=== PATIENT | male | born 1995 | race Caucasian/White ===

== ENCOUNTER 2021-03-01 18:27 | Emergency (ER) | payer SELFPAY ==
--- NOTE | ~2021-03-01 | XR_ITS ---
EXAMINATION: XR clavicle LT INDICATION: Left clavicle pain TECHNIQUE: Two views of the left clavicle are obtained. COMPARISON: None available FINDINGS: Bone alignment is normal. There is no fracture. The soft tissues are unremarkable. IMPRESSION: 1. No acute osseous abnormality. Reviewed, dictated and finalized at location A.
--- NOTE | ~2021-03-01 | XR_ITS ---
EXAMINATION: XR shoulder LT min 2V INDICATION: Left shoulder pain TECHNIQUE: Four views of the left shoulder are submitted. COMPARISON: None FINDINGS: Normal alignment. No fracture. Glenohumeral and acromioclavicular joint spaces are normal. Soft tissues are unremarkable. IMPRESSION: 1. No acute osseous abnormality. Reviewed, dictated and finalized at location A.
[2021-03-01 18:39] VITALS: BP 145/88; PULSE 95; RESP 16; TEMP 36.9; O2SAT 100
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
== END 2021-03-01 19:27 | disposition home or self-care (01) ==
PROVIDERS: Emergency Provider Nurse Practitioner
DX: S40.212A Abrasion of left shoulder, initial encounter (principal); S40.211A Abrasion of right shoulder, initial encounter; S40.812A Abrasion of left upper arm, initial encounter; S40.811A Abrasion of right upper arm, initial encounter; S60.512A Abrasion of left hand, initial encounter; S60.511A Abrasion of right hand, initial encounter; S46.912A Strain of unspecified muscle, fascia and tendon at shoulder and upper arm level, left arm, initial encounter; V28.4XXA Motorcycle driver injured in noncollision transport accident in traffic accident, initial encounter; T14.8XXA Other injury of unspecified body region, initial encounter; F17.210 Nicotine dependence, cigarettes, uncomplicated
CPT/HCPCS: 73000; 73030; 99213; A4565; G0463

== ENCOUNTER → 2021-04-25 14:05 | Outpatient (CLI) | payer MEDICAID, SELFPAY ==
--- NOTE | ~2021-04-25 | CT_ITS ---
EXAMINATION: CT abdomen pelvis w con EXAM DATE: 04/25/2021 14:30 INDICATION: Abdominal hernia, periumbilical pain. TECHNIQUE: Spiral CT of the abdomen and pelvis was performed following intravenous injection of 100 m L Omnipaque 350. Axial, coronal and sagittal images of the abdomen and pelvis were reviewed. The do se-length product (DLP) for this examination was 861.99 mGy-cm. The exposure was tailored according to patient size (auto mA exposure control), and iterative reconstruction (ASIR) was used as additiona l dose reduction technique. There is no prior study for comparison. FINDINGS: The liver, spleen, adrenal glands and pancreas are unremarkable. Gallbladder is unremarkab le. No biliary obstruction. Portal and splenic veins are patent. Kidneys enhance symmetrically. T here is no hydronephrosis. The prostate is unremarkable. The bladder is unremarkable. There is no retroperitoneal or pelvic lymphadenopathy. Small umbilical fat-containing hernia. The appendix is normal. The stomach and small bowel are unremarkable. There is expected amount of c olonic stool. No free intraperitoneal gas. The heart is normal in size. There are no pericardial or pleural effusions. The lung bases are unremarkable. There are no osteoblastic or osteolytic les ions identified. IMPRESSION: 1. Small umbilical fat-containing hernia. Reviewed, dictated and finalized at location B.
== END ==
PROVIDERS: PCP Student in an Organized Health Care Education/Training Program; Visit Provider Student in an Organized Health Care Education/Training Program
DX: K42.9 Umbilical hernia without obstruction or gangrene (principal)
CPT/HCPCS: 74177; Q9967

== ENCOUNTER 2023-12-31 19:55 | Emergency (ER) | payer OTHER, SELFPAY ==
[2023-12-31 20:00] VITALS: BP 125/65; PULSE 76; RESP 16; TEMP 36.5; O2SAT 99
--- NOTE | 2023-12-31 20:05 | ED.GENADULT ---
HPI - General Adult General Chief complaint: Upper Respiratory Infection Stated complaint: Sore Throat/Congestion/Cough Source: patient, RN notes reviewed and old records reviewed Mode of arrival: ambulatory Limitations: no limitations History of Present Illness HPI narrative: 28-year-old male patient presents to [facility] with complaints of cough, congestion, myalgia, fatigue,fever that started yesterday. Patient states taking [id number] medications with little relief. Patient states here for work note. Related Data Allergies Allergy/AdvReac Type Severity Reaction Status Date / Time No Known Allergies Allergy Unverified 12/31/23 20:08 Review of Systems Constitutional: Constitutional: Reports no additional constitutional complaints, Reports body ache(s), Denies chills, Reports fatigue, Reports fever(s) and Denies headache(s) Eyes: Eyes: Reports no additional eye complaints and Denies blurry vision ENT: Reports system reviewed and no additional complaints, except as documented, Denies vertigo, Denies dizziness, Denies ear discharge, Denies otalgia, Denies facial pain, Denies headache(s), Reports nasal congestion, Denies nasal discharge, Denies sinus pain, Denies sinus pressure and Denies sore throat Cardiovascular: Cardiovascular: Reports no additional cardiovascular complaints, Denies chest pain, Denies chest pain at rest, Denies rapid heart rate and Denies dyspnea Respiratory: Respiratory: Reports no additional respiratory complaints, Reports chest congestion, Reports cough, Denies pain on inspiration, Denies pain with cough and Denies dyspnea Gastrointestinal: Gastrointestinal: Denies abdominal pain, Denies diarrhea, Denies nausea and Denies vomiting Integumentary/Breasts: Skin/Breast: Denies rash Neurologic: Reports system reviewed and no additional complaints, except as documented, Denies vertigo, Denies dizziness and Denies headache(s) Endocrine: Endocrine: Denies fatigue PMFSH Past Medical History Medical History ADHD Social History Social History Smoking status: Current every day smoker Tobacco type: cigarettes Comments At the time of my signature, I reviewed and agree with the nursing past medical, surgical, social, and family history. There is no relevant family history pertinent to the patient complaint. Exam Const: General: cooperative, healthy appearing, no acute distress and well nourished Nutritional Appearance: well nourished Orientation/consciousness: patient oriented x3 Limitations: no limitations HENMT: Head: normal to inspection and normocephalic Ears: external ears normal, TM's normal bilaterally, EAC's normal and mastoids normal Face/Nose/Sinus: Normal nasal mucous membranes and turbinates present and normal facial exam Face and sinus: normal facial exam Mouth: Yes Normal oral and palatal mucosa present, Yes oropharynx normal and Yes moist mucous membranes Throat: tonsils normal, uvula midline and no uvular edema Eyes: General: appearance normal, both eyes and all related structures Sclera: sclerae normal Pupils: Equal, round and reactive pupils present Resp: Effort & Inspection: normal respiratory effort, able to speak in complete sentences, no audible wheezes, no cough, no respiratory distress and no retractions Auscultation: clear to auscultation bilaterally, no crackles, no rales, no rhonchi and no wheezes Cardio: Rate: regular rate Rhythm: regular rhythm Skin: General skin exam: normal color and no rashes or lesions noted Neuro: General: patient oriented x3 Cranial nerves: Yes Equal, round and reactive pupils present Psych: Appearance: grossly normal Mental Status: mental status grossly normal Speech and movement: Normal speech and movement present Affect: normal affect Course Course Emergency Course: Patient is aware of diagnosis, understands and agr
[2023-12-31 20:09] VITALS: BP 125/65; PULSE 76; RESP 16; TEMP 36.5; O2SAT 99
== END 2023-12-31 20:20 | disposition home or self-care (01) ==
PROVIDERS: Emergency Provider Registered Nurse
DX: B34.9 Viral infection, unspecified (principal); Z20.822 Contact with and (suspected) exposure to COVID-19; F17.210 Nicotine dependence, cigarettes, uncomplicated
CPT/HCPCS: 87081; 87426; 87804; 87880; 99213; G0463

== ENCOUNTER 2024-10-17 10:06 | Emergency (ER) | payer OTHER, SELFPAY ==
[2024-10-17 10:32] VITALS: BP 128/74; PULSE 51; RESP 17; TEMP 36.6; O2SAT 97
--- NOTE | 2024-10-17 11:43 | ED_ITS ---
HPI - URI/Sore Throat General Chief Complaint: Upper Respiratory Infection Stated Complaint: URI Time Seen by Provider: 10/17/24 11:43 Focused HPI: This is a 29 year old male that presents to the ER for cold symptoms present since yesterday. Reports cough, congestion, sore throat, myalgias. GENERAL: Well-appearing, well-nourished, and in no acute distress. HEAD: Normocephalic, atraumatic. CHEST: No respiratory distress. Lung sounds coarse, clears with coughing HEART: Regular rate and rhythm.? NEURO: ?Alert and oriented x3. Patient screened in triage and initial orders placed.? ?Additional care and disposition to be based upon?diagnostic testing and treatment. Related Data Allergies Allergy/AdvReac Type Severity Reaction Status Date / Time No Known Allergies Allergy Unverified 12/31/23 20:08 Review of Systems Review of Systems: CONSTITUTIONAL: Reports fever ENT: Reports rhinorrhea, congestion, sore throat RESPIRATORY: Reports cough All systems reviewed & are unremarkable except as noted in HPI and below PMFSH Past Medical History Medical History ADHD Social History Social History (Updated 10/17/24 @ 11:44 by Melissa Zhang PA-C) Smoking status: Current some day smoker Tobacco type: cigarettes Exam Narrative: GENERAL: Well-appearing, well-nourished, and in no acute distress. HEAD: Normocephalic, atraumatic. EYES: EOMI. ENT: Nares clear, no rhinorrhea or epistaxis. Mucous membranes moist. Oropharynx without tonsillar hypertrophy exudate or other lesions. Bilateral TMs pearly gutiérrez non-bulging NECK: Supple. No adenopathy or masses. CHEST: No respiratory distress. No wheezes rales or rhonchi. Coarse lung sounds that clear with cough HEART: Regular rate and rhythm. No murmur heard. Normal peripheral pulses. EXTREMITIES: Normal range of motion. No edema. SKIN: Warm, dry, no rash. NEURO: No focal deficits. Alert and oriented x3. PSYCH: Normal mood and affect Course Course Emergency Course: Patient updated on workup and agrees with plan of care Vital Signs Vital signs: Vital Signs Temperature 97.9 F 10/17/24 10:32 Pulse Rate 51 L 10/17/24 10:32 Respiratory Rate 17 10/17/24 10:32 Blood Pressure 128/74 10/17/24 10:32 Pulse Oximetry 97 10/17/24 10:32 Oxygen Delivery Room Air 10/17/24 10:32 Temperature 97.9 F 10/17/24 10:32 Pulse Rate 51 L 10/17/24 10:32 Respiratory Rate 17 10/17/24 10:32 Blood Pressure 128/74 10/17/24 10:32 Pulse Oximetry 97 10/17/24 10:32 Oxygen Delivery Room Air 10/17/24 10:32 MDM - URI/Sore Throat MDM Narrative Medical decision making narrative: Patient presents the emergency department for cold symptoms ongoing since yesterday. He is afebrile and nontoxic appearing. Oxygen saturation is normal on room air. Lung sounds coarse, but clears with coughing. Patient found to be influenza A positive. Patient updated on his workup and agrees with plan of care. Will be started on Tamiflu. Instructed on further symptomatic care viral infection. He is to follow up with primary provider. He was given warnings to return to the ER Differential Diagnosis Differential diagnosis: Likely upper respiratory infection, sinusitis, viral infection, bronchitis and influenza Lab Data Attestation: I reviewed the patient's lab results. Labs: Lab Results 10/17/24 Range/Units 11:21 Influenza A (RT-PCR) Positive A (Negative) Influenza B (RT-PCR) Negative (Negative) RSV (RT-PCR) Negative (Negative) SARS-CoV-2 RNA (RT-PCR) Negative (Negative) Group A Strep (PCR) Not detected (Negative) Critical Care Time Critical Care Time Critical Care Time: No Discharge Plan Discharge Clinical Impression: Influenza A Patient Disposition: Home, Self-Care Condition: Stable Instructions: Influenza (ED) Additional Instructions: Return to the emergency department for worsening symptoms, or any other concerns Remain well-hydrated, get plenty of rest. Take Tylenol or Motrin over-the-c ounter for pain as needed. Flonase for nasal congestion. Zyrtec for runny nose. Lozenges or Chloraseptic spray for sore throat. Take Tamiflu as prescribed. Albuterol 2 puffs every 4-6 hours as needed for shortness of breath or coughing Follow up with primary care doctor Patient Language: Trinidadian Prescriptions: New oseltamivir 75 mg capsule 75 mg PO Q12H 5 Days Qty: 10 0RF albuterol sulfate 90 mcg/actuation HFA aerosol inhaler 2 puff inhalation QID PRN (Reason: shortness of breath or wheezing) Qty: 8.5 0RF No Action ibuprofen 800 mg tablet 800 mg PO TID PRN (Reason: pain) Qty: 30 0RF baclofen 10 mg tablet 10 mg PO TID Qty: 30 0RF tramadol 50 mg tablet 50 mg PO Q6H PRN (Reason: pain) Qty: 10 0RF Follow-up/Referrals: UNKNOWN,DOCTOR [Primary Care Provider] -
[2024-10-17 11:56] LABS: Strep Group A RT-PCR NOT DETECTED (Negative)
[2024-10-17 12:05] LABS: Influenza A QL RT-PCR Positive (Negative); Influenza B QL RT-PCR Negative (Negative); RSV RNA, RT-PCR Negative (Negative); SARS-CoV-2 RNA PCR Negative (Negative)
[2024-10-17 12:50] VITALS: O2SAT 99
--- OUTSIDE RECORDS SUMMARY | 2024-10-23 17:48 | XMS_ITS | Encounter Summary ---
Author Organization [facility] Address [address] [place] [address]. 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 Name Role Phone Saumya Nunes DO Primary Care Provider + Reason for Visit * Reason Onset Date Comments Results 12/23/2022 Encounter Details Date Type Department Care Team (Late st Contact Info) Description 12/23/2022 Telephone [facility] Family [facility] Internal Medicine [id number] [place] [address] Saumya Nunes DO [facility] [place], [place] [id number] Results Social History Tobacco Use Types Packs/Day Years Used Date Smoking Tobacco: Former Cigarettes 0.5 5 0 06/08/2014 - 06/08/2019 Smokeless Tobacco: Never Alcohol Use Standard Drinks/Week Comments No 0 (1 standard drink = 0.6 oz pur e alcohol) AUDIT-C Answer Date Recorded Frequency of Alcohol Consumption Never 08/08/2019 Average Number of Drinks Not on file 019 Frequency of Binge Drinking Not on file 07/13 PHQ-2 Answer Date Recorded PHQ-2 Score - If the patient scores above 3, please move on to questions 3-9 3 04/03/2021 Sex and Gender Information Value Date Recorded Sex Assigned at Not on file Legal Sex Male 9:05 AM CDT Gender Identity Not on file Sexual Orientation Not on file 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 Recommend 2000 IU supplementation daily. Potassium is mildly low; [id number] mEq daily for 21 days. Then recheck BMP and magnesium. Other labs are stable and can be repeatedin 1 year. documented in this encounter Plan of Treatment Not on file documented as of this encounter Results * MAGNESIUM (01/14/2023 8:16 AM CDT) MAGNESIUM 1.8 1.8 - 2.4 MG/DL 01/14/2023 3:09 PM CDT [facility] 01/14/2023 8:16 AM CDT us Saumya Nunes DO LABORATORY Final Re sult [facility] [address] [place] [address], * (ABNORMAL) BASIC METABOLIC PANEL (01/14/2023 8:16 AM CDT) [facility] SODIUM S/P/B 141 136 - 145 MMOL/L 01/14/2023 3:09 PM CDT [facility] POTASSIUM S/P/B 3.6 3.5 - 5.1 MMOL/L 01/14/2023 3:09 PM CDT [facility] CHLORIDE S/P/B 105 98 - 107 MMOL/L 01/14/2023 3:09 PM CDT [facility] CO2 26.4 21 - 32 MMOL/L 01/14/2023 3:09 PM CDT [facility] GLUCOSE 113(H) 70 - 99 MG/DL 01/14/2023 3:09 PM CDT [facility] BUN 19(H) 7 - 18 MG/DL 01/14/2023 3:09 PM CDT [facility] CREATININE S/P/B 0.82 0.70 - 1.30 MG/DL 01/14/2023 3:09 PM CDT [facility] CALCIUM S/P/B 8.2(L) 8.4 - 10.5 MG/DL 01/14/2023 3:09 PM CDT [facility] ANION GAP 9.6 5 - 15 MMOL/L 01/14/2023 3:09 PM CDT [facility] Comment:REFERENCE RANGE NOT ESTABLISHED OSMOLALITY (CALC) 295 MOSM/KG 023 3:09 PM CDT [facility] Comment:REFERENCE RANGE NOT ESTABLISHED GFR ESTIMATE >90 >90 ML/MIN/1. 73 M2 01/14/2023 3:09 PM CDT [facility] GFR NOTES GFR REFERENCE S: 01/14/2023 3:09 PM CDT [facility] Comment: THE ESTIMATED GFR IS CALCULATED USING THE 2020 CKD-EPI EQUATION. THE FOLLOWING CATEGORIES FOR GRADING RENAL FUNCTION ARE RECOMMENDED BY THE INTERNATIONAL SOCIETY OF NEPHROLOGY (KDIGO 2012 CLINICAL PRACTICE GUIDELINE). G1,NORMAL OR HIGH: >89 ml/min/1.73 m2 G2,MILDLY DECREASED: 60-89 ml/min/1.73 m2 G3A,MILDLY TO MODERATELY DECREASED: 45-59 ml/min/1.73 m2 G3B,MODERATELY TO SEVERELY DECREASED: 30-44 ml/min/1.73 m2 G4,SEVERELY DECREASED: 15-29 ml/min/1.73 m2 G5,KIDNEY FAILURE: <15 ml/min/1.73 m2 01/14/2023 8:16 AM CDT Saumya Nunes DO LABORATORY Final Re sult [facility] [address] [place] [address], documented in this encounter Visit Diagnoses Diagnosis Hypopotassemia- Primary documented in this encounter Additional Health Concerns Assessment Noted Time PHQ-9 Depression Total Score: 12 021 2:00 PM CDT documented as of this encounter Care Teams Bag Press Operator Relationship Specialty Start Date End Date Saumya Nunes DO [address] [place] [id number] PCP - General FAMILY PRACTICE 08/08/19 documented as of this encounter
--- OUTSIDE RECORDS SUMMARY | 2024-10-23 17:48 | XMS_ITS | Encounter Summary ---
Author Organization [facility] Address [address] [place] [address]. [place] [address] Care Team Providers Care Slot Operations Director Name Role Phone Kwesi Shipman DO Primary Care Provider + Reason for Referral * Imaging (Routine) - Closed Specialty Diagnoses / Procedures Referred By Jamison vegas Referred To Contact RADIOLOGY Diagnoses Abdominal hernia without obstruction and without gangrene, recurrence not specified, unspecified hernia type Periumbilical abdominal pain k46.[address] ABD+PEL W CON Kwesi Shipman DO [address] [place] [address] Phone: tel: fax: [facility] [address] [facility] [address] [place] [address] Phone: tel: fax: Referral ID Status Reason Start Date Expiration Date Visits Re quested Visits Authorized [id number] Closed 04/09/2021 05/08/2021 1 1 * Consultation/Treatment (Urgent) - Closed Specialty Diagnoses / Procedures Referred By Jamison vegas Referred To Contact Neurology Psychiatry Diagnoses Severe episode of recurrent major depressive disorder, without psychotic features ([facility]/HCC [facility]/HCC) PTSD (post-traumatic stress disorder) Kwesi Shipman DO [address] [place] [address] Phone: tel: fax: Robbi Montague MD Phone: tel: fax: Referral ID Status Reason Start Date Expiration Date V isits Requested Visits Authorized [id number] Closed Specialty Services 04/03/2021 05/03/2022 99 99 Reason for Visit * Reason Comments Depression follow up Encounter Details Date Type Department Care Team (Late st Contact Info) Description 04/03/2021 2:00 PM CDT Office Visit [facility] Family & Internal Medicine [facility] [address] [place] [address] Kwesi Shipman DO [facility] [place] [address] Depression (follow up ) Social History Tobacco Use Types Packs/Day Years [...] 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 No / Unsure 04/03/2021 1:35 PM CDT documented as of this encounter Last Filed Vital Signs Vital Sign Reading Time Taken Comments Blood Pressure 102/66 04/03/2021 1:56 PM CDT Pulse 88 04/03/2021 1:56 PM CDT Temperature 37 ??C (98.6 ??F) 04/03/2021 1:56 PM CDT Respiratory Rate 16 04/03/2021 1:56 PM CDT Oxygen Saturation 98% 04/03/2021 1:56 PM CDT Inhaled Oxygen Concentration - - Weight 89 kg (196 lb 1.6 oz) 04/03/2021 1:56 PM CDT Height 172.7 cm (5' 8 ) 04/03/2021 1:56 PM CDT Body Mass Index 29.82 04/03/2021 1:56 PM CDT documented in this encounter Patient Instructions * Patient Instructions* Kwesi Shipman DO - 04/03/2021 2:00 PM CDT [facility] Address:??[address], [place] [address] Phone:?? documented in this encounter Progress Notes * Kwesi Shipman DO - 04/03/2021 2:00 PM CDT Images from the original note were not included. GENERAL OFFICE VISIT Encounter Date: 04/03/2021 Chief Complaint: 26-year-old male presents for Depression (follow up ) HPI: Pt has possible hernia in his abdomen. It is not bothering him as much at this time. It has been there for about 4 years. He has not had it evaluated previously. Pt has hx of multiple psychiatric problems. Pt was recently in a mental facility at [facility]; per pt, this was in October. Pt will have moments where he spazes out. He is trying meditation. He quit drinking alcohol. Pt is having difficulty with sleep. His anxiety is going as high as it can. He is not seeing anyone at [facility] at this time and will not go back. Pt was referred to [facility] at some point and was given alprazolam 1 mg. He had a problem with a pill count in the past. He states he is unsure what medications he was given after he was discharged from [facility]. Pt has been on Zyprexa, Cymbalta, and Carbamazepine. He states he had rashes with some of them. He was given Seroquel in the past as well. Review of Systems Constitutional: Negative for fever. Gastrointestinal: See HPI Psychiatric/Behavioral: See HPI Patient Active Problem List Diagnosis ??? Severe episode of recurrent major depressive disorder, without psychotic features (CMS/HCC) ??? Chronic bilateral low back pain without sciatica ??? Vitamin D deficiency ??? Carpal tunnel syndrome of right wrist ??? Hemorrhoids, unspecified hemorrhoid type Past Medical History: Diagnosis Date ??? ADD (attention deficit disorder) ??? Anxiety ??? Depression Past Surgical History: Procedure Laterality Date ??? HAND SURGERY right hand ??? TONSILLECTOMY Family History Problem Relation Name Age of Onset ??? Hypertension Mother ??? Hypertension Father Social History Socioeconomic History ??? Marital status: Spouse name: Not on file ??? Number of children: Not on file ??? Years of education: Not on file ??? Highest education level: Not on file Occupational History ??? 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 Smoking status: Former Smoker Packs/day: 0.50 Years: 5.00 Pack years: 2.50 Types: Cigarettes Quit date: 06/08/2019 Years since quittin.8 ??? Smokeless tobacco: Never Used Substance and Sexual Activity ??? Alcohol use: No ??? Drug use: Yes Frequency: 7.0 times per week Types: Marijuana ??? Sexual activity: Not on file Other Topics Concern ??? Not on file Social History Narrative ??? Not on file Social Determinants of Health Financial Resource Strain: ??? Difficulty of Paying Living Expenses: Food Insecurity: ??? Worried About Running Out of Food in the Last Year: ??? Ran Out of Food in the Last Year: Transportation Needs: ??? Lack of Transportation (Medical): ??? Lack of Transportation (Non-Medical): Physical Activity: ??? Days of Exercise per Week: ??? Minutes of Exercise per Session: Stress: ??? Feeling of Stress : Social Connections: ??? Frequency of Communication with Friends and Family: ??? Frequency of Social Gatherings with Friends and Family: ??? Attends Alevism Services: ??? Active Member of Clubs or Organizations: ??? Attends Club or Organization Meetings: ??? Marital Status: Intimate Partner Violence: ??? Fear of Current or Ex-Partner: ??? Emotionally Abused: ??? Physically Abused: ??? Sexually Abused: Immunization History Administered Date(s) Administered ??? Dtap 07/11/1997 ??? Dtp 1996, 1996, 1996 ??? HPV4 (Gardasil) 04/18/2011, 06/26/2011, 10/27/2011 ??? Hepatitis B Pediatric 1996, 1996, 1996 ??? Hib 1996, 1996, 1996, 07/11/1997 ??? Influenza Adult (Generic) 06/26/2011 ??? MMR 07/11/1997 ??? Opv 1996, 1996, 1996 ??? Varicella Vaccine 03/15/1997, 04/18/2011 Current Outpatient Medications Medication Sig Dispense Refill ??? escitalopram (LEXAPRO) 10 MG tablet Take 1/2 tab daily for one week, then take 1 tablet daily 30 tablet 2 ??? hydrOXYzine 50 MG tablet TK 1 TO 2 TS PO Q 8 H PRF ANXIETY ??? triamcinolone 0.1 % cream Apply topically 2 (two) times daily. 45 g 1 No current facility-administered medications for this visit. Current Outpatient Medications on File Prior to Visit Medication Sig ??? hydrOXYzine 50 MG tablet TK 1 TO 2 TS PO Q 8 H PRF ANXIETY ??? triamcinolone 0.1 % cream Apply topically 2 (two) times daily. No current facility-administered medications on file prior to visit. No Known Allergies Objective: Filed Vitals: 04/03/21 1356 BP: 102/66 Pulse: 88 Resp: 16 Temp: 98.6 ??F (37 ??C) TempSrc: Skin SpO2: 98% Weight: 89 kg (196 lb 1.6 oz) Height: 5' 8 (1.727 m) Physical Exam Constitutional: He is oriented to person, place, and time and well-developed, well-nourished, and in no distress. HENT: Head: Normocephalic and atraumatic. Right Ear: External ear normal. Left Ear: External ear normal. Eyes: Conjunctivae are normal. No scleral icterus. Cardiovascular: Normal rate, regular rhythm and normal heart sounds. Exam reveals no gallop and no friction rub. No murmur heard. Pulmonary/Chest: Effort normal and breath sounds normal. No respiratory distress. He has no wheezes. He has no rales. Abdominal: Soft. Possible hernia palpated to right of umbilicus, pain with palpation but not severe, no pain in RUQ or RLQ, only palpation of given area Musculoskeletal: General: No edema. Cervical back: Neck supple. Neurological: He is alert and oriented to person, place, and time. Skin: Skin is warm and dry. No rash noted. Psychiatric: Mood and affect normal. Nursing note and vitals reviewed. Assessment & Plan: Kwesi was seen today for depression. Diagnoses and all orders for this visit: Severe episode of recurrent major depressive disorder, without psychotic features (CMS/HCC) - Ambulatory Referral to Psychiatry - escitalopram (LEXAPRO) 10 MG tablet; Take 1/2 tab daily for one week, then take 1 tablet daily PTSD (post-traumatic stress disorder) - Ambulatory Referral to Psychiatry - escitalopram (LEXAPRO) 10 MG tablet; Take 1/2 tab daily for one week, then take 1 tablet daily Abdominal hernia without obstruction and without gangrene, recurrence not specified, unspecified hernia type - CT ABD+PEL W CON; Future - CT ABD+PEL W CON Periumbilical abdominal pain - CT ABD+PEL W CON; Future - CT ABD+PEL W CON Vitamin D deficiency - VITAMIN D, 25 OH; Future - VENIPUNC ARM DRAW - VITAMIN D, 25 OH Screening for lipid disorders - LIPID PANEL; Future - VENIPUNC ARM DRAW - LIPID PANEL Screening for endocrine, metabolic and immunity disorder - CBC W/DIFF AUTOMATED; Future - COMPREHENSIVE METABOLIC PANEL; Future - TSH W/REFLEX; Future - VENIPUNC ARM DRAW - CBC W/DIFF AUTOMATED - COMPREHENSIVE METABOLIC PANEL - TSH W/REFLEX Annual physical exam - CBC W/DIFF AUTOMATED; Future - COMPREHENSIVE METABOLIC PANEL; Future - TSH W/REFLEX; Future - LIPID PANEL; Future - VITAMIN D, 25 OH; Future - VENIPUNC ARM DRAW - CBC W/DIFF AUTOMATED - COMPREHENSIVE METABOLIC PANEL - TSH W/REFLEX - LIPID PANEL - VITAMIN D, 25 OH Discussion/Summary: We will start patient on Lexapro today. Discussed side effect profile. Will refer to psychiatry as patient needs psychiatric care given his history. Will order labs per above. Will order CT of abdomen for further evaluation for possible hernia but to rule out other pathology given his chronic abdominal pain as well. Will dictate follow-up based upon above testing and follow-up with psychiatry. Patient verbalized understanding. Kwesi Shipman DO documented in this encounter Plan of Treatment Scheduled Referrals Name Type Priority Associated Diagnoses Orde r Schedule Ambulatory Referral to Psychiatry Referral Routine Severe episode of recurrent major depressive disorder, without psychotic features ([facility]/HCC [facility]) PTSD (post-traumatic stress disorder) Ordered: 04/03/2021 documented as of this encounter Procedures Procedure Name Priority Date/Time Associated Diagnosis Comments CT ABD+PEL W CON Routine 04/25/2021 12:0 0 AM CDT Abdominal hernia without obstruction and without gangrene, recurrence not specified, unspecified hernia type Periumbilical abdominal pain COLLECTION VENOUS BLOOD VENIPUNCTURE Routine 04/03/2021 2:31 PM CDT Vitamin D deficiency Screening for lipid disorders Screening for endocrine, metabolic and immunity disorder Annual physical exam TSH W/REFLEX Routine 04/03/2021 2:31 PM CDT Screening for endocrine, metabolic and immunity disorder Annual physical exam ADDITIONAL TEST INFORMATION Routine 04/03/2021 2:31 PM CDT COMPREHENSIVE METABOLIC PANEL Routine 04/03/2021 2:31 PM CDT Screening for endocrine, metabolic and immunity disorder Annual physical exam LIPID PANEL Routine 04/03/2021 2:31 PM CDT Screening for lipid disorders Annual physical exam CBC W/DIFF AUTOMATED Routine 04/03/2021 2:31 PM CDT Screening for endocrine, metabolic and immunity disorder Annual physical exam VITAMIN D, 25 OH Routine 04/03/2021 2:31 PM CDT Vitamin D deficiency Annual physical exam documented in this encounter Results * CT ABD+PEL W CON (04/25/2021 12:00 AM CDT) Anatomical Region Laterality Modality Abdomen Computed Tomogra phy 04/25/[address] Final Re sult * ADDITIONAL TEST INFORMATION (04/03/2021 2:31 PM CDT) SPEC DESCRIPTION [facility] Comment: Whole blood, unspun or partially spun gel barrier tube was received more than 6 hours since collection. A false elevation of K, Phos and LD as well as a false decrease in glucose may occur due to prolonged contact with red cells. 04/03/2021 2:31 PM CDT 04/04/2021 5:32 AM CDT Kwesi Shipman DO LABORATORY Final Re sult [facility] [address] [place] [address] * (ABNORMAL) VITAMIN D, 25 OH (04/03/2021 2:31 PM CDT) VITAMIN D 25 HYDROXY TOTAL S/P/B 30.4 >29.9 ng/mL [facility] Comment: Vitamin D, 25-Hydroxy reports concentrations of two common forms, 25-OHD2 and 25-OHD3. 25-OHD3 indicates both endogenous production and supplementation. 25-OHD2 is an indicator of exogenous sources, such as diet or supplementation. Therapy is based on measurement of Total 25-OHD, with levels <20 ng/mL indicative of Vitamin D deficiency, while levels between 20 ng/mL and 30 ng/mL suggest insufficiency. Optimal levels are >=30 ng/mL. Vitamin-D is fat-soluble and therefore inadvertent or intentional ingestion of excessively high amounts could be toxic. Studies in children and adults suggest blood levels would need to exceed 150 ng/mL before there is any concern. Mickie Minaya Bischoff-ferrari HA et al. Evaluation, treatment, and prevention of vitamin D deficiency: an Endocrine Society clinical practice guideline. J Clin Endocrinol Metab. 2011;96(7):1911-30.This test is performed by a Liquid Chromatography-Tandem Mass Spectrometry (LC-MS/MS) method. This test was developed and its performance characteristics determined by the [employer] (app). It has not been cleared or approved by the U.S. FDA. The [employer]). is regulated under Clinical Laboratory Improvement Amendments (CLIA) as qualified to perform high-complexity testing. This test is used for clinical purposes. It should not be regarded as investigational or for research. Vitamin D, 25-Hydroxy reports concentrations of two common forms, 25-OHD2 and 25-OHD3. 25-OHD3 indicates both endogenous production and supplementation. 25-OHD2 is an indicator of exogenous sources, such as diet or supplementation. Therapy is based on measurement of Total 25-OHD, with levels <20 ng/mL indicative of Vitamin D deficiency, while levels between 20 ng/mL and 30 ng/mL suggest insufficiency. Optimal levels are > or = 30 ng/mL. Vitamin D is fat-soluble and therefore inadvertent or intentional ingestion of excessively high amounts could be toxic. Studies in children and adults suggest blood levels would need to exceed 150 ng/mL before there is any concern. Mickie Minaya, Sulaiman ESCALERA et al., Evaluation, treatment, and prevention of vitamin D deficiency: an Endocrine Society clinical practice guideline. J Clin. Endocrinol. Metab. 2011;96(7):1911-30. VITAMIN D 25 HYDROXY D3 S/P/B 30.4 ng/mL [facility] [facility] [employer] [employer] Comment: This test was developed and its analytical performance characteristics have been determined by [facility] It has not been cleared or approved by the FDA. This assay has been validated pursuant to the CLIA regulations and is used for clinical purposes. VITAMIN D 25 HYDROXY D2 S/P/B <1.0(L) ng/mL [facility]enn[facility] [employer]. Comment: This test was developed and its analytical performance characteristics have been determined by [facility] [employer] It has not been cleared or approved by the FDA. This assay has been validated pursuant to the CLIA regulations and is used for clinical purposes. 04/03/2021 2:31 PM CDT 04/04/2021 5:15 AM CDT Kwesi Shipman DO LABORATORY Final Re sult [facility] [place] [facility] [employer]. [address], [address] [place] [address] * LIPID PANEL (04/03/2021 2:31 PM CDT) CHOLESTEROL 158 <200 mg/dL [facility] HDL 71 > OR = 40 mg/dL [facility] TRIGLYCERIDES 51 <150 mg/dL [facility] LDL (CALCULATED) 74 mg/dL (calc) [facility] Comment: Reference range: <100 Desirable range <100 mg/dL for primary prevention; ?? <70 mg/dL for patients with CHD or diabetic patients with > or = 2 CHD risk factors. LDL-C is now calculated using the Gurvinder-Noble calculation, which is a validated novel method providing better accuracy than the Friedewald equation in the estimation of LDL-C. Gurvinder SS et al. KAVYA. 2013;310(19): 2132-1534 (http://education.Triage.[employer]/faq/CJW935) CHOL/HDL RATIO 2.2 <5.0 (calc) [facility] NON HDL CHOLESTEROL 87 <130 mg/dL (calc) [facility] Comment: For patients with diabetes plus 1 major ASCVD risk factor, treating to a non-HDL-C goal of <100 mg/dL (LDL-C of <70 mg/dL) is considered a therapeutic option. 04/03/2021 2:31 PM CDT 04/04/2021 5:32 AM CDT Kwesi Shipman DO LABORATORY Final Re sult Performing Organization Address City/[facility]/ZIP Co de Phone Number [facility] [address] [place] [address] * TSH W/REFLEX (04/03/2021 2:31 PM CDT) TSH 1.93 0.40 - 4.50 mIU/L [facility] 04/03/2021 2:3 1 PM CDT 04/04/2021 5:32 AM CDT Kwesi Shipman DO LABORATORY Final Re sult Performing Organization Address [facility] Co de Phone Number [facility] [address] [place] [address] * COMPREHENSIVE METABOLIC PANEL (04/03/2021 2:31 PM CDT) GLUCOSE 69 65 - 99 mg/dL [facility] Comment: ? Fasting reference interval BUN 15 7 - 25 mg/dL [facility] CREATININE S/P/B 0.97 0.60 - 1.35 mg/dL [facility] EGFR NON-AFR. AMER. 108 > OR = 60 mL/min/1. 73m2 [facility] EGFR AFR. AMER. 125 > OR = 60 mL/min/1. 73m2 [facility] BUN CREATININE RATIO NOT APPLICABLE 6 - 22 (calc) [facility] SODIUM S/P/B 141 135 - 146 mmol/L [facility] POTASSIUM S/P/B 4.9 3.5 - 5.3 mmol/L [facility] CHLORIDE S/P/B 102 98 - 110 mmol/L [facility] CO2 22 20 - 32 mmol/L [facility] CALCIUM S/P/B 10.0 8.6 - 10.3 mg/dL [facility] TOTAL PROTEIN S/P/B 7.0 6.1 - 8.1 g/dL [facility] ALBUMIN S/P/B 4.4 3.6 - 5.1 g/dL [facility] GLOBULIN 2.6 1.9 - 3.7 g/dL (calc) [facility] ALBUMIN/GLOBULI N RATIO 1.7 1.0 - 2.5 (calc) [facility] BILIRUBIN TOTAL S/P/B 0.5 0.2 - 1.2 mg/dL [facility] ALKALINE PHOSPHATASE S/P/B 63 36 - 130 U/L [facility] AST 19 10 - 40 U/L [facility] ALT 14 9 - 46 U/L [facility] 04/03/2021 2:31 PM CDT 04/04/2021 5:32 AM CDT Kwesi Shipman DO LABORATORY Final Re sult [facility] [address] [facility] [place] [address] * (ABNORMAL) CBC W/DIFF AUTOMATED (04/03/2021 2:31 PM CDT) WBC 7.8 3.8 - 10.8 Thousand/u L [facility] RBC 5.48 4.20 - 5.80 Million/uL [facility] HGB 17.1 13.2 - 17.1 g/dL [facility] HCT 51.4(H) 38.5 - 50.0 % [facility] MCV 93.8 80.0 - 100.0 fL [facility] MCH 31.2 27.0 - 33.0 pg [facility] MCHC 33.3 32.0 - 36.0 g/dL [facility] RDW 12.0 11.0 - 15.0 % [facility] PLT 302 140 - 400 Thousand/u L [facility] MPV 8.9 7.5 - 12.5 fL [facility] ABS. NEUTROPHILS 3,970 1,500 - 7,800 cells/uL [facility] ABS. LYMPHOCYTES 2,597 850 - 3,900 cells/uL [facility] ABS. MONOCYTES 749 200 - 950 cells/uL [facility] ABS. EOSINOPHILS 421 15 - 500 cells/uL [facility] ABS. BASOPHILS 62 0 - 200 cells/uL [facility] SEG NEUTROPHILS 50.9 % [facility] LYMPHOCYTES 33.3 % [facility] MONOCYTES 9.6 % [facility] EOSINOPHILS 5.4 % [facility] BASOPHILS 0.8 % [facility] 04/03/2021 2:31 PM CDT 04/04/2021 5:32 AM CDT Kwesi Shipman DO LABORATORY Final Re sult [facility] [address] [place] [address] documented in this encounter Visit Diagnoses Diagnosis Severe episode of recurrent major depressive disorder, without psychotic features ([facility]/HCC [facility])- Primary PTSD (post-traumatic stress disorder) Posttraumatic stress disorder Abdominal hernia without obstruction and without gangrene, recurrence not specified, unspecified hernia type Periumbilical abdominal pain Abdominal pain, periumbilic Vitamin D deficiency Unspecified vitamin D deficiency Screening for lipid disorders Screening for endocrine, metabolic and immunity disorder Annual physical exam Routine general medical examination at a health care facility documented in this encounter Additional Health Concerns Assessment Noted Time PHQ-9 Depression Total Score: 12 021 2:00 PM CDT documented as of this encounter Care Teams Slot Operations Director Relationship Specialty Start Date End Date Kwesi Shipman DO [address] [place] [id number] PCP - General FAMILY PRACTICE 08/08/19 documented as of this encounter
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
--- OUTSIDE RECORDS SUMMARY | 2024-10-23 17:48 | XMS_ITS | Encounter Summary ---
Author Organization [facility] Address [address] [place] [address]. [place], [place] [id number] [place] [address] Care Team Providers Care Ultra Sound Technician Name Role Phone Kwesi Shipman DO Primary Care Provider + Encounter Details Date Type Department Care Team (Latest Contact Info) Description 02/16/2020 Travel Social History Tobacco Use Types Packs/Day Years [...] 07/13 PHQ-2 Answer Date Recorded PHQ-2 Score 5 09/12/2019 Sex and Gender Information Value Date Recorded Sex Assigned at Not on file Legal Sex Male 9:05 AM CDT Gender Identity Not on file Sexual Orientation Not on file COVID-19 Exposure Response Date Recorded In the last month, have you been in contact with someone who was confirmed or suspected to have Coronavirus / COVID-19? No / Unsure 02/16/2020 7:04 AM CDT documented as of this encounter Plan of Treatment Not on file documented as of this encounter Visit Diagnoses Not on filedocumented in this encounter Care Teams Ultra Sound Technician Relationship Specialty Start Date End Date Kwesi Shipman DO [address] [place], [place] [id number] PCP - General FAMILY PRACTICE 08/08/19 documented as of this encounter
--- OUTSIDE RECORDS SUMMARY | 2024-10-23 17:48 | XMS_ITS | Encounter Summary ---
Author Organization [facility] Address [address] [place] [address]. [place] [id number] [place], [place] [id number] Care Team Providers Care Store Team Member Name Role Phone Kwesi Shipman DO Primary Care Provider + Encounter Details Date Type Department Care Team (Latest Contact Info) Description 08/23/2019 6:09 PM CONSERVATION BIOLOGY PROFESSOR - 08/23/2019 11:59 PM [facility] Hospital Encounter [facility] [place] [address] Kwesi Shipman DO [address] [place], [place] [phone] Discharge Disposition: Home or Self Care (Routine Discharge) Social History Tobacco Use Types Packs/Day Years [...] of Binge Drinking Not on file 07/13 Sex and Gender Information Value Date Recorded Sex Assigned at Not on file Legal Sex Male 9:05 AM CDT Gender Identity Not on file Sexual Orientation Not on file documented as of this encounter Medications at Time of Discharge duloxetine 30 MG capsuleIndication s:Severe episode of recurrent major depressive disorder, without psychotic features ([facility]/HCC [facility]/HCC) Take 1 tab daily for 1 week, then take 2 tabs daily 60 capsule 2 08/08/2019 09/12/2019 documented as of this encounter Plan of Treatment Not on file documented as of this encounter Procedures Procedure Name Priority Date/Time Associated Diagnosis Comments TSH W/REFLEX Routine 08/23/2019 1:41 PM CONSERVATION BIOLOGY PROFESSOR Annual physical exam Screening for endocrine, metabolic and immunity disorder COMPREHENSIVE METABOLIC PANEL Routine 08/23/2019 1:41 PM CONSERVATION BIOLOGY PROFESSOR Annual physical exam Screening for endocrine, metabolic and immunity disorder CBC W/DIFF AUTOMATED Routine 08/23/2019 1:41 PM CONSERVATION BIOLOGY PROFESSOR Annual physical exam Screening for endocrine, metabolic and immunity disorder VITAMIN D, 25 OH Routine 08/23/2019 1:41 PM CONSERVATION BIOLOGY PROFESSOR Annual physical exam Screening for endocrine, metabolic and immunity disorder documented in this encounter Results * (ABNORMAL) VITAMIN D, 25 OH (08/23/2019 1:41 PM CONSERVATION BIOLOGY PROFESSOR) Pathologist [facility] VITAMIN D 25 HYDROXY S/P/B 19(L) 30 - 100 NG/ML 08/23/2019 8:18 PM CONSERVATION BIOLOGY PROFESSOR [facility] Comment: ? INTERPRETATION ? DEFICIENT ??<20 ? INSUFFICIENT 20-29 ?SUFFICIENT 30-100 08/23/2019 1:41 PM CONSERVATION BIOLOGY PROFESSOR us Kwesi Shipman DO LABORATORY Final Re sult [facility] [address] [place] [address], [place] [phone] * TSH W/REFLEX (08/23/2019 1:41 PM CONSERVATION BIOLOGY PROFESSOR) Pathologist [facility] TSH 2.520 0.358 - 3.74 uIU/ML 08/23/2019 7:53 PM [facility] Comment: HIGH DOSES OF BIOTIN MAY INTERFERE WITH THIS TEST RESULT. CORRELATION TO CLINICAL HISTORY AND PRESENTATION RECOMMENDED. FREE T4 NOT INDICATED 08/23/2019 1:41 PM CONSERVATION BIOLOGY PROFESSOR Kwesi Shipman DO LABORATORY Final Re sult [facility] [address] [place] [address], [place] [phone] * (ABNORMAL) COMPREHENSIVE METABOLIC PANEL (08/23/2019 1:41 PM CONSERVATION BIOLOGY PROFESSOR) GLUCOSE 74 70 - 99 MG/DL 08/23/2019 7:53 PM [facility] BUN 12 7 - 18 MG/DL 08/23/2019 7:53 PM [facility] CREATININE S/P/B 0.91 0.7 - 1.3 MG/DL 08/23/2019 7:53 PM [facility] SODIUM S/P/B 141 136 - 145 MMOL/L 08/23/2019 7:53 PM [facility] POTASSIUM S/P/B 4.1 3.5 - 5.1 MMOL/L 08/23/2019 7:53 PM [facility] CHLORIDE S/P/B 108 100 - 108 MMOL/L 08/23/2019 7:53 PM [facility] CO2 26.8 21 - 32 MMOL/L 08/23/2019 7:53 PM [facility] CALCIUM S/P/B 8.9 8.5 - 10.1 MG/DL 08/23/2019 7:53 PM [facility] BILIRUBIN TOTAL S/P/B 0.7 0.2 - 1.2 MG/DL 08/23/2019 7:53 PM [facility] TOTAL PROTEIN S/P/B 6.8 6.4 - 8.2 G/DL 08/23/2019 7:53 PM [facility] ALBUMIN S/P/B 4.2 3.4 - 5.0 G/DL 08/23/2019 7:53 PM [facility] AST 14(L) 15 - 37 U/L 08/23/2019 7:53 PM [facility] ALT 24 16 - 60 U/L 08/23/2019 7:53 PM [facility] ALKALINE PHOSPHATASE S/P/B 72 50 - 136 U/L 08/23/2019 7:53 PM [facility] ANION GAP 6.2 5 - 15 MMOL/L 08/23/2019 7:53 PM [facility] BUN CREATININE RATIO 13.2 6 - 26 08/23/2019 7:53 PM [facility] A/G RATIO 1.6 1.0 - 2.0 RATIO 08/23/2019 7:53 PM [facility] EGFR NON-AFR. AMER. >90 >90 ML/MIN/1.7 3 M2 08/23/2019 7:53 PM [facility] EGFR AFR. AMER. >90 >90 ML/MIN/1.7 3 M2 08/23/2019 7:53 PM [facility] Comment: NOTE: eGFR is not calculated for patients <18 years of age. This is an estimated GFR (CKD EPI) and should not be used for calculating drug doses. 08/23/2019 1:41 PM CONSERVATION BIOLOGY PROFESSOR us Kwesi Shipman DO LABORATORY Final Re sult [facility] [address] [place] [address], [place] [phone] * (ABNORMAL) CBC W/DIFF AUTOMATED (08/23/2019 1:41 PM CONSERVATION BIOLOGY PROFESSOR) [facility] WBC 8.8 4.5 - 11.0 x10'3/uL 08/23/2019 8:08 PM [facility] RBC 5.47 4.70 - 6.10 x10'6/uL 08/23/2019 8:08 PM [facility] HGB 16.4 14.0 - 18.0 G/DL 08/23/2019 8:08 PM [facility] HCT 50.3 43.0 - 54.0 % 08/23/2019 8:08 PM [facility] MCV 92.0 80.0 - 94.0 FL 08/23/2019 8:08 PM [facility] MCH 30.0 27.0 - 31.0 PG 08/23/2019 8:08 PM [facility] MCHC 32.6 32.0 - 36.0 G/DL 08/23/2019 8:08 PM [facility] RDW 11.9 11.5 - 14.5 % 08/23/2019 8:08 PM [facility] PLT 265 130 - 400 x10'3/uL 08/23/2019 8:08 PM [facility] MPV 10.1 9.3 - 12.2 FL 08/23/2019 8:08 PM [facility] DIFFERENTIAL TYPE AUTOMATED DIFFERENTIAL 08/23/2019 8:08 PM [facility] NEUTROPHILS % 49.6 % 08/23/2019 8:08 PM [facility] LYMPHOCYTES % 35.6 % 08/23/2019 8:08 PM [facility] MONOCYTES % 9.8 % 08/23/2019 8:08 PM [facility] EOSINOPHILS 4.0 % 08/23/2019 8:08 PM CONSERVATION BIOLOGY PROFESSOR [facility] BASOPHILS 0.7 % 08/23/2019 8:08 PM [facility] IMMATURE GRANS % 0.3 % 08/23/20 19 8:08 PM [facility] ABS. NEUTROPHILS TOTAL 4.35 1.80 - 7.70 x10'3/uL 08/23/2019 8:08 PM [facility] ABS. LYMPHOCYTES 3.12 1.00 - 4.80 x10'3/uL 08/23/2019 8:08 PM [facility] ABS. MONOCYTES 0.86(H) 0.30 - 0.82 x10'3/uL 08/23/2019 8:08 PM [facility] ABS. EOSINOPHILS 0.35 0.04 - 0.54 x10'3/uL 08/23/2019 8:08 PM [facility] ABS. BASOPHILS 0.06 0.01 - 0.08 x10'3/uL 08/23/2019 8:08 PM [facility] ABS. IMMATURE GRANULOCYTES 0.03 0.00 - 0.49 x10'3/uL 08/23/2019 8:08 PM [facility] 08/23/2019 1:41 PM CONSERVATION BIOLOGY PROFESSOR us Kwesi Shipman DO LABORATORY Final Re sult [facility] [address] [place] [address], [place] [phone] documented in this encounter Visit Diagnoses Diagnosis Annual physical exam Routine general medical examination at a health care facility Screening for endocrine, metabolic and immunity disorder documented in this encounter Care Teams Store Team Member Relationship Specialty Start Date End Date Kwesi Shipman DO [address] [place] [id number] PCP - General FAMILY PRACTICE 08/08/19 documented as of this encounter
--- OUTSIDE RECORDS SUMMARY | 2024-10-23 17:48 | XMS_ITS | Encounter Summary ---
Author Organization [facility] Address [address] [place] [address]. 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 No / Unsure 04/03/2021 1:35 PM CDT documented as of this encounter Progress Notes * Sandra Tobar MA - 05/01/2021 11:16 AM CDT Patient notified and v/u . He will call back if he wants referral * Yanely Gutierrez RRT - 04/30/2021 11:18 AM CDT lmtrc * Kwesi Shipman DO - 04/29/2021 8:24 PM CDT Please let pt know we have the results of his CT scan of his abdomen and pelvis from 04/25/21. Onlynotable finding is a small umbilical hernia. If it is still causing him pain, he can talk to a surgeon about this. Referral okay if needed. documented in this encounter Plan of Treatment Not on file documented as of this encounter Visit Diagnoses Not on filedocumented in this encounter Additional Health Concerns Assessment Noted Time PHQ-9 Depression Total Score: 12 021 2:00 PM CDT documented as of this encounter Care Teams Attorney At Law Relationship Specialty Start Date End Date Kwesi Shipman DO [address] [place] [address] PCP - General FAMILY PRACTICE 08/08/19 documented as of this encounter
--- OUTSIDE RECORDS SUMMARY | 2024-10-23 17:48 | XMS_ITS | Encounter Summary ---
Author Organization [facility] Address [address] [place] [address]. [place] [address] Care Team Providers Care Technical Specialist Cytogenetics Name Role Phone Kwesi Shipman DO Primary Care Provider + Reason for Visit * Reason Comments MRI (SCAN) Encounter Details Date Type Department Care Team (Latest Contact Info) Description 10/07/2019 Scan HEALTH INFO [facility] Scanned, Documents MRI (SCAN) Social History Tobacco Use Types Packs/Day Years [...] on file documented as of this encounter Plan of Treatment Not on file documented as of this encounter Procedures Procedure Name Priority Date/Time Associated Diagnosis Comments MRI GENERIC Routine 10/07/2019 documented in this encounter Results * MRI (10/07/2019) Anatomical Region Laterality Modality Other us Documents Scanned SCANNING Edited Result - Final documented in this encounter Visit Diagnoses Not on filedocumented in this encounter Care Teams Technical Specialist Cytogenetics Relationship Specialty Start Date End Date Kwesi Shipman DO [address] [place] [id number] PCP - General FAMILY PRACTICE 08/08/19 documented as of this encounter
--- OUTSIDE RECORDS SUMMARY | 2024-10-23 17:48 | XMS_ITS | Encounter Summary ---
Author Organization [facility] Address [address] [place] [address]. [place] [address] Care Team Providers Care Poultry Dressing Worker Name Role Phone Kwesi Shipman DO Primary Care Provider + Reason for Visit * Reason Onset Date Comments Medication 11/07/2019 Encounter Details Date Type Department Care Team (Late st Contact Info) Description 11/07/2019 Telephone [facility] Medical Group Family & Internal Medicine [place] [address] [place] [phone] Kwesi Shipman DO [address] [place] [address] Medication Social History Tobacco Use Types Packs/Day Years [...] on file documented as of this encounter Progress Notes * Ritika Pablo RN - 11/09/2019 2:33 PM CST rx sent. PRINTER * Kwesi Shipman DO - 11/07/2019 3:47 PM CST As long as he will see psych in the future, we can do a refill of it for now. Can do 30 days of each with a refill. PRINTER * KOREY Dillon - 11/07/2019 3:21 PM CST Meant to go to you PRINTER * Norma Cifuentes MA - 11/07/2019 3:12 PM CST Requesting refill on Visteral 25mg 2 caps q 4 hours prn anxiety and Zyrpexa 5 mg qhs . [facility]. Mom is wanting to know if you are comfortable filling. States he will see psych as out patient. [facility] PRINTER documented in this encounter Plan of Treatment Not on file documented as of this encounter Visit Diagnoses Diagnosis Severe episode of recurrent major depressive disorder, without psychotic features ([facility]/H[facility]/HCC)- Primary documented in this encounter Care Teams Poultry Dressing Worker Relationship Specialty Start Date End Date Kwesi Shipman DO [address] [place] [address] PCP - General FAMILY PRACTICE 08/08/19 documented as of this encounter
--- OUTSIDE RECORDS SUMMARY | 2024-10-23 17:48 | XMS_ITS | Encounter Summary ---
Author Organization [facility] Address [address] [place] [address]. [place] [address] Care Team Providers Care Shipper/Receiver Name Role Phone Kwesi Shipman DO Primary Care Provider + Reason for Visit * Reason Onset Date Comments Medication Request 09/14/2019 Encounter Details Date Type Department Care Team (Late st Contact Info) Description 09/14/2019 Telephone [facility] Medical Group Family & Internal Medicine [place] [phone] [place] [address] Kwesi Shipman DO [address] [place], [place] [phone] Medication Request Social History Tobacco Use Types Packs/Day Years [...] as of this encounter Progress Notes * Norma Cifuentes MA - 09/20/2019 9:32 AM CSTAddended by: NORMA CIFUENTES on: 09/20/2019 09:32 AM Modules accepted: Orders USION OPERATOR * Norma Cifuentes MA - 09/20/2019 9:31 AM CST Patients mom informed of ok for MRI. MRI ordered for [place] per her request. tn USION OPERATOR * Ritika Pablo RN - 09/20/2019 8:59 AM CST LMTC 09/20/19 USION OPERATOR * Patsy Sepulveda MA - 09/19/2019 4:58 PM CST LM for pt. 09/19/19 USION OPERATOR * Kwesi Shipman DO - 09/15/2019 3:14 PM CST Pt's XR results were just read. Pt does show some narrowing at L5-S1 in disc space. OK to do MRI ofLumbar Spine w/o contrast. USION OPERATOR * Patsy Sepulveda MA - 09/14/2019 1:21 PM CST Spoke with pt's mother and she said that pt brought in XR's from chiropractor at time of OV. I think I may have over heard you talking to Debi about this patient or a different pt saying that X-raysfrom chiropractors are not exactly sufficient for insurance companies. I told pt's mother that pt will need to probably have additional imaging. She would like to know if/when orders will be placed in patients chart? What would you like me to order? USION OPERATOR * Kwesi Shipman DO - 09/14/2019 12:52 PM CST OK to fill cyclobenzaprine. I don't believe pt has obtained XRs yet, so can't even consider an MRI until those are obtained. If pt has had any other imaging, it would be helpful to request this as well as I don't see any in our previous records from this previous doc. Please relay this information to the patient himself. USION OPERATOR * Ronda Schaffer - 09/14/2019 12:41 PM CST Pt mother calling in for muscle relaxer needs refilled. Pt mother also asking MRI orders to see what is actually wrong with his back. USION OPERATOR documented in this encounter Plan of Treatment Not on file documented as of this encounter Visit Diagnoses Diagnosis Chronic bilateral low back pain without sciatica- Primary documented in this encounter Care Teams Shipper/Receiver Relationship Specialty Start Date End Date Kwesi Shipman DO [address] [place] [phone] PCP - General FAMILY PRACTICE 08/08/19 documented as of this encounter
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
--- OUTSIDE RECORDS SUMMARY | 2024-10-23 17:48 | XMS_ITS | Encounter Summary ---
Author Organization [facility] Address [address] [place] [address]. [place] [address] Care Team Providers Care Clerical Warehouseman Name Role Phone Kwesi Shipman DO Primary Care Provider + Encounter Details Date Type Department Care Team (Latest Contact Info) Description 12/14/2019 Travel Social History Tobacco Use Types Packs/Day [...] on filedocumented in this encounter Care Teams Clerical Warehouseman Relationship Specialty Start Date End Date Kwesi Shipman DO [address] [place] [id number] PCP - General FAMILY PRACTICE 08/08/19 documented as of this encounter
--- OUTSIDE RECORDS SUMMARY | 2024-10-23 17:48 | XMS_ITS | Encounter Summary ---
Author Organization [facility] Address [address] [place] [address]. [place] [address] Care Team Providers Care Casket Assembler Name Role Phone Kwesi Shipman DO Primary Care Provider + Encounter Details Date Type Department Care Team (Latest Contact Info) Description 08/08/2019 Scan HEALTH INFO [facility] Scanned, Documents Social History Tobacco Use Types Packs/Day Years [...] on filedocumented in this encounter Care Teams Casket Assembler Relationship Specialty Start Date End Date Kwesi Shipman DO [address] [place], [place] [phone] PCP - General FAMILY PRACTICE 08/08/19 documented as of this encounter
--- OUTSIDE RECORDS SUMMARY | 2024-10-23 17:48 | XMS_ITS | Encounter Summary ---
Author Organization [facility] Address [address] [place] [address]. [place], [place] [phone] [place], [place] [id number] Care Team Providers Care Donor Services Technician Name Role Phone Mahnaz Shipmanchary Dayami HURTADO Primary Care Provider + Encounter Details Date Type Department Care Team (Late st Contact Info) Description 04/16/2020 Orders Only [facility] Medical Group Multispecialty Care - [address], [address] [place] [address] Whit Daniels RN Social History Tobacco Use Types Packs/Day Years [...] have Coronavirus / COVID-19? No / Unsure 04/16/2020 3:03 PM CDT documented as of this encounter Plan of Treatment Not on file documented as of this encounter Visit Diagnoses Not on filedocumented in this encounter Care Teams Donor Services Technician Relationship Specialty Start Date End Date Kwesi Shipman DO [address] [place] [address] PCP - General FAMILY PRACTICE 08/08/19 documented as of this encounter
--- OUTSIDE RECORDS SUMMARY | 2024-10-23 17:48 | XMS_ITS | Encounter Summary ---
Author Organization [facility] Address [address] [place] [address]. 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 No / Unsure 04/03/2021 1:35 PM CDT documented as of this encounter Progress Notes * Lorena Carrillo MA - 04/29/2021 1:22 PM CDT Pt v/u to labs. BB 04/29/2021 * Sandra Tobar MA - 04/12/2021 9:27 AM CDT [facility] 04/12/21. Contact letter sent * Sandra Tobar MA - 04/11/2021 2:57 PM CDT [facility] 04/11/21 * Norma Cifuentes MA - 04/10/2021 12:34 PM CDT 04/10/21 tn * Norma Cifuentes MA - 04/10/2021 12:33 PM CDT ----- Message from Kwesi Shipman DO sent at 04/09/2021 7:52 PM CDT ----- Labs are mostly unremarkable except for one of his blood tests showed elevated hematocrit. This is likely incidental and transient; will recheck at future OV in 3-6 months. Otherwise labs look okay and can be repeated in 1 year or sooner if needed. documented in this encounter Plan of Treatment Not on file documented as of this encounter Visit Diagnoses Not on filedocumented in this encounter Additional Health Concerns Assessment Noted Time PHQ-9 Depression Total Score: 12 021 2:00 PM CDT documented as of this encounter Care Teams Welt Pocket Machine Operator Relationship Specialty Start Date End Date Kwesi Shipman DO [address] [place] [id number] PCP - General FAMILY PRACTICE 08/08/19 documented as of this encounter
--- OUTSIDE RECORDS SUMMARY | 2024-10-23 17:48 | XMS_ITS | Encounter Summary ---
Author Organization [facility] Address [address] [place] [address]. [place] [address] Care Team Providers Care Acquisition Manager Name Role Phone Kwesi Shipman DO Primary Care Provider + Reason for Visit * Reason Onset Date Comments Psychiatric Problem 10/19/2019 Encounter Details Date Type Department Care Team (Late st Contact Info) Description 10/19/2019 Telephone [facility] Medical Group Family & Internal Medicine [phone] [place] [phone] Kwesi Shipman DO [address] [place] [address] Psychiatric Problem Social History Tobacco Use Types Packs/Day Years [...] as of this encounter Progress Notes * Kwesi Shipman DO - 10/20/2019 10:30 AM CST Thank you for the update. ING MACHINE TENDER * Norma Cifuentes MA - 10/20/2019 10:24 AM CST Patient went to [facility] yesterday and was admitted to [facility] in [place] today per Laura (mom) ING MACHINE TENDER * Radha Sánchez MA - 10/19/2019 3:01 PM CST Patient's mother informed and v/u. She is wanting to wait until tomorrow to take patient to inpatient facility that is accepted by her insurance. The patient also is agreeable to be placed inpatient tomorrow. I did explain that it would be better to have patient take to have care today, with his suicide ideation he needs 24 hour watch for safety an this is easier to be done inpatient. She is still going to wait until tomorrow because patient is willing to be treated tomorrow. She will give us an update tomorrow. ING MACHINE TENDER * Kwesi Shipman DO - 10/19/2019 8:25 AM CST I would actually recommend ER evaluation today given that description. ING MACHINE TENDER * Ronda Schaffer - 10/19/2019 8:20 AM CST Patients mother came in to the office to ask about rehab facilitations she could have Jj check himself into. She said last night he was drinking a lot and started mentioning taking his own life, drinking bleach, he was hitting his head against a window. She said he has been talking suicidally fora while now and she is getting worn out and needs him to check in somewhere. I gave her a flier for [facility] rehab center and a phone number to call [facility]. Her goal is to get him checkedin somewhere today so that he can get the help he needs. ING MACHINE TENDER documented in this encounter Plan of Treatment Not on file documented as of this encounter Visit Diagnoses Not on filedocumented in this encounter Care Teams Acquisition Manager Relationship Specialty Start Date End Date Kwesi Shipman DO [address] [place] [id number] PCP - General FAMILY PRACTICE 08/08/19 documented as of this encounter
--- OUTSIDE RECORDS SUMMARY | 2024-10-23 17:48 | XMS_ITS | Encounter Summary ---
Author Organization [facility] Address [address] [place] [address]. [place] [address] Care Team Providers Care Medical Librarian Name Role Phone Kwesi Shipman DO Primary Care Provider + Reason for Referral * Surgical (Routine) - Closed Specialty Diagnoses / Procedures Referred By Jamison t Referred To Contact HAND SURGERY / ORTHOPAEDICS Diagnoses Carpal tunnel syndrome of right wrist Kwesi Shipman DO [address] [place] [address] Phone: tel: fax: Iain Mcdonald MD Phone: tel: fax: Referral ID Status Reason Start Date Expiration Date Visits Re quested Visits Authorized [id number] Closed 02/14/2020 03/15/2021 99 99 Reason for Visit * Reason Comments Depression Encounter Details Date Type Department Care Team (Late st Contact Info) Description 02/14/2020 10:20 AM CDT Telemedicine [facility] Medical Group Family & Internal Medicine [facility] [address] [place] [phone] Kwesi Shipman DO [address] [place], [place] [phone] Depression Social History Tobacco Use Types Packs/Day Years [...] or suspected to have Coronavirus / COVID-19? Unable to assess 02/14/2020 9:44 AM CDT documented as of this encounter Progress Notes * Kwesi Shipman, - 02/14/2020 10:20 AM CDT Images from the original note were not included. GENERAL OFFICE VISIT Encounter Date: 02/14/2020 I introduced and identified myself, received verbal consent from the patient to proceed with this video visit and made the patient aware that the same confidentiality and information writer practices apply. The patient joined the video visit from Home. I completed the virtual visit from Office. The following clinical staff helped with this visit MA: Sandra Tobar. Total Time Spent in Minutes: 10 Chief Complaint: 24-year-old male presents for Depression HPI: Pt has some numbness on the right hand. He notes some numbness/tingling with it. He notes it is worse with more movement. He hasn't taken any medicines or anything. Pt is doing well with back pain on cyclobenzaprine. No acute changes at this time. He wanted to ensure this would be refilled during my temporary leave for paternity leave. Pt is still following with psychiatry. He is not taking prazosin at this time; no change in symptoms since last evaluation. Review of Systems Constitutional: Negative for fever. Respiratory: Negative for cough and shortness of breath. Psychiatric/Behavioral: See HPI Patient Active Problem List Diagnosis ??? Severe episode of recurrent major depressive disorder, without psychotic features (CMS/HCC) ??? Chronic bilateral low back pain without sciatica ??? Vitamin D deficiency ??? Carpal tunnel syndrome of right wrist Past Medical History: Diagnosis Date ??? ADD [...] level: Not on file Occupational History ??? Not on file Social Needs ??? Financial resource strain: Not on file ??? Food insecurity: Worry: Not on file Inability: Not on file ??? Transportation needs: Medical: Not on file Non-medical: Not on file Tobacco Use ??? Smoking status: Former Smoker Packs/day: 0.50 Years: 5.00 Pack years: 2.50 Types: Cigarettes Last attempt to quit: 06/08/2019 Years since quittin.6 ??? Smokeless tobacco: Never Used Substance and Sexual Activity ??? Alcohol use: No Frequency: Never ??? Drug use: Yes Frequency: 7.0 times per week Types: Marijuana ??? Sexual activity: Not on file Lifestyle ??? Physical activity: Days per week: Not on file Minutes per session: Not on file ??? Stress: Not on file Relationships ??? Social connections: Talks on phone: Not on file Gets together: Not on file Attends jew service: Not on file Active member of club or organization: Not on file Attends meetings of clubs or organizations: Not on file Relationship status: Not on file ??? Intimate partner violence: Fear of current or ex partner: Not on file Emotionally abused: Not on file Physically abused: Not on file Forced sexual activity: Not on file Other Topics Concern ??? Not on file Social History Narrative ??? Not on file There is no immunization history on file for this patient. Current Outpatient Medications Medication Sig Dispense Refill ??? CYCLOBENZAPRINE 10 MG tablet TAKE 1 TABLET BY MOUTH THREE TIMES DAILY NEEDED FOR MUSCLE SPASMS 30 tablet 0 ??? duloxetine 30 MG capsule Take 1 capsule (30 mg total) by mouth daily. 90 capsule 1 ??? hydrOXYzine 50 MG tablet TK 1 TO 2 TS PO Q 8 H PRF ANXIETY ??? OLANZapine (ZYPREXA) 5 MG tablet Take 1 tablet (5 mg total) by mouth nightly at bedtime. 30 tablet 0 ??? triamcinolone 0.1 % cream Apply topically 2 (two) times daily. 45 g 1 No current facility-administered medications for this visit. Current Outpatient Medications on File Prior to Visit Medication Sig ??? CYCLOBENZAPRINE 10 MG tablet TAKE 1 TABLET BY MOUTH THREE TIMES DAILY NEEDED FOR MUSCLE SPASMS ??? duloxetine 30 MG capsule Take 1 capsule (30 mg total) by mouth daily. ??? hydrOXYzine 50 MG tablet TK 1 TO 2 TS PO Q 8 H PRF ANXIETY ??? OLANZapine (ZYPREXA) 5 MG tablet Take 1 tablet (5 mg total) by mouth nightly at bedtime. ??? triamcinolone 0.1 % cream Apply topically 2 (two) times daily. No current facility-administered medications on file prior to visit. No Known Allergies Objective: As this is a virtual visit, no formal vitals are able to be obtained. No home vitals or testing device readings are relevant to this visit. Physical Exam Constitutional: He is oriented to person, place, and time and well-developed, well-nourished, and in no distress. HENT: Head: Normocephalic and atraumatic. Right Ear: External ear normal. Left Ear: External ear normal. Eyes: Conjunctivae are normal. No scleral icterus. Pulmonary/Chest: Effort normal. Neurological: He is alert and oriented to person, place, and time. Tinel's sign positive right Skin: Skin is warm and dry. No rash noted. Psychiatric: Mood and affect normal. Assessment & Plan: Kwesi was seen today for depression. Diagnoses and all orders for this visit: Severe episode of recurrent major depressive disorder, without psychotic features (CMS/HCC) Carpal tunnel syndrome of right wrist - AMB REFERRAL TO HAND SURGERY Chronic bilateral low back pain without sciatica Discussion/Summary: Recommend splint at night and NSAID therapy initially; suspect pt will need to corticosteroid injection, so will send to hand specialist to do so. Continue medications as prescribed otherwise. Will have pt f/u in 3- 6 months. Pt v/u. Kwesi Shipman, DO documented in this encounter Plan of Treatment Scheduled Referrals Name Type Priority Associated Diagnoses Orde r Schedule Ambulatory referral to Hand Surgery Referral Routine Carpal tunnel syndrome of right wrist Ordered: 02/14/2020 documented as of this encounter Visit Diagnoses Diagnosis Severe episode of recurrent major depressive disorder, without psychotic features (CMS/HCC HHS/HCC)- Primary Carpal tunnel syndrome of right wrist Carpal tunnel syndrome Chronic bilateral low back pain without sciatica documented in this encounter Care Teams Medical Librarian Relationship Specialty Start Date End Date Kwesi Shipman DO [address] [place] [id number] PCP - General FAMILY PRACTICE 08/08/19 documented as of this encounter
--- OUTSIDE RECORDS SUMMARY | 2024-10-23 17:48 | XMS_ITS | Encounter Summary ---
Author Organization [facility] Address [address] [place] [address]. [place] [address] Care Team Providers Care Director Industrial Relations Name Role Phone Kwesi Shipman DO Primary Care Provider + Reason for Visit * Reason Comments Follow Up pt feels like medica tion is helping Encounter Details Date Type Department Care Team (Late st Contact Info) Description 09/12/2019 8:40 AM MECHANOTHERAPIST Office Visit [facility] Family & Internal Medicine [id number] [place] [address] Kwesi Shipman DO [address] [place] [address] [id number] Follow Up (pt feels like medication is helping ) Social History Tobacco Use Types Packs/Day [...] on file documented as of this encounter Last Filed Vital Signs Vital Sign Reading Time Taken Comments Blood Pressure 108/60 09/12/2019 8:50 AM MECHANOTHERAPIST Pulse 65 09/12/2019 8:50 AM MECHANOTHERAPIST Temperature 36.8 ??C (98.2 ??F) 09/12/2019 8:50 AM CS T Respiratory Rate 16 09/12/2019 8:50 AM MECHANOTHERAPIST Oxygen Saturation 97% 09/12/2019 8:50 AM MECHANOTHERAPIST Inhaled Oxygen Concentration - - Weight 105.8 kg (233 lb 3 oz) 09/12/2019 8:50 AM MECHANOTHERAPIST Height 172.7 cm (5' 8 ) 09/12/2019 8:50 AM MECHANOTHERAPIST Body Mass Index 35.46 09/12/2019 8:50 AM MECHANOTHERAPIST documented in this encounter Progress Notes * Kwesi Shipman, DO - 09/12/2019 8:40 AM CST Images from the original note were not included. GENERAL OFFICE VISIT Encounter Date: 09/12/2019 Chief Complaint: 24-year-old male presents for Follow Up (pt feels like medication is helping ) HPI: Pt presents for follow-up. We started pt on cymbalta at most recent visit. He isn't freaking out as much with stuff. He feels his symptoms are adequately controlled at this time. He is unsure how much is benefiting his back, but he does note significant improvement in his mood. His lab works cameback mostly okay outside of his low Vitamin D. No acute symptomatology today. Review of Systems Constitutional: Negative for fever. Respiratory: Negative for shortness of breath. Cardiovascular: Negative for chest pain. Musculoskeletal: Better controlled Psychiatric/Behavioral: See HPI Patient Active Problem List Diagnosis ??? Severe episode of recurrent major depressive disorder, without psychotic features (CMS/HCC) ??? Chronic bilateral low back pain without sciatica ??? Vitamin D deficiency Past Medical History: Diagnosis Date ??? ADD [...] Last attempt to quit: 06/08/2019 Years since quittin.2 ??? Smokeless tobacco: Never Used Substance and [...] file Gets together: Not on file Attends mandaeism service: Not on file Active member of [...] Outpatient Medications Medication Sig Dispense Refill ??? duloxetine 30 MG capsule Take 1 capsule (30 mg total) by mouth daily. 90 capsule 1 No current facility-administered medications for this visit. No current outpatient medications on file prior to visit. No current facility-administered medications on file prior to visit. No Known Allergies Objective: Filed Vitals: 09/12/19 0850 BP: 108/60 Pulse: 65 Resp: 16 Temp: 98.2 ??F (36.8 ??C) SpO2: 97% Weight: 105.8 kg (233 lb 3 oz) Height: 5' 8 (1.727 m) Physical Exam Constitutional: He is well-developed, well-nourished, and in no distress. HENT: Head: Normocephalic and atraumatic. Right Ear: External ear normal. Left Ear: External ear normal. Eyes: Conjunctivae are normal. Cardiovascular: Normal rate, regular rhythm and normal heart sounds. Exam reveals no gallop and no friction rub. No murmur heard. Pulmonary/Chest: Effort normal and breath sounds normal. No respiratory distress. He has no wheezes. He has no rales. Abdominal: Soft. Bowel sounds are normal. There is no tenderness. Nursing note and vitals reviewed. Assessment & Plan: Kwesi was seen today for follow up. Diagnoses and all orders for this visit: Severe episode of recurrent major depressive disorder, without psychotic features (CMS/HCC) - duloxetine 30 MG capsule; Take 1 capsule (30 mg total) by mouth daily. Chronic bilateral low back pain without sciatica Vitamin D deficiency Discussion/Summary: We will keep patient on Cymbalta 30 mg based upon his improvement in symptoms and wishes. Will havepatient follow-up in 3 to 6 months for reassessment of this. Continue other medications as prescribed. Will recheck vitamin D at next evaluation. Patient verbalized understanding. Kwesi Shipman DO ANOTHERAPIST documented in this encounter Plan of Treatment Not on file documented as of this encounter Visit Diagnoses Diagnosis Severe episode of recurrent major depressive disorder, without psychotic features (CMS/HCC HHS/HCC)- Primary Chronic bilateral low back pain without sciatica Vitamin D deficiency Unspecified vitamin D deficiency documented in this encounter Care Teams Director Industrial Relations Relationship Specialty Start Date End Date Kwesi Shipman DO [address] [place] [address] PCP - General FAMILY PRACTICE 08/08/19 documented as of this encounter
--- OUTSIDE RECORDS SUMMARY | 2024-10-23 17:48 | XMS_ITS | Encounter Summary ---
Author Organization [facility] Address [address] [place] [address]. [place], [place] [id number] [place] [address] Care Team Providers Care Chocolate Coater Name Role Phone Kwesi Shipman DO Primary Care Provider + Encounter Details Date Type Department Care Team (Latest Contact Info) Description 04/16/2020 Travel Social History Tobacco Use Types Packs/Day [...] on filedocumented in this encounter Care Teams Chocolate Coater Relationship Specialty Start Date End Date Kwesi Shipman DO [address] [place] [address] PCP - General FAMILY PRACTICE 08/08/19 documented as of this encounter
--- OUTSIDE RECORDS SUMMARY | 2024-10-23 17:48 | XMS_ITS | Encounter Summary ---
Author Organization [facility] Address [address] [place] [address]. [place] [id number] [place], [place] [id number] Care Team Providers Care Plastic Bubble Packer Name Role Phone Kwesi Shipman DO Primary Care Provider + Reason for Referral * Consultation/Treatment (Routine) - Closed Specialty Diagnoses / Procedures Referred By Contac t Referred To Contact PAIN MANAGEMENT Diagnoses Chronic bilateral low back pain without sciatica Abnormal MRI, lumbar spine Kwesi Shipman DO [address] [place] [address] Phone: tel: fax: [address] [address] Phone: tel: fax: Referral ID Status Reason Start Date Expiration Date V isits Requested Visits Authorized [id number] Closed Specialty Services 10/20/2019 11/20/2020 100 100 PING HELPER Reason for Visit * Reason Onset Date Comments Referral Request 10/19/2019 Encounter Details Date Type Department Care Team (Late st Contact Info) Description 10/19/2019 Telephone [facility] Medical Group Family & Internal Medicine - [place] [address] [place] [address] Kwesi Shipman DO [address], [place] [phone] Referral Request Social History Tobacco Use Types Packs/Day [...] Progress Notes * Ritika Pablo RN - 10/20/2019 9:05 AM CST Referral entered PING HELPER * Ronda Schaffer - 10/19/2019 8:12 AM CST Patients mother came in to switch his pain management referral. They don't want to go to [facility] because its too far. They would like us to switch to the pain management place in [place]. So cancel the original referral and re do a referral for [place] location. PING HELPER documented in this encounter Plan of Treatment Scheduled Referrals Name Type Priority Associated Diagnoses Orde r Schedule Ambulatory Referral to Pain Management Referral Routine Chronic bilateral low back pain without sciatica Abnormal MRI, lumbar spine Ordered: 10/20/2019 documented as of this encounter Visit Diagnoses Diagnosis Chronic bilateral low back pain without sciatica- Primary Abnormal MRI, lumbar spine Nonspecific (abnormal) findings on radiological and other examination of musculoskeletal system documented in this encounter Care Teams Plastic Bubble Packer Relationship Specialty Start Date End Date Kwesi Shipman DO [address] [place] [address] PCP - General FAMILY PRACTICE 08/08/19 documented as of this encounter
--- OUTSIDE RECORDS SUMMARY | 2024-10-23 17:48 | XMS_ITS | Encounter Summary ---
Author Organization [facility] Address [address] [place] [address]. [place] [address] Care Team Providers Care Biology Specimen Technician Name Role Phone Kwesi Shipman DO Primary Care Provider + Reason for Visit * Reason Onset Date Comments Prior Authorization 01/05/2023 Encounter Details Date Type Department Care Team (Late st Contact Info) Description 01/05/[address] 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 No / Unsure 12/29/2022 12:26 PM CDT documented as of this encounter Progress Notes * Luz Rodriguez MA - 01/05/2023 4:07 PM CDT Have you rcvd the request? * Yuli Barbosa - 01/05/2023 2:53 PM CDT Patient is needing a PA on the Sertaline. documented in this encounter Plan of Treatment Not on file documented as of this encounter Visit Diagnoses Diagnosis Severe episode of recurrent major depressive disorder, without psychotic features (CMS/HCC HHS/HCC) documented in this encounter Additional Health Concerns Assessment Noted Time PHQ-9 Depression Total Score: 12 021 2:00 PM CDT documented as of this encounter Care Teams Biology Specimen Technician Relationship Specialty Start Date End Date Kwesi Shipman DO [address] [place] [address] PCP - General FAMILY PRACTICE 08/08/19 documented as of this encounter
--- OUTSIDE RECORDS SUMMARY | 2024-10-23 17:48 | XMS_ITS | Encounter Summary ---
Author Organization [facility] Address [address] [place] [address]. [place] [address] Care Team Providers Care Corrections Unit Supervisor Name Role Phone Kwesi Shipman DO Primary Care Provider + Reason for Visit * Reason Onset Date Comments Medication Problem 01/21/2023 Encounter Details Date Type Department Care Team (Late st Contact Info) Description 01/21/2023 Telephone [facility] Medical Group Family & Internal Medicine [phone] [place] [address] Kwesi Shipman DO 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 No / Unsure 01/14/2023 7:45 AM CDT documented as of this encounter Progress Notes * Luz Rodriguez MA - 01/22/2023 10:14 AM CDT Spoke with patient's and advised her of the previous message. She states the pharmacy needs ed switched to [facility]. Informed her of lab results. Informed patient's spouse if they have anymore concerns to contact the pharmacy or our office. She v/u * Belle Baxter - 01/22/2023 9:19 AM CDT Pt. Called about labs and medication. Labs were relayed to the pt. But he is still not clear on hismedication and would like a call back. * Kwesi Shipman DO - 01/22/2023 7:44 AM CDT Pt should only be on sertraline. We stopped Lexapro. * Sandra Tobar MA - 01/21/2023 5:12 PM CDT Should patient be on escitalopram and sertraline? If so Molia is requiring documentation and rationale. documented in this encounter Plan of Treatment Not on file documented as of this encounter Visit Diagnoses Not on filedocumented in this encounter Additional Health Concerns Assessment Noted Time PHQ-9 Depression Total Score: 12 04/03/ 021 2:00 PM CDT documented as of this encounter Care Teams Corrections Unit Supervisor Relationship Specialty Start Date End Date Kwesi Shipman DO [address] [place] [id number] PCP - General FAMILY PRACTICE 08/08/19 documented as of this encounter
--- OUTSIDE RECORDS SUMMARY | 2024-10-23 17:48 | XMS_ITS | Encounter Summary ---
Author Organization [facility] Address [address] [place] [address]. [place] [address] Care Team Providers Care Decorating Equipment Setter Name Role Phone Kwesi Shipman DO Primary Care Provider + Reason for Visit * Reason Onset Date Comments Information 02/16/2020 Encounter Details Date Type Department Care Team (Late st Contact Info) Description 02/16/2020 Telephone [facility] Medical Group Family & Internal Medicine [phone] [place] [address] Kwesi Shipman DO [address] [place], [place] [phone] Information Social History Tobacco Use Types Packs/Day Years [...] Progress Notes * Sandra Tobar MA - 02/16/2020 2:50 PM CDT Patient notified and v/u * Norma Cifuentes MA - 02/16/2020 11:36 AM CDT LM 02/16/20, see other task tn * Kwesi Shipman DO - 02/16/2020 11:08 AM CDT The repetitiveness of these activities may be part of his issue; recommend reducing these activities. There is also a lab result that should be relayed to patient; please do so. * Norma Cifuentes MA - 02/16/2020 10:43 AM CDT Patients mom called to let you know that he was putting tiles down on a floor prior to his hand swelling. She wasn't sure that he gave you this information. documented in this encounter Plan of Treatment Not on file documented as of this encounter Visit Diagnoses Not on filedocumented in this encounter Care Teams Decorating Equipment Setter Relationship Specialty Start Date End Date Kwesi Shipman DO [address] [place] [id number] PCP - General FAMILY PRACTICE 08/08/19 documented as of this encounter
--- OUTSIDE RECORDS SUMMARY | 2024-10-23 17:48 | XMS_ITS | Clinical Summary ---
Author Organization [facility] Address [address] [place] [address]. [place] [address] Care Team Providers Care Electrical Installation Supervisor Name Role Phone Ramonita Kwesi Stock DO Primary Care Provider + Allergies No known active allergies Medications triamcinolone (KENALOG) 0.1 % creamIndications :Rash APPLY TOPICALLY TO THE AFFECTED AREA TWICE DAILY 45 g 2 Active Multiple Vitamins-Mineral s (MULTIVITAL OR) Active sertraline (ZOLOFT) 50 MG tabletIndication s:Severe episode of recurrent major depressive disorder, without psychotic features ([facility]/HCC HHS/[facility]) Take 1 tablet (50 mg total) by mouth daily. 90 tablet 2 3 Active azithromycin (ZITHROMAX) 250 MG tabletIndication s:Upper respiratory tract infection, unspecified type Take 2 tabs daily for one day, then take 1 tab daily 6 tablet 4 Active Active Problems Problem Noted Date Diagnosed Date Hemorrhoids, unspecified hemorrhoid type 020 Carpal tunnel syndrome of right wrist 02/14/2020 Severe episode of recurrent major depressive disorder, without psychotic features (CMS/HCC HHS/HCC) 09/12/2019 Chronic bilateral low back pain without sciatica 09/12/2019 Vitamin D deficiency 09/12/2019 Immunizations Name Administration Dates Next Due Dtap 07/11/1997 Dtp 1996,1996,1996 HPV4 (Gardasil) 10/27/2011,06/26/2011,04/18/2011 Hepatitis B Pediatric 1996,1996,1996 Hib 07/11/1997,1996,1996 ,1996 Influenza Adult (Generic) 06/26/2011 MMR 07/11/1997 Opv 1996,1996,1996 Varicella Vaccine 04/18/2011,03/15/1997 Family History Medical History Relation Comments Hypertension Mother Relation Status Comments Father Mother Alive Social History Tobacco Use Types Packs/Day Years [...] on file 07/13 PHQ-2 Answer Date Recorded Patient Health Questionnaire-2 Score 0 03/13/2023 Sex and Gender Information Value Date Recorded Sex Assigned at Not on file Legal Sex Male 9:05 AM CDT Gender Identity Not on file Sexual Orientation Not on file 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 Not on file 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 Not on file Not on file Last Filed Vital Signs Vital Sign Reading Time Taken Comments Blood Pressure 108/76 02/09/2024 10:14 AM CDT Pulse 77 02/09/2024 10:14 AM CDT Temperature 36.2 ??C (97.2 ??F) 02/09/2024 10:14 AM C DT Respiratory Rate 16 02/09/2024 10:14 AM CDT Oxygen Saturation 97% 02/09/2024 10:14 AM CDT Inhaled Oxygen Concentration - - Weight 86.7 kg (191 lb 3.2 oz) 02/09/2024 10:14 AM CDT Height 172.7 cm (5' 8 ) 02/09/2024 10:14 AM CDT Body Mass Index 29.07 02/09/2024 10:14 AM CDT Plan of Treatment Health Maintenance Due Date Last Done Comments DTaP, Tdap and Td Vaccines (2 - Tdap) 2015 07/11/1997, 1996, 1996, Additional history exists Annual Physical 12/12/2023 12/11/2022 COVID-19 Vaccine ( season) 2024 Influenza Adult (#1) 2024 06/26/2011 Hepatitis B Vaccines Completed 1996, 1996, 1996 HPV Vaccines Completed 10/27/2011, 06/12, 04/18/2011 Hepatitis C Completed 12/18/2022 Meningococcal Vaccine Aged Out No krista charli eligible based on patient's age to complete this topic Pneumococcal Vaccine: Pediatrics (0 to 5 Years) and At-Risk Patients (6 to 64 Years) Aged Out No longer eligible based on patient's age to complete this topic RSV Immunizations Under 20 Months Aged Out No longer eligible based on patient's age to complete this topic Procedures Procedure Name Priority Date/Time Associated Diagnosis Comments HEPATITIS C ANTIBODY Routine 12/18/2022 9:09 AM SVP OF DIGITAL Need for hepatitis C screening test from Last 3 Months or Most Recently Relevant to Health Maintenance Results * HEPATITIS C ANTIBODY ([facility] ONLY) (12/18/2022 9:09 AM SVP OF DIGITAL) HEPATITIS C AB NON-REACTI VE NON-REACT HIRO 12/18/2022 6:20 PM SVP OF DIGITAL [facility] Comment: ANTIBODIES TO HCV NOT DETECTED. DOES NOT EXCLUDE THE POSSIBILITY OF EXPOSURE TO HCV. 12/18/2022 9:09 AM SVP OF DIGITAL Kwesi Shipman DO LABORATORY Final Re sult [facility] [address] [place] [address], [place] [phone] [id number] from Last 3 Months or Most Recently Relevant to Health Maintenance [id number] Care Teams Electrical Installation Supervisor Relationship Specialty Start Date End Date Kwesi Shipman DO [facility] [place] [address] PCP - General FAMILY PRACTICE 08/08/19
--- OUTSIDE RECORDS SUMMARY | 2024-10-23 17:48 | XMS_ITS | Encounter Summary ---
Author Organization [facility] Address [address] [place] [address]. 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 No / Unsure 12/18/2022 8:53 AM PRINCIPAL PRODUCT MANAGER documented as of this encounter Plan of Treatment Not on file documented as of this encounter Visit Diagnoses Not on filedocumented in this encounter Additional Health Concerns Assessment Noted Time PHQ-9 Depression Total Score: 12 021 2:00 PM CDT documented as of this encounter Care Teams Differential Specialist Relationship Specialty Start Date End Date Kwesi Shipman DO [address] [place] [address] PCP - General FAMILY PRACTICE 08/08/19 documented as of this encounter
--- OUTSIDE RECORDS SUMMARY | 2024-10-23 17:48 | XMS_ITS | Encounter Summary ---
Author Organization [facility] Address [address] [place] [address]. [place] [address] Care Team Providers Care Client Account Manager Name Role Phone Kwesi Shipman DO Primary Care Provider + Reason for Referral * Consultation/Treatment (Routine) - Pending Review Specialty Diagnoses / Procedures Referred By Jamison vegas Referred To Contact GENERAL SURGERY / SURGERY Diagnoses Non-recurrent abdominal hernia without obstruction or gangrene, unspecified hernia type Procedures OFFICE/OUTPATIENT NEW LOW MDM 30-44 MINUTES OFFICE/OUTPT VISIT,NEW,LEVL IV OFFICE/OUTPT VISIT,NEW,LEVL V OFFICE/OUTPT VISIT,EST,LEVL III OFFICE/OUTPT VISIT,EST,LEVL IV OFFICE/OUTPT VISIT,EST,LEVL V Kwesi Shipman DO [address] [place] [address] Phone: tel: fax: [facility] Medical Group General Surgery [address], [address] [address] Phone: tel: fax: Referral ID Status Reason Start Date Expiration Date V isits Requested Visits Authorized [id number] Pending Review 02/09/2024 03/12/2025 99 99 Reason for Visit * Reason Comments Cough Patient states he is having some chest discomfort from coughing. Patient states he has tried OTC with no relief Hernia Encounter Details Date Type Department Care Team (Late st Contact Info) Description 02/09/2024 10:00 AM CDT Office Visit [facility] Medical Group Family & Internal Medicine [address] [phone] Mahnaz Shipmanbreanne Stock, [address] [place] [address] Cough (Patient states he is having some chest discomfort from coughing. 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 GENERAL OFFICE VISIT Encounter Date: 02/09/2024 Chief Complaint: 28-year-old male presents for Cough (Patient states he is having some chest discomfort from coughing. Patient states he has tried OTC with no relief) and Hernia HPI: Pt presents for hernia and cough. Pt is unsure of the duration. It is in his abdomen. There is painassociated with this. He notes if he does more physical labor, he will notice the hernia more and will cause pain. Pt has no previous surgery in the abdomen. Pt has noted cough; he isn't sure of the duration. He notes he does have seasonal allergies but is worried about infection. Review of Systems Constitutional: Negative for fever. Respiratory: Negative for shortness of breath. Cardiovascular: Negative for chest pain. Genitourinary: See HPI Musculoskeletal: See HPI Patient Active Problem List Diagnosis Severe episode of recurrent major depressive disorder, without psychotic features (CMS/HCC HHS/HCC) Chronic bilateral low back pain without sciatica Vitamin D deficiency Carpal tunnel syndrome of right wrist Hemorrhoids, unspecified hemorrhoid type Past Medical History: Diagnosis Date ADD (attention deficit disorder) Anxiety Depression Past Surgical History: Procedure Laterality Date HAND SURGERY right hand TONSILLECTOMY Family History Problem Relation Name Age of Onset Hypertension Mother Social History Socioeconomic History Marital status: Spouse name: Not on file Number of children: Not on file Years of education: Not on file Highest education level: Not on file Occupational History 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 Tobacco Use Smoking status: Former Current packs/day: 0.00 Average packs/day: 0.5 packs/day for 5.0 years (2.5 ttl pk-yrs) Types: Cigarettes Start date: 06/08/2014 Quit date: 06/08/2019 Years since quittin.6 Smokeless tobacco: Never Vaping Use Vaping status: Never Used Substance and Sexual Activity Alcohol use: No Drug use: Yes Frequency: 7.0 times per week Types: Marijuana Sexual activity: Not on file Other Topics Concern Not on file Social History Narrative Not on file Social Determinants of Health Financial Resource Strain: Not on file Food Insecurity: Not on file Transportation Needs: Not on file Physical Activity: Not on file Stress: Not on file Social Connections: Not on file Intimate Partner Violence: Not on file Housing Stability: Not on file Immunization History Administered Date(s) Administered Dtap 07/11/1997 Dtp 1996, 1996, 1996 HPV4 (Gardasil) 04/18/2011, 06/26/2011, 10/27/2011 Hepatitis B Pediatric 1996, 1996, 1996 Hib 1996, 1996, 1996, 07/11/1997 Influenza Adult (Generic) 06/26/2011 MMR 07/11/1997 Opv 1996, 1996, 1996 Varicella Vaccine 03/15/1997, 04/18/2011 Current Outpatient Medications Medication Sig Dispense Refill azithromycin (ZITHROMAX) 250 MG tablet Take 2 tabs daily for one day, then take 1 tab daily 6 tablet 0 benzonatate (TESSALON) 100 MG capsule Take 1-2 capsules (100-200 mg total) by mouth 3 (three) timesdaily as needed for Cough. 40 capsule 0 Multiple Vitamins-Minerals (MULTIVITAL OR) sertraline (ZOLOFT) 50 MG tablet Take 1 tablet (50 mg total) by mouth daily. 90 tablet 2 triamcinolone (KENALOG) 0.1 % cream APPLY TOPICALLY TO THE AFFECTED AREA TWICE DAILY 45 g 0 No current facility-administered medications for this visit. Current Outpatient Medications on File Prior to Visit Medication Sig Multiple Vitamins-Minerals (MULTIVITAL OR) sertraline (ZOLOFT) 50 MG tablet Take 1 tablet (50 mg total) by mouth daily. triamcinolone (KENALOG) 0.1 % cream APPLY TOPICALLY TO THE AFFECTED AREA TWICE DAILY No current facility-administered medications on file prior to visit. Review of patient's allergies indicates: No Known Allergies Objective: Filed Vitals: 02/09/24 1014 BP: 108/76 Pulse: 77 Resp: 16 Temp: 97.2 ??F (36.2 ??C) SpO2: 97% Weight: 86.7 kg (191 lb 3.2 oz) Height: 1.727 m (5' 8 ) Physical Exam Vitals and nursing note reviewed. Constitutional: Comments: Marijuana smell noted upon entry of room HENT: Head: Normocephalic and atraumatic. Right Ear: External ear normal. Left Ear: External ear normal. Eyes: Conjunctiva/sclera: Conjunctivae normal. Cardiovascular: Rate and Rhythm: Normal rate and regular rhythm. Heart sounds: Normal heart sounds. No murmur heard. No friction rub. No gallop. Pulmonary: Effort: Pulmonary effort is normal. No respiratory distress. Breath sounds: Normal breath sounds. No wheezing or rales. Abdominal: Palpations: Abdomen is soft. Comments: Hernia noted, on the right side lateral to umbilicus, reducible but has some tenderness when pushing Genitourinary: Comments: Deferred today Neurological: Mental Status: He is alert. Assessment & Plan: Kwesi Gardner was seen today for cough and hernia. Diagnoses and all orders for this visit: Non-recurrent abdominal hernia without obstruction or gangrene, unspecified hernia type - Ambulatory referral to General Surgery ([facility]) Upper respiratory tract infection, unspecified type - azithromycin (ZITHROMAX) 250 MG tablet; Take 2 tabs daily for one day, then take 1 tab daily - benzonatate (TESSALON) 100 MG capsule; Take 1-2 capsules (100-200 mg total) by mouth 3 (three) times daily as needed for Cough. Discussion/Summary: Will refer to general surgery. Red flag symptoms discussed and need to go to ER if they present, including worsening pain, sustained pain that does not relieve, or inability to press on area without severe pain or being able to reduce. Will send out z-pack and tessalon perles; can also try Zyrtec and Flonase. Will have pt f/u as needed for these conditions with myself (should still f/u with GS) and with regular appointments otherwise. Pt v/u. Kwesi Shipman DO documented in this encounter Plan of Treatment Scheduled Referrals Name Type Priority Associated Diagnoses Orde r Schedule Ambulatory referral to General Surgery ([facility]) Referral Routine Non-recurrent abdominal hernia without obstruction or gangrene, unspecified hernia type Ordered: 02/09/2024 documented as of this encounter Visit Diagnoses Diagnosis Non-recurrent abdominal hernia without obstruction or gangrene, unspecified hernia type- Primary Upper respiratory tract infection, unspecified type documented in this encounter Additional Health Concerns Assessment Noted Time PHQ-9 Depression Total Score: 12 021 2:00 PM CDT documented as of this encounter Care Teams Client Account Manager Relationship Specialty Start Date End Date Kwesi Shipman DO [address] [place] [phone] PCP - General FAMILY PRACTICE 08/08/19 documented as of this encounter
--- OUTSIDE RECORDS SUMMARY | 2024-10-23 17:48 | XMS_ITS | Encounter Summary ---
Author Organization [facility] Address [address] [place] [address]. [place] [address] Care Team Providers Care Adapted Physical Education Teacher Name Role Phone Kwesi Shipman DO Primary Care Provider + Reason for Visit * Reason Comments Rash x 2 weeks Encounter Details Date Type Department Care Team (Late st Contact Info) Description 09/21/2019 7:00 AM VISITING HOUSEKEEPER Office Visit [facility] Medical Group Family & Internal Medicine [address] [phone] Kwesi Shipman DO [address] [place] [address] [phone] Rash (x 2 weeks ) Social History Tobacco Use Types Packs/Day [...] Sign Reading Time Taken Comments Blood Pressure 114/72 09/21/2019 7:09 AM VISITING HOUSEKEEPER Pulse 45 09/21/2019 7:09 AM VISITING HOUSEKEEPER Temperature 36.5 ??C (97.7 ??F) 09/21/2019 7:09 AM CS T Respiratory Rate 16 09/21/2019 7:09 AM VISITING HOUSEKEEPER Oxygen Saturation 98% 09/21/2019 7:09 AM VISITING HOUSEKEEPER Inhaled Oxygen Concentration - - Weight 103.5 kg (228 lb 3 oz) 09/21/2019 7:09 AM VISITING HOUSEKEEPER Height 172.7 cm (5' 8 ) 09/21/2019 7:09 AM VISITING HOUSEKEEPER Body Mass Index 34.7 09/21/2019 7:09 AM VISITING HOUSEKEEPER documented in this encounter Progress Notes * Kwesi Stock Ramonita, DO - 09/21/2019 7:00 AM CST Images from the original note were not included. GENERAL OFFICE VISIT Encounter Date: 09/21/2019 Chief Complaint: 24-year-old male presents for Rash (x 2 weeks ) HPI: Pt presents with rash on flexor surfaces of elbows/forearms. They itch, are painful. He has put neosporin on it to help with pain. No drainage. They are both arms. They have been there for about two weeks. They have not significantly changed. Has had similar rashes before. No other significant symptoms. Review of Systems Constitutional: Negative for fever. Cardiovascular: Negative for chest pain. Gastrointestinal: Negative for abdominal pain. Skin: See HPI Patient Active Problem List Diagnosis [...] file Gets together: Not on file Attends orthodoxy service: Not on file Active member of [...] Outpatient Medications Medication Sig Dispense Refill ??? cyclobenzaprine 10 MG tablet Take 1 tablet (10 mg total) by mouth 3 (three) times daily as needed for Muscle Spasms. 90 tablet 0 ??? duloxetine 30 MG capsule Take 1 capsule (30 mg total) by mouth daily. 90 capsule 1 ??? methylPREDNISolone, CHELSEA, 4 MG tablet 6 TABLETS ON DAY ONE, 5 TABLETS DAY TWO, 4 TABLETS DAY THREE, 3 TABLETS DAY FOUR, 2 TABLETS DAY FIVE, AND 1 TABLET DAY SIX 1 each 0 ??? triamcinolone 0.1 % cream Apply topically 2 (two) times daily. 45 g 0 No current facility-administered medications for this visit. Current Outpatient Medications on File Prior to Visit Medication Sig ??? cyclobenzaprine 10 MG tablet Take 1 tablet (10 mg total) by mouth 3 (three) times daily as needed for Muscle Spasms. ??? duloxetine 30 MG capsule Take 1 capsule (30 mg total) by mouth daily. No current facility-administered medications on file prior to visit. No Known Allergies Objective: Filed Vitals: 09/21/19 0709 BP: 114/72 Pulse: (!) 45 Resp: 16 Temp: 97.7 ??F (36.5 ??C) SpO2: 98% Weight: 103.5 kg (228 lb 3 oz) Height: 5' 8 (1.727 m) Physical Exam Constitutional: He is well-developed, well-nourished, and in no distress. HENT: Head: Normocephalic and atraumatic. Right Ear: External ear normal. Left Ear: External ear normal. Eyes: Conjunctivae are normal. Cardiovascular: Regular rhythm and normal heart sounds. Exam reveals no gallop and no friction rub. No murmur heard. WNL rate on auscultation Pulmonary/Chest: Effort normal and breath sounds normal. No respiratory distress. He has no wheezes. He has no rales. Abdominal: Soft. Bowel sounds are normal. There is no tenderness. Skin: Erytheatmous rash, most consistent with eczema, on anterior surface of elbows and forearms Nursing note and vitals reviewed. Assessment & Plan: Kwesi was seen today for rash. Diagnoses and all orders for this visit: Rash - triamcinolone 0.1 % cream; Apply topically 2 (two) times daily. - methylPREDNISolone, CHELSEA, 4 MG tablet; 6 TABLETS ON DAY ONE, 5 TABLETS DAY TWO, 4 TABLETS DAY THREE, 3 TABLETS DAY FOUR, 2 TABLETS DAY FIVE, AND 1 TABLET DAY SIX Discussion/Summary: Will treat as per above. If not improving in two weeks, consider prednisone taper. If still not improving, consider eucrisa trial. Pt v/u. Kwesi Shipman DO TING HOUSEKEEPER documented in this encounter Plan of Treatment Not on file documented as of this encounter Visit Diagnoses Diagnosis Rash- Primary Rash and other nonspecific skin eruption documented in this encounter Care Teams Adapted Physical Education Teacher Relationship Specialty Start Date End Date Kwesi Shipman DO [address] [place] [phone] PCP - General FAMILY PRACTICE 08/08/19 documented as of this encounter
--- OUTSIDE RECORDS SUMMARY | 2024-10-23 17:48 | XMS_ITS | Encounter Summary ---
Author Organization [facility] Address [address] [place] [address]. 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
--- OUTSIDE RECORDS SUMMARY | 2024-10-23 17:48 | XMS_ITS | Encounter Summary ---
Author Organization [facility] Address [address] [place] [address]. 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
--- OUTSIDE RECORDS SUMMARY | 2024-10-23 17:48 | XMS_ITS | Encounter Summary ---
Author Organization [facility] Address [address] [place] [address]. 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
--- OUTSIDE RECORDS SUMMARY | 2024-10-23 17:48 | XMS_ITS | Encounter Summary ---
Author Organization [facility] Address [address] [place] [address]. [place] [address] Care Team Providers Care Case Loader Operator Name Role Phone Kwesi Shipman DO Primary Care Provider + Reason for Referral * Consultation/Treatment (Routine) - Closed Specialty Diagnoses / Procedures Referred By Cont t Referred To Contact PAIN MANAGEMENT Diagnoses Chronic bilateral low back pain without sciatica Abnormal MRI, lumbar spine Kwesi Shipman DO [address] [place] [address] Phone: tel: fax: Referral ID Status Reason Start Date Expiration Date V isits Requested Visits Authorized [id number] Closed Specialty Services 12/06/2019 01/05/2021 1 1 CUT OPERATOR Reason for Visit * Reason Onset Date Comments Referral 12/06/2019 Encounter Details Date Type Department Care Team (Late st Contact Info) Description 12/06/2019 Telephone [facility] Medical Group Family & Internal Medicine [facility] [address] [place] [address] Kwesi Shipman DO [address] [place] [address] Referral Social History Tobacco Use Types Packs/Day Years [...] as of this encounter Progress Notes * Debi Meza CMA - 12/06/2019 2:25 PM CST New referral placed CUT OPERATOR * Kwesi Shipman DO - 12/06/2019 12:07 PM CST That is fine. Thank you for the update. CUT OPERATOR * Toña Chandler - 12/06/2019 10:04 AM CST Pt needs new referral for Pain mgmt to HS please. Did not like current pain mgmt provider, Rylee. Also fyi that pt is seeing psych and they will take over psych pain meds. CUT OPERATOR documented in this encounter Plan of Treatment Scheduled Referrals Name Type Priority Associated Diagnoses Orde r Schedule Ambulatory Referral to Pain Management Referral Routine Chronic bilateral low back pain without sciatica Abnormal MRI, lumbar spine Ordered: 12/06/2019 documented as of this encounter Visit Diagnoses Diagnosis Chronic bilateral low back pain without sciatica- Primary Abnormal MRI, lumbar spine Nonspecific (abnormal) findings on radiological and other examination of musculoskeletal system documented in this encounter Care Teams Case Loader Operator Relationship Specialty Start Date End Date Kwesi Shipman DO [address] [place] [phone] PCP - General FAMILY PRACTICE 08/08/19 documented as of this encounter
--- OUTSIDE RECORDS SUMMARY | 2024-10-23 17:48 | XMS_ITS | Encounter Summary ---
Author Organization [facility] Address [address] [place] [address]. 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
--- OUTSIDE RECORDS SUMMARY | 2024-10-23 17:48 | XMS_ITS | Encounter Summary ---
Author Organization [facility] Address [address] [place] [address]. [place] [address] Care Team Providers Care Foundation Drill Operator Helper Name Role Phone Kwesi Shipman DO Primary Care Provider + Reason for Referral * Physical Medicine (Routine) - Closed Specialty Diagnoses / Procedures Referred By Jamison vegas Referred To Contact PHYSICAL THERAPY / [facility] Physical Therapy Diagnoses Abnormal MRI, lumbar spine Kwesi Shipman DO [address] [place] [address] Phone: tel: fax: Referral ID Status Reason Start Date Expiration Date V isits Requested Visits Authorized [id number] Closed Physical Therapy 10/14/2019 11/12/2020 1 1 ITY ASSURANCE ASSESSOR Reason for Visit * Reason Onset Date Comments Results 10/10/2019 Encounter Details Date Type Department Care Team (Late st Contact Info) Description 10/10/[address] [facility] Medical Group Family & Internal Medicine [facility] [address] [place] [address] Kwesi Shipman DO [address] [place] [address] Results Social History Tobacco Use Types Packs/Day [...] Progress Notes * Ritika Pablo RN - 10/14/2019 1:23 PM CSTAddended by: RITIKA PABLO on: 10/14/2019 01:23 PM Modules accepted: Orders ITY ASSURANCE ASSESSOR * Ritika Pablo RN - 10/14/2019 1:23 PM CST Referral entered. ITY ASSURANCE ASSESSOR * Kwesi Shipman DO - 10/14/2019 10:41 AM CST That is fine. ITY ASSURANCE ASSESSOR * Sandra Tobar MA - 10/14/2019 9:55 AM CST Patient mother called back and states she can not afford PT because it will be a $40 copay for eachvisit. Mother is agreeable to pain management referral Ok to send? ITY ASSURANCE ASSESSOR * Ritika Pablo RN - 10/14/2019 9:03 AM CST Spoke to patient; verbalized understanding. Referral for PT entered. ITY ASSURANCE ASSESSOR * Ritika Pablo RN - 10/13/2019 9:46 AM CST [facility] 10/13/19 ITY ASSURANCE ASSESSOR * Ritika Pablo RN - 10/11/2019 10:38 AM CST [facility] 10/11/19 ITY ASSURANCE ASSESSOR * Kwesi Shipman DO - 10/10/2019 9:08 PM CST Please let pt know that we have his results from his lumbar spine MRI on 10/07/19. He does have some mild findings at multiple levels with stenosis and arthritis. If pt's pain isn't controlled, I'd start with a physical therapy evaluation. Then, if he is still having issues, I'd recommend pain management referral for consideration of ROBERT. If his symptoms are well controlled, we don't necessarily have to do any of this, but it would be the next step in management otherwise. ITY ASSURANCE ASSESSOR documented in this encounter Plan of Treatment Scheduled Referrals Name Type Priority Associated Diagnoses Orde r Schedule Ambulatory referral to Physical Therapy Referral Routine Abnormal MRI, lumbar spine Ordered: 10/14/2019 documented as of this encounter Visit Diagnoses Diagnosis Abnormal MRI, lumbar spine- Primary Nonspecific (abnormal) findings on radiological and other examination of musculoskeletal system documented in this encounter Care Teams Foundation Drill Operator Helper Relationship Specialty Start Date End Date Kwesi Shipman DO [address] [place] [phone] PCP - General FAMILY PRACTICE 08/08/19 documented as of this encounter
--- OUTSIDE RECORDS SUMMARY | 2024-10-23 17:48 | XMS_ITS | Encounter Summary ---
Author Organization [facility] Address [address] [place] [address]. 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 No / Unsure 03/13/2023 8:08 AM CDT documented as of this encounter Plan of Treatment Not on file documented as of this encounter Visit Diagnoses Not on filedocumented in this encounter Additional Health Concerns Assessment Noted Time PHQ-9 Depression Total Score: 12 021 2:00 PM CDT documented as of this encounter Care Teams Statistical Clerk Relationship Specialty Start Date End Date Kwesi Shipman DO [address] [place] [address] PCP - General FAMILY PRACTICE 08/08/19 documented as of this encounter
--- OUTSIDE RECORDS SUMMARY | 2024-10-23 17:48 | XMS_ITS | Encounter Summary ---
Author Organization [facility] Address [address] [place] [address]. [place] [address] Care Team Providers Care Boom Operator Name Role Phone Kwesi Shipman DO Primary Care Provider + Reason for Visit * Reason Onset Date Comments Carpal Tunnel Syndrome 02/14/2020 Encounter Details Date Type Department Care Team (Late st Contact Info) Description 02/14/2020 Telephone [facility] Family & Internal Medicine [id number] [place] [phone] Kwesi Shipman DO [address] [place] [address] Carpal Tunnel Syndrome Social History Tobacco Use Types Packs/Day Years [...] Progress Notes * Sandra Tobar MA - 02/14/2020 3:13 PM CDT Patient notified and v/u * Kwesi Shipman DO - 02/14/2020 3:07 PM CDT Please let pt know that they have wrist splints for CTS at [facility], so I recommend he purchase one from there. We can send an order if we need to. (We talked about this during his virtual visit today). documented in this encounter Plan of Treatment Not on file documented as of this encounter Visit Diagnoses Not on filedocumented in this encounter Care Teams Boom Operator Relationship Specialty Start Date End Date Kwesi Shipman DO [address] [place] [address] PCP - General FAMILY PRACTICE 08/08/19 documented as of this encounter
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
--- OUTSIDE RECORDS SUMMARY | 2024-10-23 17:48 | XMS_ITS | Encounter Summary ---
Author Organization [facility] Address [address] [place] [address]. [place] [address] Care Team Providers Care Prism Measurer Name Role Phone Kwesi Shipman DO Primary Care Provider + Encounter Details Date Type Department Care Team (Late st Contact Info) Description 01/14/2023 8:20 AM CDT Laboratory Only [facility] Family & Internal Medicine [phone] [place] [phone] Kwesi Shipman DO 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 No / Unsure 01/14/2023 7:45 AM CDT documented as of this encounter Plan of Treatment Not on file documented as of this encounter Procedures Procedure Name Priority Date/Time Associated Diagnosis Comments COLLECTION VENOUS BLOOD VENIPUNCTURE Routine 01/14/2023 8:16 AM CDT Hypopotassemia BASIC METABOLIC PANEL Routine 01/14/2023 8:16 AM CDT Hypopotassemia MAGNESIUM Routine 01/14/2023 8:16 AM CDT Hypopotassemia documented in this encounter Results * (ABNORMAL) BASIC METABOLIC PANEL (01/14/2023 8:16 AM CDT) SODIUM S/P/B 141 136 - 145 MMOL/L 01/14/2023 3:[address] PM [address] [facility] POTASSIUM S/P/B 3.6 3.5 - 5.1 MMOL/L 01/14/2023 3:09 PM CDT [facility] CHLORIDE S/P/B 105 98 - 107 MMOL/L 01/14/2023 3:09 PM [address] [facility] CO2 26.4 21 - 32 MMOL/L 01/14/2023 3:09 PM CD[address] [facility] GLUCOSE 113(H) 70 - 99 MG/DL 01/14/2023 3:09 PM CDT [facility] BUN 19(H) 7 - 18 MG/DL 01/14/2023 3:09 PM CD[address] [facility] CREATININE S/P/B 0.82 0.70 - 1.30 MG/DL 01/14/2023 3:09 PM CDT [facility] CALCIUM S/P/B 8.2(L) 8.4 - 10.5 MG/DL 01/14/2023 3:09 PM CDT [facility] ANION GAP 9.6 5 - 15 MMOL/L 01/14/2023 3:09 [address] [facility] Comment:REFERENCE RANGE NOT ESTABLISHED OSMOLALITY (CALC) 295 MOSM/KG 023 3:09 PM CDT [facility] Comment:REFERENCE RANGE NOT ESTABLISHED GFR ESTIMATE >90 >90 ML/MIN/1. 73 M2 01/14/2023 3:09 PM [address] [facility] GFR NOTES GFR REFERENCE S: 01/14/2023 3:09 PM CD[address] [facility] Comment: THE ESTIMATED GFR IS CALCULATED [...] <15 ml/min/1.73 m2 01/14/2023 8:16 AM CDT Kwesi Shipman DO LABORATORY Final Re sult Performing Organization Address City/[facility]/ZIP Co de Phone Number [facility] [address] [place] [address], * MAGNESIUM (01/14/2023 8:16 AM CDT) MAGNESIUM 1.8 1.8 - 2.4 MG/DL 01/14/2023 3:[address] [facility] 01/14/2023 8:16 AM CDT Kwesi Shipman DO LABORATORY Final Re sult [facility] [address] [place] [address], documented in this encounter Visit Diagnoses Diagnosis Hypopotassemia documented in this encounter Additional Health Concerns Assessment Noted Time PHQ-9 Depression Total Score: 12 021 2:00 PM CDT documented as of this encounter Care Teams Prism Measurer Relationship Specialty Start Date End Date Kwesi Shipman DO [address] [place] [address] PCP - General FAMILY PRACTICE 08/08/19 documented as of this encounter
--- OUTSIDE RECORDS SUMMARY | 2024-10-23 17:48 | XMS_ITS | Encounter Summary ---
Author Organization [facility] Address [address] [place] [address]. 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 No / Unsure 12/18/2022 8:53 AM CARDIAC REHAB NURSE documented as of this encounter Progress Notes * Kwesi Shipman DO - 12/22/2022 1:36 PM CDT Can do sertraline 25 mg, take 1 tablet daily for one week, then take 2 tablets daily, #60 tabs withzero refills. documented in this encounter Plan of Treatment Not on file documented as of this encounter Visit Diagnoses Not on filedocumented in this encounter Additional Health Concerns Assessment Noted Time PHQ-9 Depression Total Score: 12 04/03/ 021 2:00 PM CDT documented as of this encounter Care Teams Timekeeper Supervisor Relationship Specialty Start Date End Date Kwesi Shipman DO [address] [place] [id number] PCP - General FAMILY PRACTICE 08/08/19 documented as of this encounter
--- OUTSIDE RECORDS SUMMARY | 2024-10-23 17:48 | XMS_ITS | Encounter Summary ---
Author Organization [facility] Address [address] [place] [address]. [place], [place] [id number] [place], [place] [id number] Care Team Providers Care Siebel Administrator Name Role Phone Kwesi Shipman DO Primary Care Provider + Encounter Details Date Type Department Care Team (Latest Contact Info) Description 02/16/2020 10:16 AM CDT - 02/16/2020 11:59 PM CDT Hospital Encounter [facility] [place] [address] Kwesi Shipman DO [facility]1 [place], [place] [id number] Discharge Disposition: Home or Self Care (Routine [...] AM CDT documented as of this encounter Medications at Time of Discharge carBAMazepine 200 MG tablet 10/20/2019 1 CYCLOBENZAPRINE 10 MG tabletIndication s:Chronic bilateral low back pain without sciatica TAKE 1 TABLET BY MOUTH THREE TIMES DAILY NEEDED FOR MUSCLE SPASMS 30 tablet 01/23/2020 0 duloxetine 30 MG capsuleIndicatio ns:Severe episode of recurrent major depressive disorder, without psychotic features (CMS/HCC HHS/HCC) Take 1 capsule (30 mg total) by mouth daily. 90 capsule 1 09/12/2019 1 hydrOXYzine 50 MG tablet TK 1 TO 2 TS PO Q 8 H PRF ANXIETY 10/19/2019 3 naproxen 500 MG tabletIndication s:Left hand pain,Carpal tunnel syndrome of left wrist Take 1 tablet (500 mg total) by mouth 2 (two) times daily with meals. 60 tablet 02/16/2020 1 OLANZapine (ZYPREXA) 5 MG tabletIndication s:Severe episode of recurrent major depressive disorder, without psychotic features (CMS/HCC HHS/HCC) Take 1 tablet (5 mg total) by mouth nightly at bedtime. 30 tablet 11/09/2019 1 predniSONE 20 MG tabletIndication s:Left hand pain,Carpal tunnel syndrome of left wrist Take 2 tablets (40 mg total) by mouth daily. 10 tablet 02/16/2020 0 triamcinolone 0.1 % creamIndications :Rash Apply topically 2 (two) times daily. 45 g 1 12/14/2019 1 documented as of this encounter Progress Notes * Kwesi Shipman DO - 02/16/2020 11:07 AM CDT Please let pt know that his D-Dimer and his XR are unremarkable. Take medications as prescribed andf/u with hand surgeon as recommended. documented in this encounter Plan of Treatment Not on file documented as of this encounter Procedures Procedure Name Priority Date/Time Associated Diagnosis Comments D-DIMER, QUANTITATIVE STAT 02/16/2020 8:35 AM CDT Swelling of left hand documented in this encounter Results * D-DIMER, QUANTITATIVE (02/16/2020 8:35 AM CDT) D-DIMER <150 0 - 230 D DU ng/mL 02/16/2020 11:02 AM CDT [facility] Comment: TESTING PERFORMED ON [employer] ACL TOP 300 ANALYZER. NOTE: RESULTS OF THIS TEST SHOULD ALWAYS BE INTERPRETED IN CONJUNCTION WITH THE PATIENT'S MEDICAL HISTORY, CLINICAL PRESENTATION AND OTHER FINDINGS. CLINICAL DIAGNOSIS SHOULD NOT BE BASED ON THE RESULT OF D-DIMER ALONE. THE MEASUREMENT OF D-DIMER SHOULD NOT BE USED AN AID IN THE DIAGNOSIS OF VTE IN PATIENTS WITH: THERAPEUTIC DOSE ANTICOAGULANT THERAPY FOR >24HRS, FIBRINOLYTIC THERAPY WITHIN PREVIOUS 7 DAYS, TRAUMA OR SURGERY WITHIN PREVIOUS 4 WEEKS, DISSEMINATED MALIGNANCIES, AORTIC ANEURYSM, SEPSIS, SEVERE INFECTIONS, PNEUMONIA, SEVERE SKIN INFECTIONS, LIVER CIRRHOSIS OR . 02/16/2020 8:35 AM CDT Kwesi Shipman DO LABORATORY Final Re sult [facility] [address] [place] [address], documented in this encounter Visit Diagnoses Diagnosis Swelling of left hand documented in this encounter Care Teams Siebel Administrator Relationship Specialty Start Date End Date Kwesi Shipman DO [address] [place] [id number] PCP - General FAMILY PRACTICE 08/08/19 documented as of this encounter
--- OUTSIDE RECORDS SUMMARY | 2024-10-23 17:48 | XMS_ITS | Encounter Summary ---
Author Organization [facility] Address [address] [place] [address]. 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 No / Unsure 05/24/2020 9:23 AM CDT documented as of this encounter Plan of Treatment Not on file documented as of this encounter Visit Diagnoses Not on filedocumented in this encounter Additional Health Concerns Assessment Noted Time PHQ-9 Depression Total Score: 0 05/24/20 20 9:31 AM CDT documented as of this encounter Care Teams Perl Developer Relationship Specialty Start Date End Date Kwesi Shipman DO [address] [place] [id number] PCP - General FAMILY PRACTICE 08/08/19 documented as of this encounter
--- OUTSIDE RECORDS SUMMARY | 2024-10-23 17:48 | XMS_ITS | Encounter Summary ---
Author Organization [facility] Address [address] [place] [address]. 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 No / Unsure 12/11/2022 1:09 PM PRINCIPAL ACCOUNTS CLERK documented as of this encounter Progress Notes * Norma Cifuentes MA - 12/12/2022 8:00 AM CST Patient contacted and informed of results and recommendations. Voiced understanding tn CIPAL ACCOUNTS CLERK * Norma Cifuentes MA - 12/12/2022 7:58 AM CST ----- Message from Kwesi Shipman DO sent at 12/11/2022 9:03 PM PRINCIPAL ACCOUNTS CLERK ----- No acute fracture on shoulder XR, although there is a possible old chip fracture. This would not change the recommendation for starting with PT. No abnormality noted on XR of cervical spine. CIPAL ACCOUNTS CLERK documented in this encounter Plan of Treatment Not on file documented as of this encounter Visit Diagnoses Not on filedocumented in this encounter Additional Health Concerns Assessment Noted Time PHQ-9 Depression Total Score: 12 021 2:00 PM CDT documented as of this encounter Care Teams Social Media Sr Strategy Manager Relationship Specialty Start Date End Date Kwesi Shipman DO [address] [place] [id number] PCP - General FAMILY PRACTICE 08/08/19 documented as of this encounter
--- OUTSIDE RECORDS SUMMARY | 2024-10-23 17:48 | XMS_ITS | Encounter Summary ---
Author Organization [facility] Address [address] [place] [address]. 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
--- OUTSIDE RECORDS SUMMARY | 2024-10-23 17:48 | XMS_ITS | Encounter Summary ---
Author Organization [facility] Address [address] [place] [address]. [place] [address] Care Team Providers Care Body Cleaner Name Role Phone Saumya Nunes DO Primary Care Provider + Reason for Visit * Reason Onset Date Comments Advise 10/24/2019 Encounter Details Date Type Department Care Team (Late st Contact Info) Description 10/24/2019 Telephone [facility] Family & Internal Medicine [facility] [address] [place] [address] Saumya Nunes DO [address] [place] [address] Advise Social History Tobacco Use Types Packs/Day Years [...] Progress Notes * Sandra Tobar MA - 10/25/2019 8:07 AM CST Mother informed and v/u PATIONAL HEALTH TECHNICIAN * Patsy Sepulveda MA - 10/24/2019 3:16 PM CST LMTC 10/24/18 PATIONAL HEALTH TECHNICIAN * Saumya Nunes DO - 10/24/2019 12:33 PM CST Pt is not on librium per our records. If pt is in facility, this is typically managed by the doctorat the facility. Regardless, I have not prescribed this medicine nor do I routinely do so. PATIONAL HEALTH TECHNICIAN * Melissa Molina MA - 10/24/2019 12:10 PM CST Refill request received from Patient Patient called stated that he is currently in the crisis unit at [facility] was therefor detox and now there in the mental health facility. Pt called and stated that he is needing a refill on his Lybrium 50 mg takes twice daily for anger management and to stop himself from hitting himself stated that the facility told him that his PCP can fill and fax over and order to I DO NOT SEE THIS MEDICATION IN PT MED LIST PLEASE ADVISE Last visit with SAUMYA NUNES in FAMILY PRACTICE was on: 09/21/[address] [facility] Future Appointments Date Time Provider Department Center 12/14/2019 2:40 PM Sa[facility]ya Nunes DO [id number] [place], [place] - [address] [place] [address] AT [facility] [address] [facility] [phone] Current Outpatient Medications: ??? cyclobenzaprine 10 MG tablet, Take 1 tablet (10 mg total) by mouth 3 (three) times daily as needed for Muscle Spasms., Disp: 90 tablet, Rfl: 0 ??? duloxetine 30 MG capsule, Take 1 capsule (30 mg total) by mouth daily., Disp: 90 capsule, Rfl: 1 ??? methylPREDNISolone, CHELSEA, 4 MG tablet, 6 TABLETS ON DAY ONE, 5 TABLETS DAY TWO, 4 TABLETS DAY THREE, 3 TABLETS DAY FOUR, 2 TABLETS DAY FIVE, AND 1 TABLET DAY SIX, Disp: 1 each, Rfl: 0 ??? triamcinolone 0.1 % cream, Apply topically 2 (two) times daily., Disp: 45 g, Rfl: 0 PATIONAL HEALTH TECHNICIAN documented in this encounter Plan of Treatment Not on file documented as of this encounter Visit Diagnoses Not on filedocumented in this encounter Care Teams Body Cleaner Relationship Specialty Start Date End Date Saumya Nunes DO [address] [place] [id number] PCP - General FAMILY PRACTICE 08/08/19 documented as of this encounter
--- OUTSIDE RECORDS SUMMARY | 2024-10-23 17:48 | XMS_ITS | Encounter Summary ---
Author Organization [facility] Address [address] [place] [address]. 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 No / Unsure 12/18/2022 8:53 AM HEAVY COIL WINDER documented as of this encounter Progress Notes * Katja Bond MA - 12/22/2022 2:14 PM CDT ----- Message from Kwesi Shipman DO sent at 12/22/2022 1:36 PM CDT ----- Regarding: FW: Lexapro Contact: Can do sertraline 25 mg, take 1 tablet daily for one week, then take 2 tablets daily, #60 tabs withzero refills. ----- Message ----- From: Katja Bond MA Sent: 12/22/2022 9:06 AM CDT To: Kwesi Shipman DO Subject: FW: Marcellusaprpatience Pt. Concerns please advise ----- Message ----- From: Kwesi David Sent: 12/19/2022 3:47 PM CDT To: Jj Shea Nurse Subject: Marcellusapro Britton, I noticed when I took picked up my medication at the pharmacy the other day that I have taken this previously and experienced adverse side effects from it. I was wondering if there is anything similar to this I can try instead please? documented in this encounter Plan of Treatment Not on file documented as of this encounter Visit Diagnoses Diagnosis Severe episode of recurrent major depressive disorder, without psychotic features ([facility]/HCC [facility])- Primary documented in this encounter Additional Health Concerns Assessment Noted Time PHQ-9 Depression Total Score: 12 021 2:00 PM CDT documented as of this encounter Care Teams Dry Cleaning Supervisor Relationship Specialty Start Date End Date Kwesi Shipman DO [address] [place] [id number] PCP - General FAMILY PRACTICE 08/08/19 documented as of this encounter
--- OUTSIDE RECORDS SUMMARY | 2024-10-23 17:48 | XMS_ITS | Encounter Summary ---
Author Organization [facility] Address [address] [place] [address]. [place] [address] Care Team Providers Care Meter Tester Primary Name Role Phone Kwesi Shipman DO Primary [...] on filedocumented in this encounter Care Teams Meter Tester Primary Relationship Specialty Start Date End Date Kwesi Shipman DO [address] [place], [place] [phone] PCP - General FAMILY PRACTICE 08/08/19 documented as of this encounter
--- OUTSIDE RECORDS SUMMARY | 2024-10-23 17:48 | XMS_ITS | Encounter Summary ---
Author Organization [facility] Address [address] [place] [address]. [place] [address] Care Team Providers Care Utility Appraiser Name Role Phone Kwesi Shipman DO Primary Care Provider + Reason for Referral * Imaging (Routine) - Closed Specialty Diagnoses / Procedures Referred By Jamison vegas Referred To Contact RADIOLOGY Diagnoses Carpal tunnel syndrome on left Procedures OUS GUIDE NEEDLE PLCMT ORTHO Iain Mcdonald MD Phone: tel: fax: Referral ID Status Reason Start Date Expiration Date Visits Re quested Visits Authorized [id number] Closed 04/16/2020 05/17/2021 1 1 Reason for Visit * Reason Comments Carpal Tunnel Syndrome Lt CTS for about 3 mos * Surgical (Routine) - Closed Specialty Diagnoses / Procedures Referred By Jamison vegas Referred To Contact HAND SURGERY / ORTHOPAEDICS Diagnoses Carpal tunnel syndrome of right wrist Kwesi Shipman DO [address] [place] [address] Phone: tel: fax: Iain Mcdonald MD Phone: tel: fax: Referral ID Status Reason Start Date Expiration Date Visits Re quested Visits Authorized [id number] Closed 02/14/2020 03/15/2021 99 99 Encounter Details Date Type Department Care Team (Latest Contact Info) Description 04/16/2020 3:00 PM CDT Office Visit [facility] - [facility] [address] [place] [phone] Iain Mcdonald MD [address] [place] [address] Carpal Tunnel Syndrome (Lt CTS for about 3 mos) Social History Tobacco Use Types Packs/Day Years [...] Sign Reading Time Taken Comments Blood Pressure 98/49 04/16/2020 3:26 PM CDT Pulse - - Temperature - - Respiratory Rate - - Oxygen Saturation 98% 04/16/2020 3:26 PM CDT Inhaled Oxygen Concentration - - Weight 104.8 kg (231 lb 1.6 oz) 04/16/2020 3:26 PM CDT Height - - Body Mass Index 35.14 02/16/2020 7:06 AM CDT documented in this encounter Progress Notes * Iain Mcdonald MD - 04/16/2020 3:00 PM CDT Images from the original note were not included. OFFICE VISIT SUBJECTIVE Reason for Visit: No chief complaint on file. History of Present Illness: 25-year-old right-hand dominant male, referred by Kwesi Shipman DO, presents today for evaluation of numbness/tingling and pain. Patient complaining of 3-6 months history of numbness, tingling and pain of bilateral hand L>R involving thumb, index, and middle fingers primarily. Also describes associated aching pain on the volar aspect of the wrist that radiates up forearm. Inaddition describes stiffness, sensation of swelling and hot/cold sensation along affected fingers. Positive night symptoms that wake him up 7 nights a week. Pt is frequently shaking or massaging the hands for relief. During the day symptoms exacerbate with activities such as using computer, using the phone, writing, doing desk work, driving, prolonged hold/easement worker, prolong elbow flexion, resting arm on desck/chair. Pt also complains of decreased easement worker strength, decreased dexterity, and dropping things. Previous treatment: Splints, NSAID's. No history of trauma. No other complaints. Past medical history, past social history, past surgical history and past family history were all completely reviewed and stated as follows Review of Systems: Review of Systems Constitutional: Negative. HENT: Negative. Eyes: Negative. Respiratory: Negative. Cardiovascular: Negative. Gastrointestinal: Negative. Genitourinary: Negative. Musculoskeletal: Positive for joint pain. Skin: Negative. Neurological: Positive for tingling. Endo/Heme/Allergies: Negative. Psychiatric/Behavioral: Negative. History: Past Medical History: Diagnosis Date ??? ADD (attention deficit disorder) ??? Anxiety ??? Depression Past Surgical History: Procedure Laterality Date ??? HAND SURGERY right hand ??? TONSILLECTOMY Family History Problem Relation Name Age of Onset ??? Hypertension Mother ??? Hypertension Father Social History Tobacco Use ??? Smoking status: Former Smoker Packs/day: 0.50 Years: 5.00 Pack years: 2.50 Types: Cigarettes Last attempt to quit: 06/08/2019 Years since quittin.8 ??? Smokeless tobacco: Never Used Substance Use Topics ??? Alcohol use: No Frequency: Never ??? Drug use: Yes Frequency: 7.0 times per week Types: Marijuana Medications and Allergies: Current Outpatient Medications: ??? carBAMazepine 200 MG tablet, , Disp: , Rfl: ??? CYCLOBENZAPRINE 10 MG tablet, TAKE 1 TABLET BY MOUTH THREE TIMES DAILY NEEDED FOR MUSCLE SPASMS, Disp: 30 tablet, Rfl: 0 ??? duloxetine 30 MG capsule, Take 1 capsule (30 mg total) by mouth daily., Disp: 90 capsule, Rfl: 1 ??? hydrOXYzine 50 MG tablet, TK 1 TO 2 TS PO Q 8 H PRF ANXIETY, Disp: , Rfl: ??? naproxen 500 MG tablet, Take 1 tablet (500 mg total) by mouth 2 (two) times daily with meals., Disp: 60 tablet, Rfl: 0 ??? OLANZapine (ZYPREXA) 5 MG tablet, Take 1 tablet (5 mg total) by mouth nightly at bedtime., Disp: 30 tablet, Rfl: 0 ??? predniSONE 20 MG tablet, Take 2 tablets (40 mg total) by mouth daily., Disp: 10 tablet, Rfl: 0 ??? triamcinolone 0.1 % cream, Apply topically 2 (two) times daily., Disp: 45 g, Rfl: 1 No Known Allergies OBJECTIVE Vital Signs: There were no vitals filed for this visit. There is no height or weight on file to calculate BMI. Physical Exam: Physical Exam Constitutional: He is oriented to person, place, and time. He appears well- developed and well-nourished. HENT: Head: Normocephalic. Eyes: EOM are normal. Lymph nodes: No palpable lymphadenopathy involving bilateral upper extremities. Cardiovascular: Intact distal pulses. Pulmonary/Chest: Effort normal. No respiratory distress. Neurological: He is alert and oriented to person, place, and time. Psychiatric: He has a normal mood and affect. Upper Extremity Exam: Right Upper Extremity Upper Arm : no tenderness, no swelling, no masses, no deformities Elbow : Inspection/Palpation: no tenderness, no swelling, no erythema, no induration, no bruising. All muscle compartments soft, no joint effusion present, no deformities noted, no masses present, no arthritic changes. Negative lateral/medial epicondylitis provocation test Range of Motion: Active and Passive ROM within functional range for age/activity level Strength: flexion and extension 5/5 Stability: no joint instability on provocative testing Tests/Signs: Tinel's and compression sign negative over cubital tunnel Forearm: no tenderness to palpation, no swelling, no forearm deformities noted, no masses present Wrist: Inspection/Palpation: no tenderness, no swelling, no erythema, no induration, no bruising. All muscle compartments soft, no joint effusion present, no deformities noted, no masses present, no arthritic changes, no crepitus noted in wrist/carpus Range of Motion: Active and Passive ROM within functional range for age/activity level Strength: flexion and extension and lateral deviation 5/5 Stability: no joint instability on provocative testing Tests/Signs: Tinel's and compression sign positive over carpal tunnel, J Luis test negative Hand : Inspection/Palpation: no tenderness, no swelling, no erythema, no induration, no bruising. All muscle compartments soft, no joint effusion present, no deformities noted, no masses present, no arthritic changes. No crepitus hand/fingers on ROM testing, no deformities of hand or fingers Range of Motion: Active and passive ROM within functional range for age/activity level Strength: all muscles 5/5 Stability: no joint instability on provocative testing Sensation: hand neuro-vascular exam intact Muscle Tone: tone normal Muscle Bulk: muscle bulk normal Skin: no skin lesions or discoloration Vascular Exam: normal capillary refill, radial artery pulse 2, ulnar artery pulse 2, normal finger capillary refill Left Upper Extremity Upper Arm : no tenderness, no swelling, no masses, no deformities Elbow : Inspection/Palpation: no tenderness, no swelling, no erythema, no induration, no bruising. All muscle compartments soft, no joint effusion present, no deformities noted, no masses present, no arthritic changes. Negative lateral/medial epicondylitis provocation test Range of Motion: Active and Passive ROM within functional range for age/activity level Strength: flexion and extension 5/5 Stability: no joint instability on provocative testing Tests/Signs: Tinel's and compression sign negative over cubital tunnel Forearm: no tenderness to palpation, no swelling, no forearm deformities noted, no masses present Wrist: Inspection/Palpation: no tenderness, no swelling, no erythema, no induration, no bruising. All muscle compartments soft, no joint effusion present, no deformities noted, no masses present, no arthritic changes, no crepitus noted in wrist/carpus Range of Motion: Active and Passive ROM within functional range for age/activity level Strength: flexion and extension and lateral deviation 5/5 Stability: no joint instability on provocative testing Tests/Signs: Tinel's and compression sign positive over carpal tunnel,, J Luis test negative Hand : Inspection/Palpation: no tenderness, no swelling, no erythema, no induration, no bruising. All muscle compartments soft, no joint effusion present, no deformities noted, no masses present, no arthritic changes. No crepitus hand/fingers on ROM testing, no deformities of hand or fingers Range of Motion: Active and passive ROM within functional range for age/activity level Strength: all muscles 5/5 Stability: no joint instability on provocative testing Sensation: hand neuro-vascular exam intact Muscle Tone: tone normal Muscle Bulk: muscle bulk normal Skin: no skin lesions or discoloration Vascular Exam: normal capillary refill, radial artery pulse 2, ulnar artery pulse 2, normal finger capillary refill Recent Imaging: No image results found. ASSESSMENT Diagnoses and all orders for this visit: Carpal tunnel syndrome on right Carpal tunnel syndrome on left PLAN Treatment/Counselling: Discussed the etiology, pathophysiology and natural history of nerve compression neuropathies, including carpal tunnel and cubital tunnel; including a detailed explanation of anatomy. Detailed review of non-operative and operative treatment options were discussed with patient including risks benefits and indications. Treatment criteria such as nerve function status and quality of life were discussed. Options such as NSAIDS, splinting, OT, oral and injected steroids, activity modification, open surgery and endoscopic surgery. Also discussed risks of permanent nerve function deterioration associated with increase duration and/or severity of symptoms/nerve compression. Also discussed possible risk of nerve entrapment from thickened (epineurum) tissue surrounding nerve which could require a separate procedure. Surgical risks including but not limited to, infection, bleeding, injury to surrounding structures,cicatrix, recurrence, joint stiffness, joint pain, chronic swelling, incisional tenderness, chronicnumbness, need of further surgery, possible anesthesia complications were all discussed. Possible need of Post op rehab was also explained. Patient voices understanding and wishes to proceed with steroid injection on left and night splinting. Procedure: US GUIDED LEFT CARPAL TUNNEL INJECTION: The risks, benefits and indications of steroid injections including but not limited to infection, bleeding, injury to underlying neurovascular structures, hematoma, seroma, skin pigment discoloration, weakening of surrounding soft tissues, incomplete relief, and eventual need for more definitive surgical intervention were explained to the patient. DETAILS: Following sterile precautions, the site of injection was prepped. Ultrasound probe was placed along volar wrist to localized median nerve trunk and provide image guidance to introduce 27-gauge needle into carpal tunnel in proximity to median nerve trunk avoiding local neurovascular structures uneventfully. 1 cc of lidocaine and 1 cc of dexamethasone were injected at the site with sterileprecautions uneventfully. The patient tolerated the procedure well. The injection site was covered with a Band-Aid. The patient was informed that they may experience more discomfort in the 24-48 hours following steroid injection after which symptoms of pain and discomfort should begin to resolve. IAIN MCDONALD MD 04/16/2020 Cc. DO Kwesi Woodall documented in this encounter Plan of Treatment Scheduled Orders Name Type Priority Associated Diagnoses Orde r Schedule THER INJECTION, CARPAL TUNNEL Procedures Routine Carpal tunnel syndrome on left Ordered: 04/16/2020 documented as of this encounter Visit Diagnoses Diagnosis Carpal tunnel syndrome on right- Primary Carpal tunnel syndrome Carpal tunnel syndrome on left Carpal tunnel syndrome documented in this encounter Administered Medications Inactive Administered Medications - up to 3 most recent administrations Medication Order MAR Action Action Date Dose Rate Site dexamethasone (DECADRON) injection 4 mg 4 mg, Intramuscular, Once, 1 dose, On 04/16/20 at 1615, Administer slowly over 1-4 minutes.Indications:Carpal tunnel syndrome on left Given 04/17/2020 2:58 PM CDT 4 mg O ther documented in this encounter Care Teams Utility Appraiser Relationship Specialty Start Date End Date Kwesi Shipman DO [address] [place] [phone] PCP - General FAMILY PRACTICE 08/08/19 documented as of this encounter
--- OUTSIDE RECORDS SUMMARY | 2024-10-23 17:48 | XMS_ITS | Encounter Summary ---
Author Organization [facility] Address [address] [place] [address]. [place] [phone] Care Team Providers Care Top Printing Press Operator Name Role Phone Kwesi Shipman DO Primary Care Provider + Encounter Details Date Type Department Care Team (Latest Contact Info) Description 02/14/2020 Travel Social History Tobacco Use Types Packs/Day [...] on filedocumented in this encounter Care Teams Top Printing Press Operator Relationship Specialty Start Date End Date Kwesi Shipman DO [address] [place] [phone] PCP - General FAMILY PRACTICE 08/08/19 documented as of this encounter
--- OUTSIDE RECORDS SUMMARY | 2024-10-23 17:48 | XMS_ITS | Encounter Summary ---
Author Organization [facility] Address [address] [place] [address]. 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 No / Unsure 01/14/2023 7:45 AM CDT documented as of this encounter Progress Notes * Luz Rodriguez MA - 01/29/2023 9:59 AM CDT Lmom FOR PATIENT TO RETURN CALL. LETTER SENT. * Radha Sánchez MA - 01/16/2023 3:15 PM CDT This MIKEL left voicemail for patient to return call to office 01/16/23 * Radha Sánchez MA - 01/16/2023 3:13 PM CDT ----- Message from Kwesi Shipman DO sent at 01/16/2023 12:47 PM CDT ----- Potassium is improved. Calcium is mildly low, but this is likely a false low given previous normals. We will check at future OV. Magnesium is normal. documented in this encounter Plan of Treatment Not on file documented as of this encounter Visit Diagnoses Not on filedocumented in this encounter Additional Health Concerns Assessment Noted Time PHQ-9 Depression Total Score: 12 04/03/2 021 2:00 PM CDT documented as of this encounter Care Teams Shoe Shanker Relationship Specialty Start Date End Date Kwesi Shipman DO [address] [place] [id number] PCP - General FAMILY PRACTICE 08/08/19 documented as of this encounter
--- OUTSIDE RECORDS SUMMARY | 2024-10-23 17:48 | XMS_ITS | Encounter Summary ---
Author Organization [facility] Address [address] [place] [address]. 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 No / Unsure 12/11/2022 1:09 PM INSPECTOR AND TESTER documented as of this encounter Plan of Treatment Not on file documented as of this encounter Visit Diagnoses Not on filedocumented in this encounter Additional Health Concerns Assessment Noted Time PHQ-9 Depression Total Score: 12 021 2:00 PM CDT documented as of this encounter Care Teams Locate Technician Relationship Specialty Start Date End Date Kwesi Shipman DO [address] [place] [phone] PCP - General FAMILY PRACTICE 08/08/19 documented as of this encounter
--- OUTSIDE RECORDS SUMMARY | 2024-10-23 17:48 | XMS_ITS | Encounter Summary ---
Author Organization [facility] Address [address] [place] [address]. 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 No / Unsure 03/13/2023 8:08 AM CDT documented as of this encounter Last Filed Vital Signs Vital Sign Reading Time Taken Comments Blood Pressure 126/82 03/13/2023 8:16 AM CDT Pulse 56 03/13/2023 8:16 AM CDT Temperature 36.7 ??C (98 ??F) 03/13/2023 8:16 AM CDT Respiratory Rate 16 03/13/2023 8:16 AM CDT Oxygen Saturation 98% 03/13/2023 8:16 AM CDT Inhaled Oxygen Concentration - - Weight 87.5 kg (193 lb) 03/13/2023 8:16 AM CDT Height 172.7 cm (5' 8 ) 03/13/2023 8:16 AM CDT Body Mass Index 29.35 03/13/2023 8:16 AM CDT documented in this encounter Patient Instructions * Patient Instructions* Kweis Shipman DO - 03/13/2023 8:00 [place] [address] Patient needs to call for his apt* Please schedule your nerve conduction study; call [phone]. documented in this encounter Progress Notes * Kwesi Shipman DO - 03/13/2023 8:00 AM CDT Images from the original note were not included. GENERAL OFFICE VISIT Encounter Date: 03/13/2023 Chief Complaint: 27-year-old male presents for Depression (Follow up on medication) HPI: Patient presents for major depressive disorder. Pt has had this for multiple years. Concurrent psychiatric conditions include PTSD. Pt is currently taking sertraline. Pt does not see counseling. Pt'ssymptoms are well controlled. Patient would like to continue current medications as prescribed. Pt did see PT one time for his shoulder for the pain and numbness/tingling. It has been helping just doing the exercises. He has not scheduled the NCS yet. Pt has not scheduled with [facility] yet for hernia that was diagnosed at last OV. His symptoms have not worsened. Review of Systems Constitutional: Negative for fever. Respiratory: Negative for shortness of breath. Cardiovascular: Negative for chest pain. 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 90 tablet 2 triamcinolone (KENALOG) 0.1 % cream APPLY TOPICALLY TO THE AFFECTED AREA TWICE DAILY 45 g 0 No current facility-administered medications for this visit. Current Outpatient Medications on File Prior to Visit Medication Sig Multiple Vitamins-Minerals (MULTIVITAL OR) triamcinolone (KENALOG) 0.1 % cream APPLY TOPICALLY TO THE AFFECTED AREA TWICE DAILY No current facility-administered medications on file prior to visit. Review of patient's allergies indicates: No Known Allergies Objective: Filed Vitals: 03/13/23 0816 BP: 126/82 Pulse: (!) 56 Resp: 16 Temp: 98 ??F (36.7 ??C) SpO2: 98% Weight: 87.5 kg (193 lb) Height: 5' 8 (1.727 m) Physical Exam [...] soft. Tenderness: There is no abdominal tenderness. Genitourinary: Comments: Deferred today Neurological: Mental Status: He is alert. Assessment & Plan: Kwesi was seen today for depression. Diagnoses and all orders for this visit: Severe episode of recurrent major depressive disorder, without psychotic features (CMS/HCC) - sertraline (ZOLOFT) 50 MG tablet; Take 1 tablet (50 mg total) by mouth daily. Umbilical hernia without obstruction and without gangrene PTSD (post-traumatic stress disorder) Chronic left shoulder pain Numbness and tingling in left arm Discussion/Summary: Continue current medications as prescribed; stable today. Encouraged to make appointment for nerve conduction study and general surgery. If symptoms are stable, can have patient follow-up in 9 monthsor sooner if needed. Patient verbalized understanding. Kwesi Shipman DO documented in this encounter Plan of Treatment Not on file documented as of this encounter Visit Diagnoses Diagnosis Severe episode of recurrent major depressive disorder, without psychotic features ([facility])- Primary Umbilical hernia without obstruction and without gangrene PTSD (post-traumatic stress disorder) Posttraumatic stress disorder Chronic left shoulder pain Pain in joint, shoulder region Numbness and tingling in left arm Disturbance of skin sensation documented in this encounter Additional Health Concerns Assessment Noted Time PHQ-9 Depression Total Score: 12 021 2:00 PM CDT documented as of this encounter Care Teams Cabin Service Agent Relationship Specialty Start Date End Date Kwesi Shipman DO [address] [place] [phone] PCP - General FAMILY PRACTICE 08/08/19 documented as of this encounter
--- OUTSIDE RECORDS SUMMARY | 2024-10-23 17:48 | XMS_ITS | Encounter Summary ---
Author Organization [facility] Address [address] [place] [address]. 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
--- OUTSIDE RECORDS SUMMARY | 2024-10-23 17:48 | XMS_ITS | Encounter Summary ---
Author Organization [facility] Address [address] [place] [address]. [place] [address] Care Team Providers Care Sales Secretary Name Role Phone Kwesi Shipman DO Primary Care Provider + Reason for Visit * Reason Comments Upper Extremity Pain left for 2 weeks Encounter Details Date Type Department Care Team (Late st Contact Info) Description 02/16/2020 7:40 AM CDT Office Visit [facility] Family & Internal Medicine [address] [phone] Kwesi Shipman DO [address] [place] [address] [phone] Upper Extremity Pain (left for 2 weeks ) Social History Tobacco Use [...] Sign Reading Time Taken Comments Blood Pressure 114/76 02/16/2020 7:06 AM CDT Pulse 70 02/16/2020 7:06 AM CDT Temperature 36.1 ??C (97 ??F) 02/16/2020 7:06 AM CDT Respiratory Rate 16 02/16/2020 7:06 AM CDT Oxygen Saturation 97% 02/16/2020 7:06 AM CDT Inhaled Oxygen Concentration - - Weight 104.8 kg (231 lb) 02/16/2020 7:06 AM CDT Height 172.7 cm (5' 8 ) 02/16/2020 7:06 AM CDT Body Mass Index 35.12 02/16/2020 7:06 AM CDT documented in this encounter Progress Notes * Kwesi Shipman, - 02/16/2020 7:40 AM CDT Images from the original note were not included. GENERAL OFFICE VISIT Encounter Date: 02/16/2020 Chief Complaint: 24-year-old male presents for Upper Extremity Pain (left for 2 weeks ) HPI: Pt presents again for left upper extremity pain. He notes it is interrupting his sleep at this time. He notes some swelling that is causing him to not be able to put on his wedding ring. He notes some numbness in the thumb and index finger. He has no known injury. He has not taken any medicines forthis since last evaluation. He has been doing more repetitive activities recently. Review of Systems Constitutional: Negative for fever. Respiratory: Negative for cough and shortness of breath. Neurological: See HPI Patient Active Problem List Diagnosis [...] file Gets together: Not on file Attends islam service: Not on file Active member of [...] PO Q 8 H PRF ANXIETY ??? naproxen 500 MG tablet Take 1 tablet (500 mg total) by mouth 2 (two) times daily with meals. 60tablet 0 ??? OLANZapine (ZYPREXA) 5 MG tablet Take 1 tablet (5 mg total) by mouth nightly at bedtime. 30 tablet 0 ??? predniSONE 20 MG tablet Take 2 tablets (40 mg total) by mouth daily. 10 tablet 0 ??? triamcinolone 0.1 % cream [...] visit. No Known Allergies Objective: Filed Vitals: 02/16/20 0706 BP: 114/76 Pulse: 70 Resp: 16 Temp: 97 ??F (36.1 ??C) SpO2: 97% Weight: 104.8 kg (231 lb) Height: 5' 8 (1.727 m) Physical [...] has no wheezes. He has no rales. Musculoskeletal: Phalen's positive on left, pain with palpation on left palm, possible swelling of digits on that side as well Nursing note and vitals reviewed. Assessment & Plan: Kwesi was seen today for upper extremity pain. Diagnoses and all orders for this visit: Left hand pain - XR HAND LT 3V; Future - naproxen 500 MG tablet; Take 1 tablet (500 mg total) by mouth 2 (two) times daily with meals. - predniSONE 20 MG tablet; Take 2 tablets (40 mg total) by mouth daily. - VENIPUNC ARM DRAW Swelling of left hand - D-DIMER, QUANTITATIVE; Future - VENIPUNC ARM DRAW Carpal tunnel syndrome of left wrist - naproxen 500 MG tablet; Take 1 tablet (500 mg total) by mouth 2 (two) times daily with meals. - predniSONE 20 MG tablet; Take 2 tablets (40 mg total) by mouth daily. - VENIPUNC ARM DRAW Discussion/Summary: I still suspect pt's symptoms are secondary to carpal tunnel. I gave him hand surgeon's office number as they tried to contact him yesterday to schedule. However, we will rule out other more pressingetiologies of pain with a D-Dimer and hand XR given pt's described pain level. Will give naproxen prescription and prednisone to help with symptoms. Already instructed on splint use at night. Will call pt back with results. Pt v/u. Kwesi Shipman DO documented in this encounter Plan of Treatment Not on file documented as of this encounter Procedures Procedure Name Priority Date/Time Associated Diagnosis Comments COLLECTION VENOUS BLOOD VENIPUNCTURE Routine 02/16/2020 8:35 AM CDT Left hand pain Swelling of left hand Carpal tunnel syndrome of left wrist documented in this encounter Results * XR HAND LT 3V (02/16/2020 8:51 AM CDT) Anatomical Region Laterality Modality Hand Radiographic Breanne ging 02/16/2020 8:58 AM CDT Impressions 02/16/2020 9:00 AM CDT =====IMPRESSION:===== ?? 1. ??No acute osseous abnormalities. Interpreted By: Jose Manuel Hernandes, 02/16/2020 8:58 AM Narrative 02/16/2020 9:00 AM CDT EXAMINATION: Left hand, 3 views EXAM DATE/TIME: 02/16/2020 8:35 AM REASON FOR EXAM: ??Left hand pain x2 weeks, tenderness to palpation on palm ? COMPARISON: None TECHNIQUE: PA, oblique, and lateral views of the left hand were obtained. FINDINGS: No acute fracture or dislocation. No destructive osseous lytic or sclerotic lesions. Joint spaces preserved. No radiopaque foreign bodies. Procedure Note Jose Manuel Hernandes MD - 02/16/2020 EXAMINATION: Left hand, 3 views EXAM DATE/TIME: 02/16/2020 8:35 AM REASON FOR EXAM: Left hand pain x2 weeks, tenderness to palpation on palm COMPARISON: None TECHNIQUE: PA, oblique, and lateral views of the left hand wereobtained. FINDINGS: No acute fracture or dislocation. No destructive osseous lyticor sclerotic lesions. Joint spaces preserved. No radiopaque foreign bodies. =====IMPRESSION:===== 1. No acute osseous abnormalities. Interpreted By: Jose Manuel Hernandes, 02/16/2020 8:58 AM Kwesi Shipman DO GENERAL IMAGING Final Re sult * D-DIMER, QUANTITATIVE (02/16/2020 8:35 AM CDT) D-DIMER <150 0 - 230 D DU ng/mL 02/16/2020 11:02 AM CDT [facility] Comment: TESTING PERFORMED ON ibabybox TOP 300 ANALYZER. NOTE: RESULTS OF THIS [...] Kwesi Shipman DO LABORATORY Final Re sult [facility] [address] [place] [address], [place] [phone] documented in this encounter Visit Diagnoses Diagnosis Left hand pain- Primary Pain in limb Swelling of left hand Carpal tunnel syndrome of left wrist Carpal tunnel syndrome documented in this encounter Care Teams Sales Secretary Relationship Specialty Start Date End Date Kwesi Shipman DO [address] [place] [address] PCP - General FAMILY PRACTICE 08/08/19 documented as of this encounter
--- OUTSIDE RECORDS SUMMARY | 2024-10-23 17:48 | XMS_ITS | Encounter Summary ---
Author Organization [facility] Address [address] [place] [address]. [place], [place] [id number] [place] [address] Care Team Providers Care Optomechanical Technician Name Role Phone CalvinbrendalillycharanjitMahnazKwesi Dayami HURTADO Primary Care Provider + Reason for Visit * Reason Onset Date Comments No Show 01/07/2023 Patient failed t o keep appointment. When telephoned patient states his had surgery today and he forgot to call. Will call to reschedule. Encounter Details Date Type Department Care Team (Late st Contact Info) Description 01/07/[address] [facility] Physical Therapy [address] [place] [address] Call, Karl Dumont PTA [facility] [place] [address] No Show (Patient failed to keep appointment. When telephoned patient states his had surgery today and he forgot to call. 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
--- OUTSIDE RECORDS SUMMARY | 2024-10-23 17:48 | XMS_ITS | Encounter Summary ---
Author Organization [facility] Address [address] [place] [address]. [place] [address] Care Team Providers Care Seal Extrusion Operator Name Role Phone Kwesi Shipman DO Primary Care Provider + Reason for Visit * Reason Onset Date Comments Results 02/16/2020 Encounter Details Date Type Department Care Team (Late st Contact Info) Description 02/16/2020 Telephone [facility] Family & Internal Medicine [place] [address] [place] [address] Kwesi Shipman DO [address] [place], [place] [phone] Results Social History Tobacco Use Types Packs/Day [...] v/u * Norma Cifuentes MA - 02/16/2020 11:33 AM CDT Lm 02/16/20 tn * Norma Cifuentes MA - 02/16/2020 11:32 AM CDT ----- Message from Kwesi Shipman DO sent at 02/16/2020 11:07 AM CDT ----- Please let pt know that his D-Dimer and his XR are unremarkable. Take medications as prescribed andf/u with hand surgeon as recommended. documented in this encounter Plan of Treatment Not on file documented as of this encounter Visit Diagnoses Not on filedocumented in this encounter Care Teams Seal Extrusion Operator Relationship Specialty Start Date End Date Kwesi Shipman DO [address] [place] [id number] PCP - General FAMILY PRACTICE 08/08/19 documented as of this encounter
--- OUTSIDE RECORDS SUMMARY | 2024-10-23 17:48 | XMS_ITS | Encounter Summary ---
Author Organization [facility] Address [address] [place] [address]. 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 No / Unsure 12/18/2022 8:53 AM CLAY PIGEON SETTER documented as of this encounter Medications at Time of Discharge triamcinolone (KENALOG) 0.1 % creamIndications :Rash APPLY TOPICALLY TO THE AFFECTED AREA TWICE DAILY 45 g 06/27/2022 escitalopram (LEXAPRO) 10 MG tabletIndication s:Severe episode of recurrent major depressive disorder, without psychotic features (CMS/HCC HHS/HCC),PTSD (post-traumatic stress disorder) Take 1 tablet (10 mg total) by mouth daily. 90 tablet 1 12/11/2022 3 hydrOXYzine 50 MG tablet TK 1 TO 2 TS PO Q 8 H PRF ANXIETY 10/19/2019 3 documented as of this encounter Plan of Treatment Not on file documented as of this encounter Visit Diagnoses Not on filedocumented in this encounter Additional Health Concerns Assessment Noted Time PHQ-9 Depression Total Score: 12 021 2:00 PM CDT documented as of this encounter Care Teams Printed Circuit Board Assembler Relationship Specialty Start Date End Date Kwesi Shipman DO [address] [place] [address] PCP - General FAMILY PRACTICE 08/08/19 documented as of this encounter
--- OUTSIDE RECORDS SUMMARY | 2024-10-23 17:48 | XMS_ITS | Encounter Summary ---
Author Organization [facility] Address [address] [place] [address]. 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
--- OUTSIDE RECORDS SUMMARY | 2024-10-23 17:48 | XMS_ITS | Encounter Summary ---
Author Organization [facility] Address [address] [place] [address]. [place] [address] Care Team Providers Care Pile Operator Name Role Phone Kwesi Shipman DO Primary Care Provider + Encounter Details Date Type Department Care Team (Latest Contact Info) Description 11/29/2019 Scan HEALTH INFO [facility] Scanned, Documents Social [...] on filedocumented in this encounter Care Teams Pile Operator Relationship Specialty Start Date End Date Kwesi Shipman DO [address] [place] [address] PCP - General FAMILY PRACTICE 08/08/19 documented as of this encounter
--- OUTSIDE RECORDS SUMMARY | 2024-10-23 17:48 | XMS_ITS | Encounter Summary ---
Author Organization [facility] Address [address] [place] [address]. 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 No / Unsure 05/24/2020 9:23 AM CDT documented as of this encounter Last Filed Vital Signs Vital Sign Reading Time Taken Comments Blood Pressure 102/74 05/24/2020 9:27 AM CDT Pulse 68 05/24/2020 9:27 AM CDT Temperature 36.8 ??C (98.3 ??F) 05/24/2020 9:27 AM CD T Respiratory Rate 16 05/24/2020 9:27 AM CDT Oxygen Saturation 98% 05/24/2020 9:27 AM CDT Inhaled Oxygen Concentration - - Weight 97.2 kg (214 lb 3.2 oz) 05/24/2020 9:27 A M CDT Height 172.7 cm (5' 8 ) 05/24/2020 9:27 AM CDT Body Mass Index 32.57 05/24/2020 9:27 AM CDT documented in this encounter Progress Notes * Kwesi Shipman, - 05/24/2020 9:20 AM CDT Images from the original note were not included. GENERAL OFFICE VISIT Encounter Date: 05/24/2020 Chief Complaint: 25-year-old male presents for Rectal Problem (recurrent since childhood ) HPI: Pt has hx of hemorrhoids. Pt states he was mildly constipated and had some bleeding with a large bowel movement. Pt denies any pain with this. He notes it was BRBPR and was not black stools. He has had similar presentation in the past which has improved with conservative management. Pt has hx of psychiatric conditions. He states he was having some issues with DCF[facility] regarding his psychiatric conditions. He hasn't been taking any medication. He is trying to put himself in situations that do not trigger his PTSD. He has been doing rehabilitation and has made many lifestyle changes. Review of Systems Constitutional: Negative for fever. Respiratory: Negative for shortness of breath. Gastrointestinal: Positive for constipation. Negative for abdominal pain, diarrhea, melena, nausea and vomiting. See HPI Psychiatric/Behavioral: Has hx of multiple conditions Patient Active Problem List Diagnosis ??? Severe [...] Not on file Occupational History ??? 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 Financial resource strain: Not on file ??? Food insecurity: Worry: Not on file Inability: Not on file ??? Transportation needs: Medical: Not on file Non-medical: Not on file Tobacco Use ??? Smoking status: Former Smoker Packs/day: 0.50 Years: 5.00 Pack years: 2.50 Types: Cigarettes Last attempt to quit: 06/08/2019 Years since quittin.9 ??? Smokeless tobacco: Never Used Substance and [...] file Gets together: Not on file Attends sabianism service: Not on file Active member of [...] Social History Narrative ??? Not on file Immunization History Administered Date(s) Administered ??? Dtap 07/11/1997 ??? Dtp 1996, 1996, 1996 ??? HPV4 (Gardasil) 04/18/2011, 06/26/2011, 10/27/2011 ??? Hepatitis B Pediatric 1996, 1996, 1996 ??? Hib 1996, 1996, 1996, 07/11/1997 ??? Influenza Adult (Generic) 06/26/2011 ??? MMR 07/11/1997 ??? Opv 1996, 1996, 1996 ??? Varicella Vaccine 03/15/1997, 04/18/2011 Current Outpatient Medications Medication Sig Dispense Refill ??? hydrocortisone (ANUSOL-HC) 2.5 % rectal cream Place rectally 2 (two) times daily for 14 days. 28 g 0 ??? carBAMazepine 200 MG tablet ??? duloxetine 30 MG capsule Take 1 [...] File Prior to Visit Medication Sig ??? carBAMazepine 200 MG tablet ??? duloxetine 30 MG capsule Take 1 capsule (30 mg total) by mouth daily. ??? hydrOXYzine 50 MG tablet TK 1 TO 2 TS PO Q 8 H PRF ANXIETY ??? naproxen 500 MG tablet Take 1 tablet (500 mg total) by mouth 2 (two) times daily with meals. ??? OLANZapine (ZYPREXA) 5 MG tablet Take 1 tablet (5 mg total) by mouth nightly at bedtime. ??? triamcinolone 0.1 % cream Apply topically 2 (two) times daily. No current facility-administered medications on file prior to visit. No Known Allergies Objective: Filed Vitals: 05/24/20 0927 BP: 102/74 Pulse: 68 Resp: 16 Temp: 98.3 ??F (36.8 ??C) TempSrc: Skin SpO2: 98% Weight: 97.2 kg (214 lb 3.2 oz) Height: 5' 8 (1.727 m) Physical [...] sounds are normal. There is no tenderness. Genitourinary: Genitourinary Comments: Rectal exam refused Neurological: He is alert and oriented to person, place, and time. Nursing note and vitals reviewed. Assessment & Plan: Kwesi was seen today for rectal problem. Diagnoses and all orders for this visit: Hemorrhoids, unspecified hemorrhoid type - hydrocortisone (ANUSOL-HC) 2.5 % rectal cream; Place rectally 2 (two) times daily for 14 days. Severe episode of recurrent major depressive disorder, without psychotic features (CMS/HCC) Discussion/Summary: Symptoms consistent with hemorrhoids. Discussed conservative management for this. If patient has worsening or changing symptoms, he may need to be reevaluated or need to see proctology. Will prescribe Anusol at this time. Will encourage patient to continue with his lifestyle changes, patient needs to take medications as prescribed and continue follow-up with psychiatry. Patient verbalized understanding to all above. Kwesi Shipman DO' documented in this encounter Plan of Treatment Not on file documented as of this encounter Visit Diagnoses Diagnosis Hemorrhoids, unspecified hemorrhoid type- Primary Severe episode of recurrent major depressive disorder, without psychotic features (CMS/HCC [facility]/HCC) documented in this encounter Additional Health Concerns Assessment Noted Time PHQ-9 Depression Total Score: 0 05/24/20 20 9:31 AM CDT documented as of this encounter Care Teams Digital Retoucher Relationship Specialty Start Date End Date Kwesi Shipman DO [address] [place] [address] PCP - General FAMILY PRACTICE 08/08/19 documented as of this encounter
--- OUTSIDE RECORDS SUMMARY | 2024-10-23 17:48 | XMS_ITS | Encounter Summary ---
Author Organization [facility] Address [address] [place] [address]. [place] [address] Care Team Providers Care Candy Polisher Name Role Phone Kwesi Shipman DO Primary Care Provider + Encounter Details Date Type Department Care Team (Late st Contact Info) Description 08/23/2019 2:00 PM SOLDERING INSPECTOR Laboratory Only [facility] Medical Group Family & Internal Medicine [address] [phone] Social History Tobacco Use Types Packs/Day Years [...] Diagnosis Comments COLLECTION VENOUS BLOOD VENIPUNCTURE Routine 08/23/2019 1:52 PM SOLDERING INSPECTOR Annual physical exam Screening for endocrine, metabolic and immunity disorder documented in this encounter Visit Diagnoses Diagnosis Annual physical exam- Primary Routine general medical examination at a health care facility Screening for endocrine, metabolic and immunity disorder documented in this encounter Care Teams Candy Polisher Relationship Specialty Start Date End Date Kwesi Shipman DO [facility] [place] [address] PCP - General FAMILY PRACTICE 08/08/19 documented as of this encounter
--- OUTSIDE RECORDS SUMMARY | 2024-10-23 17:48 | XMS_ITS | Encounter Summary ---
Author Organization [facility] Address [address] [place] [address]. [place] [address] Care Team Providers Care Meat Department Manager Name Role Phone Kwesi Shipman DO Primary Care Provider + Reason for Visit * Reason Onset Date Comments Lab Results 08/25/2019 Encounter Details Date Type Department Care Team (Late st Contact Info) Description 08/25/[address] [facility] Family & Internal Medicine [place] [phone] [place] [address] Kwesi Shipman DO [address] [place] [address] Lab Results Social History Tobacco [...] Progress Notes * Sandra Tobar MA - 08/29/2019 12:31 PM CST Patient notified and v/u TRUCTION PROJECT ASSISTANT * Ritika Pablo RN - 08/26/2019 10:01 AM CST [facility] 08/26/19 TRUCTION PROJECT ASSISTANT * Ritika Pablo RN - 08/25/2019 11:54 AM CST [facility] 08/25/19 TRUCTION PROJECT ASSISTANT * Ritika Pablo RN - 08/25/2019 11:50 AM CST ----- Message from Kwesi Shipman DO sent at 08/25/2019 8:01 AM CONSTRUCTION PROJECT ASSISTANT ----- Only notable abnormality is the low Vitamin D. I'd recommend 2000 IU daily with a recheck of this in 3-6 months. Otherwise labs look okay. Can recheck other labs in 1 year or sooner if needed. TRUCTION PROJECT ASSISTANT documented in this encounter Plan of Treatment Not on file documented as of this encounter Visit Diagnoses Not on filedocumented in this encounter Care Teams Meat Department Manager Relationship Specialty Start Date End Date Kwesi Shipman DO [address] [place] [id number] PCP - General FAMILY PRACTICE 08/08/19 documented as of this encounter
--- OUTSIDE RECORDS SUMMARY | 2024-10-23 17:48 | XMS_ITS | Encounter Summary ---
Author Organization [facility] Address [address] [place] [address]. [place] [address] Care Team Providers Care Fruit Distributor Name Role Phone Kwesi Shipman DO Primary Care Provider + Reason for Visit * Reason Comments Follow Up Depression Rash Encounter Details Date Type Department Care Team (Late st Contact Info) Description 12/14/2019 2:40 PM INFO ANALYST Office Visit [facility] Family & Internal Medicine [id number] [place] [address] Kwesi Shipman DO [address] [place] [address] [phone] Follow Up; Depression; Rash Social History Tobacco Use Types Packs/Day Years [...] Sign Reading Time Taken Comments Blood Pressure 110/62 12/14/2019 2:41 PM INFO ANALYST Pulse 65 12/14/2019 2:41 PM INFO ANALYST Temperature 36.5 ??C (97.7 ??F) 12/14/2019 2:41 PM CS T Respiratory Rate 16 12/14/2019 2:41 PM INFO ANALYST Oxygen Saturation 97% 12/14/2019 2:41 PM INFO ANALYST Inhaled Oxygen Concentration - - Weight 110.3 kg (243 lb 1 oz) 12/14/2019 2:41 PM INFO ANALYST Height 172.7 cm (5' 8 ) 12/14/2019 2:41 PM INFO ANALYST Body Mass Index 36.96 12/14/2019 2:41 PM INFO ANALYST documented in this encounter Progress Notes * Kwesirebeca Shipman, DO - 12/14/2019 2:40 PM CST Images from the original note were not included. GENERAL OFFICE VISIT Encounter Date: 12/14/2019 Chief Complaint: 24-year-old male presents for Follow Up; Depression; and Rash HPI: Pt presents for depression. Pt is seeing Shantel at [facility]. Pt saw them towards the end of October. Pt is currently on Zyprexa, Cymbalta, and hydroxyzine prn. He will be seeing them again later this week. He is doing well on his current Pt has hx of rash that we have treated with triamcinolone cream. It is doing well at this time whenit appears and he uses it temporarily. He is requesting a refill today. Review of Systems Constitutional: Negative for fever. Skin: See HPI Psychiatric/Behavioral: See HPI Patient Active [...] Last attempt to quit: 06/08/2019 Years since quittin.5 ??? Smokeless tobacco: Never Used Substance and [...] 2 (two) times daily. 45 g 1 ??? OLANZapine (ZYPREXA) 5 MG tablet Take 1 tablet (5 mg total) by mouth nightly at bedtime. 30 tablet 0 No current facility-administered medications for this [...] mg total) by mouth nightly at bedtime. No current facility-administered medications on file prior to visit. No Known Allergies Objective: Filed Vitals: 12/14/19 1441 BP: 110/62 Pulse: 65 Resp: 16 Temp: 97.7 ??F (36.5 ??C) SpO2: 97% Weight: 110.3 kg (243 lb 1 oz) Height: 5' 8 (1.727 m) Physical [...] are normal. There is no tenderness. Skin: Rash is not present today Nursing note and vitals reviewed. Assessment & Plan: Kwesi was seen today for follow up, depression and rash. Diagnoses and all orders for this visit: Severe episode of recurrent major depressive disorder, without psychotic features (CMS/HCC) Rash - triamcinolone 0.1 % cream; Apply topically 2 (two) times daily. PTSD (post-traumatic stress disorder) Anxiety Vitamin D deficiency - VITAMIN D, 25 OH; Future Discussion/Summary: Continue f/u with [facility]. Continue triamcinolone prn. Will reorder Vitamin D at this time. Will base f/u on these results, but likely 3-6 months. Pt v/u. Time Spent: Greater than or equal to 15 minutes were spent in direct patient consultation and the majority of that time (>50%) was spent on counseling and coordination of care. Please see Assessment & Plan for specific topics discussed during counseling and coordination of care. Kwesi Shipman DO documented in this encounter Plan of Treatment Not on file documented as of this encounter Visit Diagnoses Diagnosis Severe episode of recurrent major depressive disorder, without psychotic features ([facility])- Primary PTSD (post-traumatic stress disorder) Posttraumatic stress disorder Anxiety Anxiety state, unspecified Rash Rash and other nonspecific skin eruption Vitamin D deficiency Unspecified vitamin D deficiency documented in this encounter Care Teams Fruit Distributor Relationship Specialty Start Date End Date Kwesi Shipman DO [address] [place] [phone] PCP - General FAMILY PRACTICE 08/08/19 documented as of this encounter
--- OUTSIDE RECORDS SUMMARY | 2024-10-23 17:48 | XMS_ITS | Encounter Summary ---
Author Organization [facility] Address [address] [place] [address]. [place] [address] Care Team Providers Care Training Designer Name Role Phone Kwesi Shipman DO Primary Care Provider + Encounter Details Date Type Department Care Team (Latest Contact Info) Description 12/05/2019 Scan HEALTH INFO SRVCS Scanned, Documents Social [...] on filedocumented in this encounter Care Teams Training Designer Relationship Specialty Start Date End Date Kwesi Shipman DO [address] [place] [phone] PCP - General FAMILY PRACTICE 08/08/19 documented as of this encounter
--- OUTSIDE RECORDS SUMMARY | 2024-10-23 17:48 | XMS_ITS | Encounter Summary ---
Author Organization [facility] Address [address] [place] [address]. 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 No / Unsure 12/18/2022 8:53 AM SUPERVISOR ENDLESS TRACK VEHICLE documented as of this encounter Plan of Treatment Not on file documented as of this encounter Procedures Procedure Name Priority Date/Time Associated Diagnosis Comments COLLECTION VENOUS BLOOD VENIPUNCTURE Routine 12/18/2022 9:10 AM SUPERVISOR ENDLESS TRACK VEHICLE Need for hepatitis C screening test Encounter for preventative adult health care examination Screening for lipid disorders Screening for endocrine, metabolic and immunity disorder Vitamin D deficiency TSH W/REFLEX Routine 12/18/2022 9:09 AM SUPERVISOR ENDLESS TRACK VEHICLE Encounter for preventative adult health care examination Screening for lipid disorders Screening for endocrine, metabolic and immunity disorder VITAMIN B-12 Routine 12/18/2022 9:09 AM SUPERVISOR ENDLESS TRACK VEHICLE Encounter for preventative adult health care examination Screening for lipid disorders Screening for endocrine, metabolic and immunity disorder COMPREHENSIVE METABOLIC PANEL Routine 12/18/2022 9:09 AM SUPERVISOR ENDLESS TRACK VEHICLE Encounter for preventative adult health care examination Screening for lipid disorders Screening for endocrine, metabolic and immunity disorder LIPID PANEL Routine 12/18/2022 9:09 AM SUPERVISOR ENDLESS TRACK VEHICLE Encounter for preventative adult health care examination Screening for lipid disorders Screening for endocrine, metabolic and immunity disorder HEPATITIS C ANTIBODY Routine 12/18/2022 9:09 AM SUPERVISOR ENDLESS TRACK VEHICLE Need for hepatitis C screening test CBC W/DIFF AUTOMATED Routine 12/18/2022 9:09 AM SUPERVISOR ENDLESS TRACK VEHICLE Encounter for preventative adult health care examination Screening for lipid disorders Screening for endocrine, metabolic and immunity disorder VITAMIN D, 25 OH Routine 12/18/2022 9:09 AM SUPERVISOR ENDLESS TRACK VEHICLE Encounter for preventative adult health care examination Screening for lipid disorders Screening for endocrine, metabolic and immunity disorder Vitamin D deficiency documented in this encounter Results * (ABNORMAL) CBC W/DIFF AUTOMATED (12/18/2022 9:09 AM SUPERVISOR ENDLESS TRACK VEHICLE) WBC 8.65 4.00 - 10.80 x10'3/uL 12/18/2022 2:33 PM SUPERVISOR ENDLESS TRACK VEHICLE [facility] RBC 5.28 4.50 - 6.10 x10'6/uL 12/18/2022 2:33 PM [facility] HGB 16.6 13.0 - 18.0 G/DL 12/18/2022 2:33 PM [facility] HCT 48.3 37.0 - 52.0 % 12/18/2022 2:33 PM [facility] MCV 91.5 78.0 - 100.0 FL 12/18/2022 2:33 PM [facility] MCH 31.4(H) 27.0 - 31.0 PG 12/18/2022 2:33 PM [facility] MCHC 34.4 33.0 - 36.0 G/DL 12/18/2022 2:33 PM [facility] RDW 11.7 11.5 - 14.5 % 12/18/2022 2:33 PM [facility] PLT 298 150 - 350 x10'3/uL 12/18/2022 2:33 PM [facility] MPV 9.2 7.4 - 10.4 FL 12/18/2022 2:33 PM [facility] DIFFERENTIAL TYPE AUTOMATED DIFFERENTIAL 12/18/2022 2:33 PM [facility] NEUTROPHILS % 62.7 % 12/18/2022 2:33 PM [facility] LYMPHOCYTES % 27.9 % 12/18/2022 2:33 PM [facility] MONOCYTES % 6.7 % 12/18/2022 2:33 PM [facility] EOSINOPHILS % 2.3 % 12/18/2022 2:33 PM [facility] BASOPHILS % 0.3 % 12/18/2022 2:33 PM [facility] IMMATURE GRANS % 0.1 % 12/18/2022 2:33 PM SUPERVISOR ENDLESS TRACK VEHICLE [facility] ABS. NEUTROPHILS 5.42 1.60 - 8.30 x10'3/uL 12/18/2022 2:33 PM SUPERVISOR ENDLESS TRACK VEHICLE [facility] ABS. LYMPHOCYTES 2.41 0.80 - 4.70 x10'3/uL 12/18/2022 2:33 PM SUPERVISOR ENDLESS TRACK VEHICLE [facility] ABS. MONOCYTES 0.58 0.00 - 1.50 x10'3/uL 12/18/2022 2:33 PM SUPERVISOR ENDLESS TRACK VEHICLE [facility] ABS. EOSINOPHILS 0.20 0.00 - 0.40 x10'3/uL 12/18/2022 2:33 PM SUPERVISOR ENDLESS TRACK VEHICLE [facility] ABS. BASOPHILS 0.03 0.00 - 0.20 x10'3/uL 12/18/2022 2:33 PM SUPERVISOR ENDLESS TRACK VEHICLE [facility] ABS. IMMATURE GRANULOCYTES 0.01 0.00 - 0.03 x10'3/uL 12/18/2022 2:33 PM SUPERVISOR ENDLESS TRACK VEHICLE [facility] 12/18/2022 9:09 AM SUPERVISOR ENDLESS TRACK VEHICLE us Kwesi Shipman DO LABORATORY Final Re sult [facility] [address] [place] [address], * (ABNORMAL) COMPREHENSIVE METABOLIC PANEL (12/18/2022 9:09 AM SUPERVISOR ENDLESS TRACK VEHICLE) Pathologist [facility] SODIUM S/P/B 141 136 - 145 MMOL/L 12/18/2022 3:31 PM [facility] POTASSIUM S/P/B 3.4(L) 3.5 - 5.1 MMOL/L 12/18/2022 3:31 PM [facility] CHLORIDE S/P/B 100 98 - 107 MMOL/L 12/18/2022 3:31 PM SUPERVISOR ENDLESS TRACK VEHICLE [facility] CO2 30.2 21 - 32 MMOL/L 12/18/2022 3:31 PM [facility] GLUCOSE 87 70 - 99 MG/DL 12/18/2022 3:31 PM [facility] BUN 10 7 - 18 MG/DL 12/18/2022 3:31 PM [facility] CREATININE S/P/B 0.80 0.70 - 1.30 MG/DL 12/18/2022 3:31 PM [facility] CALCIUM S/P/B 8.5 8.4 - 10.5 MG/DL 12/18/2022 3:31 PM [facility] BILIRUBIN TOTAL S/P/B 0.6 0.2 - 1.0 MG/DL 12/18/2022 3:31 PM [facility] ALKALINE PHOSPHATASE S/P/B 79 45 - 115 U/L 12/18/2022 3:31 PM [facility] AST 20 15 - 37 U/L 12/18/2022 3:31 PM [facility] ALT 27 16 - 63 U/L 12/18/2022 3:31 PM [facility] TOTAL PROTEIN S/P/B 7.1 6.4 - 8.2 G/DL 12/18/2022 3:31 PM [facility] ALBUMIN S/P/B 4.3 3.4 - 5.0 G/DL 12/18/2022 3:31 PM [facility] ANION GAP 10.8 5 - 15 MMOL/L 12/18/2022 3:31 PM [facility] Comment:REFERENCE RANGE NOT ESTABLISHED OSMOLALITY (CALC) 290 MOSM/KG 023 3:31 PM [facility] Comment:REFERENCE RANGE NOT ESTABLISHED GFR ESTIMATE >90 >90 ML/MIN/1. 73 M2 12/18/2022 3:31 PM [facility] GFR NOTES GFR REFERENCE S: 12/18/2022 3:31 PM SUPERVISOR ENDLESS TRACK VEHICLE [facility] Comment: THE ESTIMATED GFR IS CALCULATED [...] FAILURE: <15 ml/min/1.73 m2 12/18/2022 9:09 AM SUPERVISOR ENDLESS TRACK VEHICLE Kwesi Shipman LABORATORY Final Re sult Performing Organization Address City/[facility]/ZIP Co de Phone Number [facility] [address] [place] [address], [place] [phone] * TSH W/REFLEX (12/18/2022 9:09 AM SUPERVISOR ENDLESS TRACK VEHICLE) TSH 1.995 0.358 - 3.740 uIU/ML 12/18/2022 3:31 PM SUPERVISOR ENDLESS TRACK VEHICLE [facility] 12/18/2022 9:09 AM SUPERVISOR ENDLESS TRACK VEHICLE [facility] Dayami Shipman LABORATORY Final Re sult Performing Organization Address City/[facility]/ZIP Co de Phone Number [facility] [address] [place] [address], [place] [phone] * LIPID PANEL (12/18/2022 9:09 AM SUPERVISOR ENDLESS TRACK VEHICLE) CHOLESTEROL 140 <200 MG/DL 12/18/2022 3:31 PM SUPERVISOR ENDLESS TRACK VEHICLE [facility] TRIGLYCERIDES 42 <150 MG/DL 12/18/2022 3:31 PM [facility] HDL 58 >40 MG/DL 12/18/2022 3:31 PM [facility] LDL-C 74 <100 MG/DL 12/18/2022 3:31 PM [facility] VLDL CALCULATION 8 5 - 28 MG/DL 12/18/2022 3:31 PM [facility] CHOL/HDL RATIO 2.4 0.0 - 4.0 12/18/2022 3:31 PM [facility] LDL/HDL 1.3 0.41 - 2.13 12/18/2022 3:31 PM [facility] NON HDL CHOLESTEROL 82 <140 MG/DL 12/18/2022 3:31 PM [facility] 12/18/2022 9:09 AM SUPERVISOR ENDLESS TRACK VEHICLE Kwesi Shipman DO LABORATORY Final Re sult Performing Organization Address [facility] Co de Phone Number [facility] [address] [place] [phone], * (ABNORMAL) VITAMIN D, 25 OH (12/18/2022 9:09 AM SUPERVISOR ENDLESS TRACK VEHICLE) Pathologist [facility] VITAMIN D 25 HYDROXY TOTAL S/P/B 17.7(L) 30 - 100 NG/ML 12/18/2022 3:31 PM SUPERVISOR ENDLESS TRACK VEHICLE [facility] Comment: ? DEFICIENT ??<20 ?INSUFFICIENT 20-30 ?SUFFICIENT 30-100 12/18/2022 9:09 AM SUPERVISOR ENDLESS TRACK VEHICLE Kwesi Shipman DO LABORATORY Final Re sult Performing Organization Address City/[facility]/ZIP Co de Phone Number [facility] [address] [place] [address], * VITAMIN B-12 (12/18/2022 9:09 AM SUPERVISOR ENDLESS TRACK VEHICLE) Pathologist [facility] VITAMIN B12 S/P/B 390 193 - 986 PG/ML 12/18/2022 3:31 PM SUPERVISOR ENDLESS TRACK VEHICLE [facility] 12/18/2022 9:09 AM SUPERVISOR ENDLESS TRACK VEHICLE Kwesi Shipman DO LABORATORY Final Re sult [facility] [address] [place] [address], * HEPATITIS C ANTIBODY ([facility] ONLY) (12/18/2022 9:09 AM SUPERVISOR ENDLESS TRACK VEHICLE) [facility] HEPATITIS C AB NON-REACTI VE NON-REACT HIRO 12/18/2022 6:20 PM SUPERVISOR ENDLESS TRACK VEHICLE [facility] Comment: ANTIBODIES TO HCV NOT DETECTED. DOES NOT EXCLUDE THE POSSIBILITY OF EXPOSURE TO HCV. 12/18/2022 9:09 AM SUPERVISOR ENDLESS TRACK VEHICLE Kwesi Shipman DO LABORATORY Final Re sult [facility] [address] [place] [address], [phone] documented in this encounter Visit Diagnoses Diagnosis Need for hepatitis C screening test Special screening examination for other specified viral diseases Encounter for preventative adult health care examination Screening for lipid disorders Screening for endocrine, metabolic and immunity disorder Vitamin D deficiency Unspecified vitamin D deficiency documented in this encounter Additional Health Concerns Assessment Noted Time PHQ-9 Depression Total Score: 12 04/03/ 021 2:00 PM CDT documented as of this encounter Care Teams Document Review Specialist Relationship Specialty Start Date End Date Kwesi Shipman DO [address] [place] [address] PCP - General FAMILY PRACTICE 08/08/19 documented as of this encounter
--- OUTSIDE RECORDS SUMMARY | 2024-10-23 17:49 | XMS_ITS | Encounter Summary ---
Author Organization [facility] Address [address] [place] [address]. [place] [address] Care Team Providers Care Flatbed Press Operator Name Role Phone Kwesi Shipman DO Primary Care Provider + Encounter Details Date Type Department Care Team (Latest Contact Info) Description 06/17/2019 Scan HEALTH INFO SRVCS Scanned, Documents Social History Tobacco Use Types Packs/Day Years Used Date Smoking Tobacco: Never Assessed AUDIT-C Answer Date Recorded Frequency of Alcohol [...] on filedocumented in this encounter Care Teams Flatbed Press Operator Relationship Specialty Start Date End Date Kwesi Shipman DO [address] [place] [phone] PCP - General FAMILY PRACTICE 08/08/19 documented as of this encounter
--- OUTSIDE RECORDS SUMMARY | 2024-10-23 20:20 | XMS_ITS | Clinical Summary ---
Author Organization [facility] Address [address] [place] [address]. [place] [address] Care Team Providers Care Aircraft Engine Dismantler Name Role Phone Ramonita Kwesi Stock DO Primary Care Provider + Allergies No known active allergies Medications triamcinolone (KENALOG) 0.1 % creamIndications :Rash APPLY TOPICALLY TO THE AFFECTED AREA TWICE DAILY 45 g 2 Active Multiple Vitamins-Mineral s (MULTIVITAL OR) Active sertraline (ZOLOFT) 50 MG tabletIndication s:Severe episode of recurrent major depressive disorder, without psychotic features ([facility]) Take 1 tablet (50 mg total) [...] 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 DOES NOT EXCLUDE THE POSSIBILITY OF EXPOSURE TO HCV. 12/18/2022 9:09 AM CONTACT LENS INSPECTOR Kwesi Shipman DO LABORATORY Final Re sult [facility] [address] [place] [address], [place] [phone] from Last 3 Months or Most Recently Relevant to Health Maintenance [id number] Care Teams Aircraft Engine Dismantler Relationship Specialty Start Date End Date Kwesi Shipman DO [facility] [place] [place] [address] PCP - General FAMILY PRACTICE 08/08/19
--- OUTSIDE RECORDS SUMMARY | 2024-10-23 20:21 | XMS_ITS | Encounter Summary ---
Author Organization [facility] Address [address] [place] [address]. [place] [address] Care Team Providers Care Undergraduate Internship Name Role Phone Kwesi Shipman DO Primary Care Provider + Reason for Referral * Consultation/Treatment (Routine) - Closed Specialty Diagnoses / Procedures Referred By Cont t Referred To Contact PAIN MANAGEMENT Diagnoses Chronic bilateral low back pain without sciatica Abnormal MRI, lumbar spine Kwesi Shipman DO [address] [place] [address] Phone: tel: fax: Referral ID Status Reason Start Date Expiration Date V isits Requested Visits Authorized [id number] Closed Specialty Services 12/06/2019 01/05/2021 1 1 ULATING MACHINE OPERATOR Reason for Visit * Reason Onset Date Comments Referral 12/06/2019 Encounter Details Date Type Department Care Team (Late st Contact Info) Description 12/06/2019 Telephone [facility] Family & Internal Medicine [facility] [address] [place] [address] Kwesi Shipman DO [address] [place] [address] Referral Social History Tobacco Use [...] 12/06/2019 2:25 PM CST New referral placed ULATING MACHINE OPERATOR * Kwesi Shipman DO - 12/06/2019 12:07 PM CST That is fine. Thank you for the update. ULATING MACHINE OPERATOR * Toña Chandler - 12/06/2019 10:04 AM CST Pt needs new referral for Pain mgmt to HS please. Did not like current pain mgmt provider, Rylee. Also fyi that pt is seeing psych and they will take over psych pain meds. ULATING MACHINE OPERATOR documented in this encounter Plan of [...] system documented in this encounter Care Teams Undergraduate Internship Relationship Specialty Start Date End Date Kwesi Shipman DO [address] [place] [address] PCP - General FAMILY PRACTICE 08/08/19 documented as of this encounter
--- OUTSIDE RECORDS SUMMARY | 2024-10-23 20:21 | XMS_ITS | Encounter Summary ---
Author Organization [facility] Address [address] [place] [address]. [place] [address] Care Team Providers Care Rehab Nursing Tech Name Role Phone Kwesi Shipman DO Primary Care Provider + Reason for Visit * Reason Onset Date Comments Medication Request 09/14/2019 Encounter Details Date Type Department Care Team (Late st Contact Info) Description 09/14/2019 Telephone [facility] Medical Group Family & Internal Medicine [phone] [place] [address] Kwesi Shipman DO [address] [place], [place] [phone] Medication Request Social History Tobacco Use Types [...] on: 09/20/2019 09:32 AM Modules accepted: Orders FREADER * Norma Cifuentes MA - 09/20/2019 9:31 AM CST Patients mom informed of ok for MRI. MRI ordered for [place] per her request. tn FREADER * Ritika Pablo RN - 09/20/2019 8:59 AM CST LMTC 09/20/19 FREADER * Patsy Sepulveda MA - 09/19/2019 4:58 PM CST LM for pt. 09/19/19 FREADER * Kwesi Shipman DO - 09/15/2019 3:14 PM CST Pt's XR results were just read. Pt does show some narrowing at L5-S1 in disc space. OK to do MRI ofLumbar Spine w/o contrast. FREADER * Patsy Sepulveda MA - 09/14/2019 1:21 [...] What would you like me to order? FREADER * Kwesi Shipman DO - 09/14/2019 12:52 [...] relay this information to the patient himself. FREADER * Ronda Schaffer - 09/14/2019 12:41 PM CST Pt mother calling in for muscle relaxer needs refilled. Pt mother also asking MRI orders to see what is actually wrong with his back. FREADER documented in this encounter Plan of Treatment Not on file documented as of this encounter Visit Diagnoses Diagnosis Chronic bilateral low back pain without sciatica- Primary documented in this encounter Care Teams Rehab Nursing Tech Relationship Specialty Start Date End Date Kwesi Shipman DO [address] [place] [address] PCP - General FAMILY PRACTICE 08/08/19 documented as of this encounter
--- OUTSIDE RECORDS SUMMARY | 2024-10-23 20:21 | XMS_ITS | Encounter Summary ---
Author Organization [facility] Address [address] [place] [address]. 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
--- OUTSIDE RECORDS SUMMARY | 2024-10-23 20:21 | XMS_ITS | Encounter Summary ---
Author Organization [facility] Address [address] [place] [address]. 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
--- OUTSIDE RECORDS SUMMARY | 2024-10-23 20:21 | XMS_ITS | Encounter Summary ---
Author Organization [facility] Address [address] [place] [address]. [place], [place] [address] [place], [place] [id number] Care Team Providers Care Defensive Fire Control Systems Operator Name Role Phone Kwesi Shipman DO Primary Care Provider + Encounter Details Date Type Department Care Team (Latest Contact Info) Description 02/16/2020 10:16 AM CDT - 02/16/2020 11:59 PM CDT Hospital Encounter [facility] [place] [address] Kwesi Shipman DO [facility] [place], [place] [id number] Discharge Disposition: Home or Self Care (Routine [...] D DU ng/mL 02/16/2020 11:02 AM CDT [facility] Comment: TESTING PERFORMED ON [employer] ACL TOP 300 ANALYZER. NOTE: RESULTS OF [...] Kwesi Shipman DO LABORATORY Final Re sult [facility] [address] [place] [address], documented in this encounter Visit Diagnoses Diagnosis Swelling of left hand documented in this encounter Care Teams Defensive Fire Control Systems Operator Relationship Specialty Start Date End Date Kwesi Shipman DO [address] [place] [address] PCP - General FAMILY PRACTICE 08/08/19 documented as of this encounter
--- OUTSIDE RECORDS SUMMARY | 2024-10-23 20:21 | XMS_ITS | Encounter Summary ---
Author Organization [facility] Address [address] [place] [address]. [place] [address] Care Team Providers Care Food And Beverage Outlets Manager Name Role Phone Kwesi Shipman DO Primary Care Provider + Reason for Visit * Reason Onset Date Comments Medication 11/07/2019 Encounter Details Date Type Department Care Team (Late st Contact Info) Description 11/07/2019 Telephone [facility] Medical Group Family & Internal Medicine [address] [place] [phone] Kwesi Shipman DO [address] [place] [address] Medication Social History Tobacco Use [...] - 11/09/2019 2:33 PM CST rx sent. SION PHARMACIST * Kwesi Shipman DO - 11/07/2019 3:47 PM CST As long as he will see psych in the future, we can do a refill of it for now. Can do 30 days of each with a refill. SION PHARMACIST * KOREY Dillon - 11/07/2019 3:21 PM CST Meant to go to you SION PHARMACIST * Norma Cifuentes MA - 11/07/2019 3:12 PM CST Requesting refill on Visteral 25mg 2 caps q 4 hours prn anxiety and Zyrpexa 5 mg qhs . [facility] prescribed by [facility]. Mom is wanting to know if you are comfortable filling. States he will see psych as out patient. [facility] SION PHARMACIST documented in this encounter Plan of Treatment Not on file documented as of this encounter Visit Diagnoses Diagnosis Severe episode of recurrent major depressive disorder, without psychotic features ([facility]/HCC [facility]/HCC)- Primary documented in this encounter Care Teams Food And Beverage Outlets Manager Relationship Specialty Start Date End Date Kwesi Shipman DO [address] [place] [address] PCP - General FAMILY PRACTICE 08/08/19 documented as of this encounter
--- OUTSIDE RECORDS SUMMARY | 2024-10-23 20:21 | XMS_ITS | Encounter Summary ---
Author Organization [facility] Address [address] [place] [address]. [place] [address] Care Team Providers Care Adjunct Professor Name Role Phone Kwesi Nnues DO Primary Care Provider + Reason for Referral * Physical Medicine (Routine) - Closed Specialty Diagnoses / Procedures Referred By Jamison vegas Referred To Contact PHYSICAL THERAPY / [facility] Physical Therapy Diagnoses Chronic left shoulder pain Procedures OFFICE/OUTPT VISIT,NEW,LEVL III OFFICE/OUTPT VISIT,NEW,LEVL IV OFFICE/OUTPT VISIT,NEW,LEVL V OFFICE/OUTPT VISIT,EST,LEVL III OFFICE/OUTPT VISIT,EST,LEVL IV OFFICE/OUTPT VISIT,EST,LEVL V Kwesi Nunes DO [address] [place] [address] Phone: tel: fax: [facility] [address] [facility] [address] [place] [address] Phone: tel: fax: Referral ID Status Reason Start Date Expiration Date V isits Requested Visits Authorized [id number] Closed Physical Therapy 12/11/2022 10/11/2023 12 12 UTER REPAIRER * Surgical (Routine) - Closed Specialty Diagnoses / Procedures Referred By Jamison vegas Referred To Contact SURGERY Diagnoses Umbilical hernia without obstruction and without gangrene Procedures OFFICE/OUTPT VISIT,NEW,LEVL III OFFICE/OUTPT VISIT,NEW,LEVL IV OFFICE/OUTPT VISIT,NEW,LEVL V OFFICE/OUTPT VISIT,EST,LEVL III OFFICE/OUTPT VISIT,EST,LEVL IV OFFICE/OUTPT VISIT,EST,LEVL V Kwesi Nunes DO [address] [place] [address] Phone: tel: fax: [facility] [address] [place] [address] Phone: tel: fax: Referral ID Status Reason Start Date Expiration Date Visits Re quested Visits Authorized [id number] Closed 12/11/2022 01/11/2024 99 99 Scheduling Instructions [facility], whoever takes insurance UTER REPAIRER Reason for Visit * Reason Comments Annual [...] st Contact Info) Description 12/11/2022 1:20 PM COMPUTER REPAIRER Office Visit [facility] Medical Group Family & Internal Medicine [facility] [address] [place] [address] Kwesi Nunes DO [address] [place] [address] Annual (The patient presents for annual visit. 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 No / Unsure 12/11/2022 1:09 PM COMPUTER REPAIRER documented as of this encounter Last Filed Vital Signs Vital Sign Reading Time Taken Comments Blood Pressure 122/80 12/11/2022 1:25 PM COMPUTER REPAIRER Pulse 91 12/11/2022 1:25 PM COMPUTER REPAIRER Temperature 37.2 ??C (98.9 ??F) 12/11/2022 1:25 PM CS T Respiratory Rate 16 12/11/2022 1:25 PM COMPUTER REPAIRER Oxygen Saturation 98% 12/11/2022 1:25 PM COMPUTER REPAIRER Inhaled Oxygen Concentration - - Weight 89 kg (196 lb 1.6 oz) 12/11/2022 1:25 PM COMPUTER REPAIRER Height 172.7 cm (5' 8 ) 12/11/2022 1:25 PM COMPUTER REPAIRER Body Mass Index 29.82 12/11/2022 1:25 PM COMPUTER REPAIRER documented in this encounter Progress Notes * [...] Not on file Occupational History ??? 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 Smoking [...] the day of the encounter. This includes pphn-zp-iqml and epi-mgub-xf-face time I provided on the day of the encounter & excludes time spent performing separately reportable services. Kwesi Nunes DO UTER REPAIRER documented in this encounter Plan of Treatment Scheduled Referrals Name Type Priority Associated Diagnoses Orde r Schedule Ambulatory referral to General Surgery (OTHER) Referral Routine Umbilical hernia without obstruction and without gangrene Ordered: 12/11/2022 Ambulatory referral to Physical Therapy Referral Routine Chronic left shoulder pain Ordered: 12/11/2022 documented as of this encounter Results * HEPATITIS C ANTIBODY ([facility] ONLY) (12/18/2022 9:09 AM COMPUTER REPAIRER) Pathologist [facility] HEPATITIS C AB NON-REACTI VE NON-REACT HIRO 12/18/2022 6:20 PM COMPUTER REPAIRER [facility] Comment: ANTIBODIES TO HCV NOT DETECTED. DOES NOT EXCLUDE THE POSSIBILITY OF EXPOSURE TO HCV. 12/18/2022 9:09 AM COMPUTER REPAIRER Kwesi Nunes DO LABORATORY Final Re sult [facility] [address] [place] [address], [id number] * VITAMIN B-12 (12/18/2022 9:09 AM COMPUTER REPAIRER) VITAMIN B12 S/P/B 390 193 - 986 PG/ML 12/18/2022 3:31 PM COMPUTER REPAIRER [facility] 12/18/2022 9:09 AM COMPUTER REPAIRER Kwesi Nunes DO LABORATORY Final Re sult [facility] [address] [place] [address], * (ABNORMAL) VITAMIN D, 25 [place] (12/18/2022 9:09 AM COMPUTER REPAIRER) Pathologist [facility] VITAMIN D 25 HYDROXY TOTAL S/P/B 17.7(L) 30 - 100 NG/ML 12/18/2022 3:31 PM [facility] Comment: ? DEFICIENT ??<20 ?INSUFFICIENT 20-30 ?SUFFICIENT 30-100 12/18/2022 9:09 AM COMPUTER REPAIRER Kwesi Nunes DO LABORATORY Final Re sult [facility] [address] [place] [address], * LIPID PANEL (12/18/2022 9:09 AM COMPUTER REPAIRER) [facility] CHOLESTEROL 140 <200 MG/DL 12/18/2022 3:31 PM [facility] TRIGLYCERIDES 42 <150 MG/DL 12/18/2022 3:31 PM [facility] HDL 58 >40 MG/DL 12/18/2022 3:31 PM [facility] LDL-C 74 <100 MG/DL 12/18/2022 3:31 PM [facility] VLDL CALCULATION 8 5 - 28 MG/DL 12/18/2022 3:31 PM [facility] CHOL/HDL RATIO 2.4 0.0 - 4.0 12/18/2022 3:31 PM [facility] LDL/HDL 1.3 0.41 - 2.13 12/18/2022 3:31 PM [facility] NON HDL CHOLESTEROL 82 <140 MG/DL 12/18/2022 3:31 PM COMPUTER REPAIRER [facility] 12/18/2022 9:09 AM COMPUTER REPAIRER Kwesi Nunes LABORATORY Final Re sult Performing Organization Address [facility]/ZIP Co de Phone Number [facility] CARRILLOHUMeliton [place] [address] [place] [address], [place] [phone] * TSH W/REFLEX (12/18/2022 9:09 AM COMPUTER REPAIRER) TSH 1.995 0.358 - 3.740 uIU/ML 12/18/2022 3:31 PM COMPUTER REPAIRER [facility] 12/18/2022 9:09 AM COMPUTER REPAIRER Kwesi Nunes LABORATORY Final Re sult Performing Organization Address [facility] Co de Phone Number [facility] [address] [place] [address], [place] [phone] * (ABNORMAL) COMPREHENSIVE METABOLIC PANEL (12/18/2022 9:09 AM COMPUTER REPAIRER) SODIUM S/P/B 141 136 - 145 MMOL/L 12/18/2022 3:31 PM [facility] POTASSIUM S/P/B 3.4(L) 3.5 - 5.1 MMOL/L 12/18/2022 3:31 PM COMPUTER REPAIRER [facility] CHLORIDE S/P/B 100 98 - 107 MMOL/L 12/18/2022 3:31 PM COMPUTER REPAIRER [facility] CO2 30.2 21 - 32 MMOL/L 12/18/2022 3:31 PM [facility] GLUCOSE 87 70 - 99 MG/DL 12/18/2022 3:31 PM [facility] BUN 10 7 - 18 MG/DL 12/18/2022 3:31 PM [facility] [place] CREATININE S/P/B 0.80 0.70 - 1.30 MG/DL 12/18/2022 3:31 PM [facility] [place] CALCIUM S/P/B 8.5 8.4 - 10.5 MG/DL 12/18/2022 3:31 PM [facility] [place] BILIRUBIN TOTAL S/P/B 0.6 0.2 - 1.0 MG/DL 12/18/2022 3:31 PM [facility] [place] ALKALINE PHOSPHATASE S/P/B 79 45 - 115 U/L 12/18/2022 3:31 PM [facility] [place] AST 20 15 - 37 U/L 12/18/2022 3:31 PM [facility] [place] ALT 27 16 - 63 U/L 12/18/2022 3:[address] [facility], [place] TOTAL PROTEIN S/P/B 7.1 6.4 - 8.2 G/DL 12/18/2022 3:[address] [facility] [place] ALBUMIN S/P/B 4.3 3.4 - 5.0 G/DL 12/18/2022 3:31 PM [facility] [place] ANION GAP 10.8 5 - 15 MMOL/L 12/18/2022 3:31 PM [facility] Comment:REFERENCE RANGE NOT ESTABLISHED OSMOLALITY (CALC) 290 MOSM/KG 023 3:31 PM [facility] Comment:REFERENCE RANGE NOT ESTABLISHED GFR ESTIMATE >90 >90 ML/MIN/1. 73 M2 12/18/2022 3:31 PM [facility] GFR NOTES GFR REFERENCE S: 12/18/2022 3:31 PM [facility] Comment: THE ESTIMATED GFR IS CALCULATED [...] FAILURE: <15 ml/min/1.73 m2 12/18/2022 9:09 AM COMPUTER REPAIRER us Kwesi Nunes DO LABORATORY Final Re sult [facility] [address] [place] [address], * (ABNORMAL) CBC W/DIFF AUTOMATED (12/18/2022 9:09 AM COMPUTER REPAIRER) WBC 8.65 4.00 - 10.80 x10'3/uL 12/18/2022 2:33 PM COMPUTER REPAIRER [facility] RBC 5.28 4.50 - 6.10 x10'6/uL 12/18/2022 2:33 PM COMPUTER REPAIRER [facility] HGB 16.6 13.0 - 18.0 G/DL 12/18/2022 2:33 PM COMPUTER REPAIRER [facility] HCT 48.3 37.0 - 52.0 % 12/18/2022 2:33 PM COMPUTER REPAIRER [facility] MCV 91.5 78.0 - 100.0 FL 12/18/2022 2:33 PM COMPUTER REPAIRER [facility] MCH 31.4(H) 27.0 - 31.0 PG 12/18/2022 2:33 PM COMPUTER REPAIRER [facility] MCHC 34.4 33.0 - 36.0 G/DL 12/18/2022 2:33 PM [facility] RDW 11.7 11.5 - 14.5 % 12/18/2022 2:33 PM COMPUTER REPAIRER [facility] PLT 298 150 - 350 x10'3/uL 12/18/2022 2:33 PM [facility] MPV 9.2 7.4 - 10.4 FL 12/18/2022 2:33 PM [facility] DIFFERENTIAL TYPE AUTOMATED DIFFERENTIAL 12/18/2022 2:33 PM [facility] NEUTROPHILS % 62.7 % 12/18/2022 2:33 PM [facility] LYMPHOCYTES % 27.9 % 12/18/2022 2:33 PM [facility] MONOCYTES % 6.7 % 12/18/2022 2:33 PM [facility] EOSINOPHILS % 2.3 % 12/18/2022 2:33 PM [facility] BASOPHILS % 0.3 % 12/18/2022 2:33 PM [facility] IMMATURE GRANS % 0.1 % 12/18/2022 2:33 PM [facility] ABS. NEUTROPHILS 5.42 1.60 - 8.30 x10'3/uL 12/18/2022 2:33 PM [facility] ABS. LYMPHOCYTES 2.41 0.80 - 4.70 x10'3/uL 12/18/2022 2:33 PM [facility] ABS. MONOCYTES 0.58 0.00 - 1.50 x10'3/uL 12/18/2022 2:33 PM [facility] ABS. EOSINOPHILS 0.20 0.00 - 0.40 x10'3/uL 12/18/2022 2:33 PM [facility] ABS. BASOPHILS 0.03 0.00 - 0.20 x10'3/uL 12/18/2022 2:33 PM [facility] ABS. IMMATURE GRANULOCYTES 0.01 0.00 - 0.03 x10'3/uL 12/18/2022 2:33 PM [facility] 12/18/2022 9:09 AM COMPUTER REPAIRER Kwesi Nunes DO LABORATORY Final Re sult [facility] [address] [place] [address], [place] [phone] * XR CERV SPINE 3V (12/11/2022 2:13 PM COMPUTER REPAIRER) Anatomical Region Laterality Modality Spine Radiographic Breanne ging 12/11/2022 3:32 PM COMPUTER REPAIRER Impressions 12/11/2022 3:33 PM COMPUTER REPAIRER IMPRESSION: 1) No significant radiographic abnormality. If clinically indicated correlation with noncontrast MRI cervical spine may be helpful. Ordered By: KWESI NUNES Interpreted By: Aidan Cobos MD, 12/11/2022 3:32 PM Narrative 12/11/2022 3:33 PM COMPUTER REPAIRER Examination: XR CERV SPINE 3V Exam time: [...] XR SHOULDER LT 3V (12/11/2022 2:13 PM COMPUTER REPAIRER) Anatomical Region Laterality Modality Shoulder Radiographic Breanne ging 12/11/2022 3:31 PM COMPUTER REPAIRER Impressions 12/11/2022 3:32 PM COMPUTER REPAIRER IMPRESSION: 1) No significant radiographic abnormality. If there is clinical concern for rotator cuff, labrum or other soft tissue abnormality correlation with noncontrast MRI left shoulder may be helpful Ordered By: KWESI NUNES Interpreted By: Aidan Cobos MD, 12/11/2022 3:31 PM Narrative 12/11/2022 3:32 PM COMPUTER REPAIRER Examination: XR SHOULDER LT 3V Exam time: [...] documented as of this encounter Care Teams Adjunct Professor Relationship Specialty Start Date End Date Kwesi Nunes DO [address] [place] [address] PCP - General FAMILY PRACTICE 08/08/19 documented as of this encounter
--- OUTSIDE RECORDS SUMMARY | 2024-10-23 20:21 | XMS_ITS | Encounter Summary ---
Author Organization [facility] Address [address] [place] [address]. 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 No / Unsure 12/18/2022 8:53 AM RECREATIONAL SPORTS DIRECTOR documented as of this encounter Progress Notes [...] IU supplementation daily. Potassium is mildly low; [id number] mEq daily for 21 days. Then recheck BMP and magnesium. Other labs are stable and can be repeatedin 1 year. documented in this encounter Plan of Treatment Not on file documented as of this encounter Results * MAGNESIUM (01/14/2023 8:16 AM CDT) MAGNESIUM 1.8 1.8 - 2.4 MG/DL 01/14/2023 3:09 PM CDT [facility] 01/14/2023 8:16 AM CDT us Saumya Nunes DO LABORATORY Final Re sult [facility] [address] [place] [address], * (ABNORMAL) BASIC METABOLIC PANEL (01/14/2023 8:16 AM CDT) [facility] SODIUM S/P/B 141 136 - 145 MMOL/L 01/14/2023 3:09 PM CDT [facility] POTASSIUM S/P/B 3.6 3.5 - 5.1 MMOL/L 01/14/2023 3:09 PM CDT [facility] CHLORIDE S/P/B 105 98 - 107 MMOL/L 01/14/2023 3:09 PM CDT [facility] CO2 26.4 21 - 32 MMOL/L 01/14/2023 3:09 PM CDT [facility] GLUCOSE 113(H) 70 - 99 MG/DL 01/14/2023 3:09 PM CDT [facility] BUN 19(H) 7 - 18 MG/DL 01/14/2023 3:09 PM CDT [facility] CREATININE S/P/B 0.82 0.70 - 1.30 MG/DL 01/14/2023 3:09 PM CDT [facility] CALCIUM S/P/B 8.2(L) 8.4 - 10.5 MG/DL 01/14/2023 3:09 PM CDT [facility] ANION GAP 9.6 5 - 15 MMOL/L 01/14/2023 3:09 PM CDT [facility] Comment:REFERENCE RANGE NOT ESTABLISHED OSMOLALITY (CALC) 295 MOSM/KG 023 3:09 PM CDT [facility] Comment:REFERENCE RANGE NOT ESTABLISHED GFR ESTIMATE >90 >90 ML/MIN/1. 73 M2 01/14/2023 3:09 PM CDT [facility] GFR NOTES GFR REFERENCE S: 01/14/2023 3:09 PM CDT [facility] Comment: THE ESTIMATED GFR IS CALCULATED USING [...] Saumya Nunes DO LABORATORY Final Re sult [facility] [address] [place] [address], documented in this encounter Visit Diagnoses Diagnosis Hypopotassemia- Primary documented in this encounter Additional Health Concerns Assessment Noted Time PHQ-9 Depression Total Score: 12 021 2:00 PM CDT documented as of this encounter Care Teams Picking Supervisor Relationship Specialty Start Date End Date Saumya Nunes DO [address] [place] [address] PCP - General FAMILY PRACTICE 08/08/19 documented as of this encounter
--- OUTSIDE RECORDS SUMMARY | 2024-10-23 20:21 | XMS_ITS | Encounter Summary ---
Author Organization [facility] Address [address] [place] [address]. [place] [address] Care Team Providers Care Glazier Helper Name Role Phone Kwesi Shipman DO Primary Care Provider + Reason for Visit * Reason Comments Establish Care Back Pain x 12 years from inju ry Depression Encounter Details Date Type Department Care Team (Late st Contact Info) Description 08/08/2019 2:20 PM CDT [facility] Family [facility] Internal Medicine [address] [phone] Kwesi Shipman DO [address] [place] [phone] Establish Care; Back Pain (x 12 [...] file Gets together: Not on file Attends congregation service: Not on file Active member of [...] XR THOR SPINE 3V (09/15/2019 11:06 AM STOCK DRIER TENDER) Anatomical Region Laterality Modality Spine Radiographic Breanne ging 09/15/2019 1:25 PM STOCK DRIER TENDER Impressions 09/15/2019 1:25 PM STOCK DRIER TENDER IMPRESSION: 1. No evidence of vertebral body compression deformities. Interpreted By: Ke Perez MD, 09/15/2019 1:25 PM Narrative 09/15/2019 1:25 PM STOCK DRIER TENDER Examination: X-ray thoracic spine, 3 views. Exam [...] XR LUMB SPINE 3V (09/15/2019 11:04 AM STOCK DRIER TENDER) Anatomical Region Laterality Modality Spine Radiographic Breanne ging 09/15/2019 1:24 PM STOCK DRIER TENDER Impressions 09/15/2019 1:25 PM STOCK DRIER TENDER IMPRESSION: 1. Mild lumbar spondylosis. Interpreted By: Ke Perez MD, 09/15/2019 1:24 PM Narrative 09/15/2019 1:25 PM STOCK DRIER TENDER Examination: X-ray lumbar spine, 3 views. Exam [...] VITAMIN D, 25 [place] (08/23/2019 1:41 PM STOCK DRIER TENDER) [facility] VITAMIN D 25 HYDROXY S/P/B 19(L) 30 - 100 NG/ML 08/23/2019 8:18 PM STOCK DRIER TENDER [facility] Comment: ? INTERPRETATION ? DEFICIENT ??<20 ? INSUFFICIENT 20-29 ?SUFFICIENT 30-100 08/23/2019 1:41 PM STOCK DRIER TENDER Kwesi Shipman DO LABORATORY Final Re sult Performing Organization Address City/[facility]/ZIP Co de Phone Number [facility] [address] [place] [phone], * TSH W/REFLEX (08/23/2019 1:41 PM STOCK DRIER TENDER) [facility] TSH 2.520 0.358 - 3.74 uIU/ML 08/23/2019 7:53 PM STOCK DRIER TENDER [facility] Comment: HIGH DOSES OF BIOTIN MAY INTERFERE WITH THIS TEST RESULT. CORRELATION TO CLINICAL HISTORY AND PRESENTATION RECOMMENDED. FREE T4 NOT INDICATED 08/23/2019 1:41 PM STOCK DRIER TENDER Kwesi Shipman DO LABORATORY Final Re sult Performing Organization Address City/[facility]/ZIP Co de Phone Number [facility] [address] [place] [address], [place] [phone] * (ABNORMAL) COMPREHENSIVE METABOLIC PANEL (08/23/2019 1:41 PM STOCK DRIER TENDER) GLUCOSE 74 70 - 99 MG/DL 08/23/2019 7:53 PM [facility] BUN 12 7 - 18 MG/DL 08/23/2019 7:53 PM [facility] CREATININE S/P/B 0.91 0.7 - 1.3 MG/DL 08/23/2019 7:53 PM [facility] SODIUM S/P/B 141 136 - 145 MMOL/L 08/23/2019 7:53 PM [facility] POTASSIUM S/P/B 4.1 3.5 - 5.1 MMOL/L 08/23/2019 7:53 PM [facility] CHLORIDE S/P/B 108 100 - 108 MMOL/L 08/23/2019 7:53 PM [facility] CO2 26.8 21 - 32 MMOL/L 08/23/2019 7:53 PM [facility] CALCIUM S/P/B 8.9 8.5 - 10.1 MG/DL 08/23/2019 7:53 PM [facility] BILIRUBIN TOTAL S/P/B 0.7 0.2 - 1.2 MG/DL 08/23/2019 7:53 PM [facility] TOTAL PROTEIN S/P/B 6.8 6.4 - 8.2 G/DL 08/23/2019 7:53 PM [facility] ALBUMIN S/P/B 4.2 3.4 - 5.0 G/DL 08/23/2019 7:53 PM [facility] AST 14(L) 15 - 37 U/L 08/23/2019 7:53 PM [facility] ALT 24 16 - 60 U/L 08/23/2019 7:53 PM [facility] ALKALINE PHOSPHATASE S/P/B 72 50 - 136 U/L 08/23/2019 7:53 PM STOCK DRIER TENDER [facility] ANION GAP 6.2 5 - 15 MMOL/L 08/23/2019 7:53 PM [facility] BUN CREATININE RATIO 13.2 6 - 26 08/23/2019 7:53 PM [facility] A/G RATIO 1.6 1.0 - 2.0 RATIO 08/23/2019 7:53 PM [facility] EGFR NON-AFR. AMER. >90 >90 ML/MIN/1.7 3 M2 08/23/2019 7:53 PM [facility] EGFR AFR. AMER. >90 >90 ML/MIN/1.7 3 M2 08/23/2019 7:53 PM [facility] Comment: NOTE: eGFR is not calculated for patients <18 years of age. This is an estimated GFR (CKD EPI) and should not be used for calculating drug doses. 08/23/2019 1:41 PM STOCK DRIER TENDER us Kwesi Shipman DO LABORATORY Final Re sult [facility] [address] [place] [address], [place] [phone] * (ABNORMAL) CBC W/DIFF AUTOMATED (08/23/2019 1:41 PM STOCK DRIER TENDER) WBC 8.8 4.5 - 11.0 x10'3/uL 08/23/2019 8:08 PM [facility] RBC 5.47 4.70 - 6.10 x10'6/uL 08/23/2019 8:08 PM [facility] HGB 16.4 14.0 - 18.0 G/DL 08/23/2019 8:08 PM [facility] HCT 50.3 43.0 - 54.0 % 08/23/2019 8:08 PM [facility] MCV 92.0 80.0 - 94.0 FL 08/23/2019 8:08 PM [facility] MCH 30.0 27.0 - 31.0 PG 08/23/2019 8:08 PM [facility] MCHC 32.6 32.0 - 36.0 G/DL 08/23/2019 8:08 PM [facility] RDW 11.9 11.5 - 14.5 % 08/23/2019 8:08 PM [facility] PLT 265 130 - 400 x10'3/uL 08/23/2019 8:08 PM [facility] MPV 10.1 9.3 - 12.2 FL 08/23/2019 8:08 PM [facility] DIFFERENTIAL TYPE AUTOMATED DIFFERENTIAL 08/23/2019 8:08 PM [facility] NEUTROPHILS % 49.6 % 08/23/2019 8:08 PM [facility] LYMPHOCYTES % 35.6 % 08/23/2019 8:08 PM [facility] MONOCYTES % 9.8 % 08/23/2019 8:08 PM [facility] EOSINOPHILS 4.0 % 08/23/2019 8:08 PM [facility] BASOPHILS 0.7 % 08/23/2019 8:08 PM [facility] IMMATURE GRANS % 0.3 % 08/23/20 8:08 PM [facility] ABS. NEUTROPHILS TOTAL 4.35 1.80 - 7.70 x10'3/uL 08/23/2019 8:08 PM [facility] ABS. LYMPHOCYTES 3.12 1.00 - 4.80 x10'3/uL 08/23/2019 8:08 PM [facility] ABS. MONOCYTES 0.86(H) 0.30 - 0.82 x10'3/uL 08/23/2019 8:08 PM STOCK DRIER TENDER [facility] ABS. EOSINOPHILS 0.35 0.04 - 0.54 x10'3/uL 08/23/2019 8:08 PM STOCK DRIER TENDER [facility] ABS. BASOPHILS 0.06 0.01 - 0.08 x10'3/uL 08/23/2019 8:08 PM STOCK DRIER TENDER [facility] ABS. IMMATURE GRANULOCYTES 0.03 0.00 - 0.49 x10'3/uL 08/23/2019 8:08 PM STOCK DRIER TENDER [facility] 08/23/2019 1:41 PM STOCK DRIER TENDER us Kwesi Shipman DO LABORATORY Final Re sult [facility] [address] [place] [address], documented in this encounter Visit Diagnoses Diagnosis [...] disorder documented in this encounter Care Teams Glazier Helper Relationship Specialty Start Date End Date Kwesi Shipman DO [address] [place] [phone] PCP - General FAMILY PRACTICE 08/08/19 documented as of this encounter
--- OUTSIDE RECORDS SUMMARY | 2024-10-23 20:21 | XMS_ITS | Encounter Summary ---
Author Organization [facility] Address [address] [place] [address]. [place] [address] Care Team Providers Care Family Advocate Name Role Phone Kwesi Shipman DO Primary [...] on filedocumented in this encounter Care Teams Family Advocate Relationship Specialty Start Date End Date Kwesi Shipman DO [address] [place] [phone] PCP - General FAMILY PRACTICE 08/08/19 documented as of this encounter
--- OUTSIDE RECORDS SUMMARY | 2024-10-23 20:21 | XMS_ITS | Encounter Summary ---
Author Organization [facility] Address [address] [place] [address]. 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
--- OUTSIDE RECORDS SUMMARY | 2024-10-23 20:21 | XMS_ITS | Encounter Summary ---
Author Organization [facility] Address [address] [place] [address]. 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 Tobacco Use Smoking status: [...] recurrent major depressive disorder, without psychotic features ([facility])- Primary Umbilical hernia without obstruction and without gangrene PTSD (post-traumatic stress disorder) Posttraumatic stress disorder Chronic left shoulder pain Pain in joint, shoulder region Numbness and tingling in left arm Disturbance of skin sensation documented in this encounter Additional Health Concerns Assessment Noted Time PHQ-9 Depression Total Score: 12 021 2:00 PM CDT documented as of this encounter Care Teams Mine Equipment Design Engineer Relationship Specialty Start Date End Date Kwesi Shipman DO [address] [place] [phone] PCP - General FAMILY PRACTICE 08/08/19 documented as of this encounter
--- OUTSIDE RECORDS SUMMARY | 2024-10-23 20:21 | XMS_ITS | Encounter Summary ---
Author Organization [facility] Address [address] [place] [address]. [place] [address] Care Team Providers Care Lead Assembler Name Role Phone Kwesi Shipman DO Primary Care Provider + Reason for Visit * Reason Comments Follow Up Depression Rash Encounter Details Date Type Department Care Team (Late st Contact Info) Description 12/14/2019 2:40 PM NON PROFIT DIRECTOR Office Visit [facility] Family & Internal Medicine [phone] [place] [phone] Kwesi Shipman DO [address] [place] [address] [phone] Follow Up; Depression; Rash Social History Tobacco [...] Comments Blood Pressure 110/62 12/14/2019 2:41 PM NON PROFIT DIRECTOR Pulse 65 12/14/2019 2:41 PM NON PROFIT DIRECTOR Temperature 36.5 ??C (97.7 ??F) 12/14/2019 2:41 PM CS T Respiratory Rate 16 12/14/2019 2:41 PM NON PROFIT DIRECTOR Oxygen Saturation 97% 12/14/2019 2:41 PM NON PROFIT DIRECTOR Inhaled Oxygen Concentration - - Weight 110.3 kg (243 lb 1 oz) 12/14/2019 2:41 PM NON PROFIT DIRECTOR Height 172.7 cm (5' 8 ) 12/14/2019 2:41 PM NON PROFIT DIRECTOR Body Mass Index 36.96 12/14/2019 2:41 PM NON PROFIT DIRECTOR documented in this encounter Progress Notes * Kwesirebeca Shipman, DO - 12/14/2019 2:40 PM CST Images from the original note were not included. GENERAL OFFICE VISIT Encounter Date: 12/14/2019 Chief Complaint: 24-year-old male presents for Follow Up; Depression; and Rash HPI: Pt presents for depression. Pt is seeing Shant[facility] at [facility]. Pt saw them towards the end of [...] file Gets together: Not on file Attends caodaism service: Not on file Active member of [...] 25 [place]; Future Discussion/Summary: Continue f/u with [facility]. Continue triamcinolone prn. Will reorder Vitamin D [...] without psychotic features ([facility])- Primary PTSD (post-traumatic stress disorder) Posttraumatic stress disorder Anxiety Anxiety state, unspecified Rash Rash and other nonspecific skin eruption Vitamin D deficiency Unspecified vitamin D deficiency documented in this encounter Care Teams Lead Assembler Relationship Specialty Start Date End Date Kwesi Shipman DO [address] [place] [phone] PCP - General FAMILY PRACTICE 08/08/19 documented as of this encounter
--- OUTSIDE RECORDS SUMMARY | 2024-10-23 20:21 | XMS_ITS | Encounter Summary ---
Author Organization [facility] Address [address] [place] [address]. 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
--- OUTSIDE RECORDS SUMMARY | 2024-10-23 20:21 | XMS_ITS | Encounter Summary ---
Author Organization [facility] Address [address] [place] [address]. 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
--- OUTSIDE RECORDS SUMMARY | 2024-10-23 20:21 | XMS_ITS | Encounter Summary ---
Author Organization [facility] Address [address] [place] [address]. 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 No / Unsure 12/18/2022 8:53 AM MAIL DISTRIBUTION CLERK documented as of this encounter Plan of Treatment Not on file documented as of this encounter Procedures Procedure Name Priority Date/Time Associated Diagnosis Comments COLLECTION VENOUS BLOOD VENIPUNCTURE Routine 12/18/2022 9:10 AM MAIL DISTRIBUTION CLERK Need for hepatitis C screening test Encounter for preventative adult health care examination Screening for lipid disorders Screening for endocrine, metabolic and immunity disorder Vitamin D deficiency TSH W/REFLEX Routine 12/18/2022 9:09 AM MAIL DISTRIBUTION CLERK Encounter for preventative adult health care examination Screening for lipid disorders Screening for endocrine, metabolic and immunity disorder VITAMIN B-12 Routine 12/18/2022 9:09 AM MAIL DISTRIBUTION CLERK Encounter for preventative adult health care examination Screening for lipid disorders Screening for endocrine, metabolic and immunity disorder COMPREHENSIVE METABOLIC PANEL Routine 12/18/2022 9:09 AM MAIL DISTRIBUTION CLERK Encounter for preventative adult health care examination Screening for lipid disorders Screening for endocrine, metabolic and immunity disorder LIPID PANEL Routine 12/18/2022 9:09 AM MAIL DISTRIBUTION CLERK Encounter for preventative adult health care examination Screening for lipid disorders Screening for endocrine, metabolic and immunity disorder HEPATITIS C ANTIBODY Routine 12/18/2022 9:09 AM MAIL DISTRIBUTION CLERK Need for hepatitis C screening test CBC W/DIFF AUTOMATED Routine 12/18/2022 9:09 AM MAIL DISTRIBUTION CLERK Encounter for preventative adult health care examination Screening for lipid disorders Screening for endocrine, metabolic and immunity disorder VITAMIN D, 25 OH Routine 12/18/2022 9:09 AM MAIL DISTRIBUTION CLERK Encounter for preventative adult health care examination Screening for lipid disorders Screening for endocrine, metabolic and immunity disorder Vitamin D deficiency documented in this encounter Results * (ABNORMAL) CBC W/DIFF AUTOMATED (12/18/2022 9:09 AM MAIL DISTRIBUTION CLERK) WBC 8.65 4.00 - 10.80 x10'3/uL 12/18/2022 2:33 PM MAIL DISTRIBUTION CLERK [facility] RBC 5.28 4.50 - 6.10 x10'6/uL 12/18/2022 2:33 PM [facility] HGB 16.6 13.0 - 18.0 G/DL 12/18/2022 2:33 PM [facility] HCT 48.3 37.0 - 52.0 % 12/18/2022 2:33 PM [facility] MCV 91.5 78.0 - 100.0 FL 12/18/2022 2:33 PM [facility] MCH 31.4(H) 27.0 - 31.0 PG 12/18/2022 2:33 PM [facility] MCHC 34.4 33.0 - 36.0 G/DL 12/18/2022 2:33 PM [facility] RDW 11.7 11.5 - 14.5 % 12/18/2022 2:33 PM [facility] PLT 298 150 - 350 x10'3/uL 12/18/2022 2:33 PM [facility] MPV 9.2 7.4 - 10.4 FL 12/18/2022 2:33 PM [facility] DIFFERENTIAL TYPE AUTOMATED DIFFERENTIAL 12/18/2022 2:33 PM [facility] NEUTROPHILS % 62.7 % 12/18/2022 2:33 PM [facility] LYMPHOCYTES % 27.9 % 12/18/2022 2:33 PM [facility] MONOCYTES % 6.7 % 12/18/2022 2:33 PM [facility] EOSINOPHILS % 2.3 % 12/18/2022 2:33 PM [facility] BASOPHILS % 0.3 % 12/18/2022 2:33 PM [facility] IMMATURE GRANS % 0.1 % 12/18/2022 2:33 PM MAIL DISTRIBUTION CLERK [facility] ABS. NEUTROPHILS 5.42 1.60 - 8.30 x10'3/uL 12/18/2022 2:33 PM MAIL DISTRIBUTION CLERK [facility] ABS. LYMPHOCYTES 2.41 0.80 - 4.70 x10'3/uL 12/18/2022 2:33 PM MAIL DISTRIBUTION CLERK [facility] ABS. MONOCYTES 0.58 0.00 - 1.50 x10'3/uL 12/18/2022 2:33 PM MAIL DISTRIBUTION CLERK [facility] ABS. EOSINOPHILS 0.20 0.00 - 0.40 x10'3/uL 12/18/2022 2:33 PM MAIL DISTRIBUTION CLERK [facility] ABS. BASOPHILS 0.03 0.00 - 0.20 x10'3/uL 12/18/2022 2:33 PM MAIL DISTRIBUTION CLERK [facility] ABS. IMMATURE GRANULOCYTES 0.01 0.00 - 0.03 x10'3/uL 12/18/2022 2:33 PM MAIL DISTRIBUTION CLERK [facility] 12/18/2022 9:09 AM MAIL DISTRIBUTION CLERK us Kwesi Shipman DO LABORATORY Final Re sult [facility] [address] [place] [address], * (ABNORMAL) COMPREHENSIVE METABOLIC PANEL (12/18/2022 9:09 AM MAIL DISTRIBUTION CLERK) Pathologist [facility] SODIUM S/P/B 141 136 - 145 MMOL/L 12/18/2022 3:31 PM [facility] POTASSIUM S/P/B 3.4(L) 3.5 - 5.1 MMOL/L 12/18/2022 3:31 PM [facility] CHLORIDE S/P/B 100 98 - 107 MMOL/L 12/18/2022 3:31 PM MAIL DISTRIBUTION CLERK [facility] CO2 30.2 21 - 32 MMOL/L 12/18/2022 3:31 PM [facility] GLUCOSE 87 70 - 99 MG/DL 12/18/2022 3:31 PM [facility] BUN 10 7 - 18 MG/DL 12/18/2022 3:31 PM [facility] CREATININE S/P/B 0.80 0.70 - 1.30 MG/DL 12/18/2022 3:31 PM [facility] CALCIUM S/P/B 8.5 8.4 - 10.5 MG/DL 12/18/2022 3:31 PM [facility] BILIRUBIN TOTAL S/P/B 0.6 0.2 - 1.0 MG/DL 12/18/2022 3:31 PM [facility] ALKALINE PHOSPHATASE S/P/B 79 45 - 115 U/L 12/18/2022 3:31 PM [facility] AST 20 15 - 37 U/L 12/18/2022 3:31 PM [facility] ALT 27 16 - 63 U/L 12/18/2022 3:31 PM [facility] TOTAL PROTEIN S/P/B 7.1 6.4 - 8.2 G/DL 12/18/2022 3:31 PM [facility] ALBUMIN S/P/B 4.3 3.4 - 5.0 G/DL 12/18/2022 3:31 PM [facility] ANION GAP 10.8 5 - 15 MMOL/L 12/18/2022 3:31 PM [facility] Comment:REFERENCE RANGE NOT ESTABLISHED OSMOLALITY (CALC) 290 MOSM/KG 023 3:31 PM [facility] Comment:REFERENCE RANGE NOT ESTABLISHED GFR ESTIMATE >90 >90 ML/MIN/1. 73 M2 12/18/2022 3:31 PM [facility] GFR NOTES GFR REFERENCE S: 12/18/2022 3:31 PM MAIL DISTRIBUTION CLERK [facility] Comment: THE ESTIMATED GFR IS [...] FAILURE: <15 ml/min/1.73 m2 12/18/2022 9:09 AM MAIL DISTRIBUTION CLERK Kwesi Shipman LABORATORY Final Re sult Performing Organization Address City/[facility]/ZIP Co de Phone Number [facility] [address] [place] [address], [place] [phone] * TSH W/REFLEX (12/18/2022 9:09 AM MAIL DISTRIBUTION CLERK) TSH 1.995 0.358 - 3.740 uIU/ML 12/18/2022 3:31 PM MAIL DISTRIBUTION CLERK [facility] 12/18/2022 9:09 AM MAIL DISTRIBUTION CLERK [facility] Dayami Shipman LABORATORY Final Re sult Performing Organization Address City/[facility]/ZIP Co de Phone Number [facility] [address] [place] [address], [place] [phone] * LIPID PANEL (12/18/2022 9:09 AM MAIL DISTRIBUTION CLERK) CHOLESTEROL 140 <200 MG/DL 12/18/2022 3:31 PM MAIL DISTRIBUTION CLERK [facility] TRIGLYCERIDES 42 <150 MG/DL 12/18/2022 3:31 PM [facility] HDL 58 >40 MG/DL 12/18/2022 3:31 PM [facility] LDL-C 74 <100 MG/DL 12/18/2022 3:31 PM [facility] VLDL CALCULATION 8 5 - 28 MG/DL 12/18/2022 3:31 PM [facility] CHOL/HDL RATIO 2.4 0.0 - 4.0 12/18/2022 3:31 PM [facility] LDL/HDL 1.3 0.41 - 2.13 12/18/2022 3:31 PM [facility] NON HDL CHOLESTEROL 82 <140 MG/DL 12/18/2022 3:31 PM [facility] 12/18/2022 9:09 AM MAIL DISTRIBUTION CLERK Kwesi Shipman DO LABORATORY Final Re sult Performing Organization Address [facility] Co de Phone Number [facility] [address] [place] [phone], * (ABNORMAL) VITAMIN D, 25 OH (12/18/2022 9:09 AM MAIL DISTRIBUTION CLERK) Pathologist [facility] VITAMIN D 25 HYDROXY TOTAL S/P/B 17.7(L) 30 - 100 NG/ML 12/18/2022 3:31 PM MAIL DISTRIBUTION CLERK [facility] Comment: ? DEFICIENT ??<20 ?INSUFFICIENT 20-30 ?SUFFICIENT 30-100 12/18/2022 9:09 AM MAIL DISTRIBUTION CLERK Kwesi Shipman DO LABORATORY Final Re sult Performing Organization Address City/[facility]/ZIP Co de Phone Number [facility] [address] [place] [address], * VITAMIN B-12 (12/18/2022 9:09 AM MAIL DISTRIBUTION CLERK) Pathologist [facility] VITAMIN B12 S/P/B 390 193 - 986 PG/ML 12/18/2022 3:31 PM MAIL DISTRIBUTION CLERK [facility] 12/18/2022 9:09 AM MAIL DISTRIBUTION CLERK Kwesi Shipman DO LABORATORY Final Re sult [facility] [address] [place] [address], * HEPATITIS C ANTIBODY ([facility] ONLY) (12/18/2022 9:09 AM MAIL DISTRIBUTION CLERK) [facility] HEPATITIS C AB NON-REACTI VE NON-REACT HIRO 12/18/2022 6:20 PM MAIL DISTRIBUTION CLERK [facility] Comment: ANTIBODIES TO HCV NOT DETECTED. DOES NOT EXCLUDE THE POSSIBILITY OF EXPOSURE TO HCV. 12/18/2022 9:09 AM MAIL DISTRIBUTION CLERK Kwesi Shipman DO LABORATORY Final Re sult [facility] [address] [place] [address], [id number] documented in this encounter Visit Diagnoses Diagnosis [...] documented as of this encounter Care Teams Plastic Cnc Machine Operator Relationship Specialty Start Date End Date Kwesi Shipman DO [address] [place] [address] PCP - General FAMILY PRACTICE 08/08/19 documented as of this encounter
--- OUTSIDE RECORDS SUMMARY | 2024-10-23 20:21 | XMS_ITS | Encounter Summary ---
Author Organization [facility] Address [address] [place] [address]. [place] [address] Care Team Providers Care Fiberglass Bonding Machine Tender Name Role Phone Kwesi Shipman DO Primary Care Provider + Reason for Referral * Surgical (Routine) - Closed Specialty Diagnoses / Procedures Referred By Jamison t Referred To Contact HAND SURGERY / ORTHOPAEDICS Diagnoses Carpal tunnel syndrome of right wrist Kwesi Shipman DO [address] [place] [address] Phone: tel: fax: Iain Mcdonald MD Phone: tel: fax: Referral ID Status Reason Start Date Expiration Date Visits Re quested Visits Authorized [id number] Closed 02/14/2020 03/15/2021 99 99 Reason for Visit * Reason Comments Depression Encounter Details Date Type Department Care Team (Late st Contact Info) Description 02/14/2020 10:20 AM CDT Telemedicine [facility] Medical Group Family & Internal Medicine [facility] [address] [place] [id number] Kwesi Shipman DO [address] [place], [place] [id number] Depression Social History Tobacco Use Types Packs/Day [...] patient aware that the same confidentiality and medical information officer practices apply. The patient joined the video [...] sciatica documented in this encounter Care Teams Fiberglass Bonding Machine Tender Relationship Specialty Start Date End Date Kwesi Shipman DO [address] [place] [address] PCP - General FAMILY PRACTICE 08/08/19 documented as of this encounter
--- OUTSIDE RECORDS SUMMARY | 2024-10-23 20:21 | XMS_ITS | Encounter Summary ---
Author Organization [facility] Address [address] [place] [address]. [place], [place] [phone] [place] [address] Care Team Providers Care Business Support Liaison Name Role Phone Kwesi Shipman DO Primary [...] on filedocumented in this encounter Care Teams Business Support Liaison Relationship Specialty Start Date End Date Kwesi Shipman DO [address] [place] [address] PCP - General FAMILY PRACTICE 08/08/19 documented as of this encounter
--- OUTSIDE RECORDS SUMMARY | 2024-10-23 20:21 | XMS_ITS | Encounter Summary ---
Author Organization [facility] Address [address] [place] [address]. [place] [address] Care Team Providers Care Horticultural Specialty Grower Name Role Phone Kwesi Shipman DO Primary Care Provider + Reason for Referral * Physical Medicine (Routine) - Closed Specialty Diagnoses / Procedures Referred By Jamison vegas Referred To Contact PHYSICAL THERAPY / [facility] Physical Therapy Diagnoses Abnormal MRI, lumbar spine Kwesi Shipman DO [address] [place] [address] Phone: tel: fax: Referral ID Status Reason Start Date Expiration Date V isits Requested Visits Authorized [id number] Closed Physical Therapy 10/14/2019 11/12/2020 1 1 K [employer] PROFESSION[employer] Reason for Visit * Reason Onset Date Comments Results 10/10/2019 Encounter Details Date Type Department Care Team (Late st Contact Info) Description 10/10/2019 Telephone [facility] Medical Group Family & Internal Medicine [facility] [address] [place] [address] Kwesi Shipman DO [address] [place] [address] Results Social History Tobacco Use [...] on: 10/14/2019 01:23 PM Modules accepted: Orders K 12 SCHOOL PROFESSIONAL * Ritika Pablo RN - 10/14/2019 1:23 PM CST Referral entered. K 12 [employer] PROFESSIONAL * Kwesi Shipman DO - 10/14/2019 10:41 AM CST That is fine. K 12 [employer] PROFESSIONAL * Sandra Tobar MA - 10/14/2019 9:55 AM CST Patient mother called back and states she can not afford PT because it will be a $40 copay for eachvisit. Mother is agreeable to pain management referral Ok to send? K 12 [employer] PROFESSIONAL * Ritika Pablo RN - 10/14/2019 9:03 AM CST Spoke to patient; verbalized understanding. Referral for PT entered. K 12 [employer] PROFESSIONAL * Ritika Pablo RN - 10/13/2019 9:46 AM CST [facility] 10/13/19 K 12 SCHO[employer] PROFESSIONAL * Ritika Pablo RN - 10/11/2019 10:38 AM CST [facility] 10/11/19 K 12 SCHO[employer] PROFESSIONAL * Kwesi Shipman DO - 10/10/2019 9:08 [...] be the next step in management otherwise. K [employer] PROFESSIONAL documented in this encounter Plan of Treatment Scheduled Referrals Name Type Priority Associated Diagnoses Orde r Schedule Ambulatory referral to Physical Therapy Referral Routine Abnormal MRI, lumbar spine Ordered: 10/14/2019 documented as of this encounter Visit Diagnoses Diagnosis Abnormal MRI, lumbar spine- Primary Nonspecific (abnormal) findings on radiological and other examination of musculoskeletal system documented in this encounter Care Teams Horticultural Specialty Grower Relationship Specialty Start Date End Date Kwesi Shipman DO [address] [place] [address] PCP - General FAMILY PRACTICE 08/08/19 documented as of this encounter
--- OUTSIDE RECORDS SUMMARY | 2024-10-23 20:21 | XMS_ITS | Encounter Summary ---
Author Organization [facility] Address [address] [place] [address]. [place] [address] Care Team Providers Care Nick Setter Name Role Phone Kwesi Shipman DO Primary Care Provider + Reason for Visit * Reason Comments Shoulder Pain * Physical Medicine (Routine) - Closed Specialty Diagnoses / Procedures Referred By Jamison vegas Referred To Contact PHYSICAL THERAPY / [facility] Physical Therapy Diagnoses Chronic left shoulder pain Procedures OFFICE/OUTPT VISIT,NEW,LEVL III OFFICE/OUTPT VISIT,NEW,LEVL IV OFFICE/OUTPT VISIT,NEW,LEVL V OFFICE/OUTPT VISIT,EST,LEVL III OFFICE/OUTPT VISIT,EST,LEVL IV OFFICE/OUTPT VISIT,EST,LEVL V Kwesi Shipman DO [address] [place] [address] Phone: tel: fax: [facility] Physical Therapy 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
--- OUTSIDE RECORDS SUMMARY | 2024-10-23 20:21 | XMS_ITS | Encounter Summary ---
Author Organization [facility] Address [address] [place] [address]. 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 No / Unsure 12/18/2022 8:53 AM CELL LINER documented as of this encounter Medications at [...] documented as of this encounter Care Teams Linoleum Layer Relationship Specialty Start Date End Date Kwesi Shipman DO [address] [place] [address] PCP - General FAMILY PRACTICE 08/08/19 documented as of this encounter
--- OUTSIDE RECORDS SUMMARY | 2024-10-23 20:21 | XMS_ITS | Encounter Summary ---
Author Organization [facility] Address [address] [place] [address]. 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
--- OUTSIDE RECORDS SUMMARY | 2024-10-23 20:21 | XMS_ITS | Encounter Summary ---
Author Organization [facility] Address [address] [place] [address]. [place] [address] Care Team Providers Care Cvicu Rn Name Role Phone Kwesi Shipman DO Primary Care Provider + Reason for Referral * Imaging (Routine) - Closed Specialty Diagnoses / Procedures Referred By Jamison vegas Referred To Contact RADIOLOGY Diagnoses Carpal tunnel syndrome on left Procedures OUS GUIDE NEEDLE PLCMT ORTHO Iain Mcdonald MD Phone: tel: fax: Referral ID Status Reason Start Date Expiration Date Visits Re quested Visits Authorized [id number] Closed 04/16/2020 05/17/2021 1 1 Reason for Visit * Reason Comments Carpal Tunnel Syndrome Lt CTS for about 3 mos * Surgical (Routine) - Closed Specialty Diagnoses / Procedures Referred By Jamison vegas Referred To Contact HAND SURGERY / ORTHOPAEDICS Diagnoses Carpal tunnel syndrome of right wrist Kwesi Shipman DO [address] [place] [address] Phone: tel: fax: Iain Mcdonald MD Phone: tel: fax: Referral ID Status Reason Start Date Expiration Date Visits Re quested Visits Authorized [id number] Closed 02/14/2020 03/15/2021 99 99 Encounter Details Date Type Department Care Team (Latest Contact Info) Description 04/16/2020 3:00 PM CDT Office Visit [facility] Medical Group Multispecialty Care - [facility] [address] [place] [phone] Iain Mcdonald MD [address] [place] [address] Carpal Tunnel Syndrome (Lt CTS for about [...] phone, writing, doing desk work, driving, prolonged hold/watershed program manager, prolong elbow flexion, resting arm on desck/chair. Pt also complains of decreased watershed program manager strength, decreased dexterity, and dropping things. Previous [...] ther documented in this encounter Care Teams Cvicu Rn Relationship Specialty Start Date End Date Kwesi Shipman DO [address] [place] [address] PCP - General FAMILY PRACTICE 08/08/19 documented as of this encounter
--- OUTSIDE RECORDS SUMMARY | 2024-10-23 20:21 | XMS_ITS | Encounter Summary ---
Author Organization [facility] Address [address] [place] [address]. 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
--- OUTSIDE RECORDS SUMMARY | 2024-10-23 20:21 | XMS_ITS | Encounter Summary ---
Author Organization [facility] Address [address] [place] [address]. [place] [address] Care Team Providers Care Organization Development Consultant Name Role Phone Kwesi Shipman DO Primary Care Provider + Encounter Details Date Type Department Care Team (Late st Contact Info) Description 01/14/2023 8:20 AM CDT Laboratory Only [facility] Family & Internal Medicine [address] [place] [address] Kwesi Shipman DO 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 Not on file Not [...] - 145 MMOL/L 01/14/2023 3:09 PM CDT [facility] POTASSIUM S/P/B 3.6 3.5 - 5.1 MMOL/L 01/14/2023 3:09 PM CDT [facility] CHLORIDE S/P/B 105 98 - 107 MMOL/L 01/14/2023 3:09 PM CDT [facility] CO2 26.4 21 - 32 MMOL/L 01/14/2023 3:09 PM CDT [facility] GLUCOSE 113(H) 70 - 99 MG/DL 01/14/2023 3:09 PM CDT [facility] BUN 19(H) 7 - 18 MG/DL 01/14/2023 3:09 PM CDT [facility] CREATININE S/P/B 0.82 0.70 - 1.30 MG/DL 01/14/2023 3:09 PM CDT [facility] [place] CALCIUM S/P/B 8.2(L) 8.4 - 10.5 MG/DL 01/14/2023 3:09 PM CDT [facility] ANION GAP 9.6 5 - 15 MMOL/L 01/14/2023 3:09 PM CDT [facility] Comment:REFERENCE RANGE NOT ESTABLISHED OSMOLALITY (CALC) 295 MOSM/KG 023 3:09 PM CDT [facility] Comment:REFERENCE RANGE NOT ESTABLISHED GFR ESTIMATE >90 >90 ML/MIN/1. 73 M2 01/14/2023 3:09 PM CDT [facility] GFR NOTES GFR REFERENCE S: 01/14/2023 3:09 PM CDT [facility] Comment: THE ESTIMATED GFR IS [...] LABORATORY Final Re sult Performing Organization Address City/[facility]/ZIP Co de Phone Number [facility] [address] [place] [address], * MAGNESIUM (01/14/2023 8:16 AM CDT) MAGNESIUM 1.8 1.8 - 2.4 MG/DL 01/14/2023 3:09 PM CDT [facility] 01/14/2023 8:16 AM CDT Kwesi Shipman DO LABORATORY Final Re sult [facility] [place] [address] [place] [address], documented in this encounter Visit Diagnoses Diagnosis Hypopotassemia documented in this encounter Additional Health Concerns Assessment Noted Time PHQ-9 Depression Total Score: 12 021 2:00 PM CDT documented as of this encounter Care Teams Organization Development Consultant Relationship Specialty Start Date End Date Kwesi Shipman DO [address] [place] [address] PCP - General FAMILY PRACTICE 08/08/19 documented as of this encounter
--- OUTSIDE RECORDS SUMMARY | 2024-10-23 20:21 | XMS_ITS | Encounter Summary ---
Author Organization [facility] Address [address] [place] [address]. [place] [id number] [place], [place] [phone] Care Team Providers Care Medical Radiation Therapist Name Role Phone Kwesi Shipman DO Primary Care Provider + Reason for Referral * Consultation/Treatment (Routine) - Closed Specialty Diagnoses / Procedures Referred By Contac t Referred To Contact PAIN MANAGEMENT Diagnoses Chronic bilateral low back pain without sciatica Abnormal MRI, lumbar spine Kwesi Shipman DO [address] [place] [address] Phone: tel: fax: [address] [address] Phone: tel: fax: Referral ID Status Reason Start Date Expiration Date V isits Requested Visits Authorized [id number] Closed Specialty Services 10/20/2019 11/20/2020 100 100 RAL RESOURCES ENGINEER Reason for Visit * Reason Onset Date Comments Referral Request 10/19/2019 Encounter Details Date Type Department Care Team (Late st Contact Info) Description 10/19/2019 Telephone [facility] Family & Internal Medicine - [place] [address] [place] [address] Kwesi Shipman DO [address] [place], [place] [phone] Referral Request Social History Tobacco Use Types [...] - 10/20/2019 9:05 AM CST Referral entered RAL RESOURCES ENGINEER * Ronda Schaffer - 10/19/2019 8:12 AM CST Patients mother came in to switch his pain management referral. They don't want to go to [facility] because its too far. They would like us to switch to the pain management place in [place]. So cancel the original referral and re do a referral for [place] location. RAL RESOURCES ENGINEER documented in this encounter Plan of Treatment [...] system documented in this encounter Care Teams Medical Radiation Therapist Relationship Specialty Start Date End Date Kwesi Shipman DO [address] [place] [address] PCP - General FAMILY PRACTICE 08/08/19 documented as of this encounter
--- OUTSIDE RECORDS SUMMARY | 2024-10-23 20:21 | XMS_ITS | Encounter Summary ---
Author Organization [facility] Address [address] [place] [address]. [place] [address] Care Team Providers Care Parking Control Officer Name Role Phone Kwesi Shipman DO Primary Care Provider + Reason for Visit * Reason Comments Follow Up pt feels like medica tion is helping Encounter Details Date Type Department Care Team (Late st Contact Info) Description 09/12/2019 8:40 AM TELEVISION ENGINEER Office Visit [facility] Family & Internal Medicine [address] [place] [address] Kwesi Shipman DO [address] [place] [address] [phone] Follow Up (pt feels like medication is [...] Comments Blood Pressure 108/60 09/12/2019 8:50 AM TELEVISION ENGINEER Pulse 65 09/12/2019 8:50 AM TELEVISION ENGINEER Temperature 36.8 ??C (98.2 ??F) 09/12/2019 8:50 AM CS T Respiratory Rate 16 09/12/2019 8:50 AM TELEVISION ENGINEER Oxygen Saturation 97% 09/12/2019 8:50 AM TELEVISION ENGINEER Inhaled Oxygen Concentration - - Weight 105.8 kg (233 lb 3 oz) 09/12/2019 8:50 AM TELEVISION ENGINEER Height 172.7 cm (5' 8 ) 09/12/2019 8:50 AM TELEVISION ENGINEER Body Mass Index 35.46 09/12/2019 8:50 AM TELEVISION ENGINEER documented in this encounter Progress Notes * [...] file Gets together: Not on file Attends yarsanism service: Not on file Active member of [...] evaluation. Patient verbalized understanding. Kwesi Shipman DO VISION ENGINEER documented in this encounter Plan of Treatment Not on file documented as of this encounter Visit Diagnoses Diagnosis Severe episode of recurrent major depressive disorder, without psychotic features (CMS/HCC HHS/HCC)- Primary Chronic bilateral low back pain without sciatica Vitamin D deficiency Unspecified vitamin D deficiency documented in this encounter Care Teams Parking Control Officer Relationship Specialty Start Date End Date Kwesi Shipman DO [address] [place] [address] PCP - General FAMILY PRACTICE 08/08/19 documented as of this encounter
--- OUTSIDE RECORDS SUMMARY | 2024-10-23 20:21 | XMS_ITS | Encounter Summary ---
Author Organization [facility] Address [address] [place] [address]. [place], [place] [address] [place] [address] Care Team Providers Care Cart Pusher Name Role Phone Kwesi Shipman DO Primary [...] on filedocumented in this encounter Care Teams Cart Pusher Relationship Specialty Start Date End Date Kwesi Shipman DO [address] [place], [place] [phone] PCP - General FAMILY PRACTICE 08/08/19 documented as of this encounter
--- OUTSIDE RECORDS SUMMARY | 2024-10-23 20:21 | XMS_ITS | Encounter Summary ---
Author Organization [facility] Address [address] [place] [address]. 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
--- OUTSIDE RECORDS SUMMARY | 2024-10-23 20:21 | XMS_ITS | Encounter Summary ---
Author Organization [facility] Address [address] [place] [address]. [place] [address] Care Team Providers Care Software Support Engineer Name Role Phone Kwesi Shipman DO [...] on filedocumented in this encounter Care Teams Software Support Engineer Relationship Specialty Start Date End Date Kwesi Shipman DO [address] [place] [address] PCP - General FAMILY PRACTICE 08/08/19 documented as of this encounter
--- OUTSIDE RECORDS SUMMARY | 2024-10-23 20:21 | XMS_ITS | Encounter Summary ---
Author Organization [facility] Address [address] [place] [address]. [place] [address] Care Team Providers Care At Home Independent Call Center Agent Name Role Phone Kwesi Shipman DO Primary Care Provider + Reason for Visit * Reason Comments Upper Extremity Pain left for 2 weeks Encounter Details Date Type Department Care Team (Late st Contact Info) Description 02/16/2020 7:40 AM CDT Office Visit [facility] Family & Internal Medicine [address] [address] Kwesi Shipman DO [address] [place] [address] [phone] Upper Extremity Pain (left for 2 weeks [...] file Gets together: Not on file Attends advent service: Not on file Active member of [...] D DU ng/mL 02/16/2020 11:02 AM CDT [facility] Comment: TESTING PERFORMED ON [employer] ANALYZER. NOTE: RESULTS OF THIS [...] Kwesi Shipman DO LABORATORY Final Re sult [facility] [address] [place] [address], [place] [phone] documented in this encounter Visit Diagnoses Diagnosis Left hand pain- Primary Pain in limb Swelling of left hand Carpal tunnel syndrome of left wrist Carpal tunnel syndrome documented in this encounter Care Teams At Home Independent Call Center Agent Relationship Specialty Start Date End Date Kwesi Shipman DO [address] [place] [address] PCP - General FAMILY PRACTICE 08/08/19 documented as of this encounter
--- OUTSIDE RECORDS SUMMARY | 2024-10-23 20:21 | XMS_ITS | Encounter Summary ---
Author Organization [facility] Address [address] [place] [address]. 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
--- OUTSIDE RECORDS SUMMARY | 2024-10-23 20:21 | XMS_ITS | Encounter Summary ---
Author Organization [facility] Address [address] [place] [address]. [place] [address] Care Team Providers Care Reactor Kettle Operator Name Role Phone Kwesi Shipman DO Primary Care Provider + Reason for Visit * Reason Onset Date Comments Lab Results 08/25/2019 Encounter Details Date Type Department Care Team (Late st Contact Info) Description 08/25/2019 Telephone [facility] Family & Internal Medicine [address] [place] [address] Kwesi Shipman DO [address] [place] [address] Lab Results Social History Tobacco [...] 12:31 PM CST Patient notified and v/u ERENCE SERVICES DIRECTOR * Ritika Pablo RN - 08/26/2019 10:01 AM CST [facility] 08/26/19 ERENCE SERVICES DIRECTOR * Ritika Pablo RN - 08/25/2019 11:54 AM CST [facility] 08/25/19 ERENCE SERVICES DIRECTOR * Ritika Pablo RN - 08/25/2019 11:50 AM CST ----- Message from Kwesi Shipman DO sent at 08/25/2019 8:01 AM CONFERENCE SERVICES DIRECTOR ----- Only notable abnormality is the low Vitamin D. I'd recommend 2000 IU daily with a recheck of this in 3-6 months. Otherwise labs look okay. Can recheck other labs in 1 year or sooner if needed. ERENCE SERVICES DIRECTOR documented in this encounter Plan of Treatment Not on file documented as of this encounter Visit Diagnoses Not on filedocumented in this encounter Care Teams Reactor Kettle Operator Relationship Specialty Start Date End Date Kwesi Shipman DO [address] [place] [address] PCP - General FAMILY PRACTICE 08/08/19 documented as of this encounter
--- OUTSIDE RECORDS SUMMARY | 2024-10-23 20:21 | XMS_ITS | Encounter Summary ---
Author Organization [facility] Address [address] [place] [address]. [place] [address] Care Team Providers Care Dba Manager Name Role Phone Kwesi Shipman DO [...] on filedocumented in this encounter Care Teams Dba Manager Relationship Specialty Start Date End Date Kwesi Shipman DO [address] [place] [address] PCP - General FAMILY PRACTICE 08/08/19 documented as of this encounter
--- OUTSIDE RECORDS SUMMARY | 2024-10-23 20:21 | XMS_ITS | Encounter Summary ---
Author Organization [facility] Address [address] [place] [address]. 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 No / Unsure 12/18/2022 8:53 AM CAR CUSTOMIZER documented as of this encounter Progress Notes [...] documented as of this encounter Care Teams Station Engineer Main Line Relationship Specialty Start Date End Date Kwesi Shipman DO [address] [place] [address] PCP - General FAMILY PRACTICE 08/08/19 documented as of this encounter
--- OUTSIDE RECORDS SUMMARY | 2024-10-23 20:21 | XMS_ITS | Encounter Summary ---
Author Organization [facility] Address [address] [place] [address]. [place] [address] Care Team Providers Care Pharmacy Informatics Manager Name Role Phone wKesi Shipman DO Primary Care Provider + Reason for Visit * Reason Onset Date Comments Psychiatric Problem 10/19/2019 Encounter Details Date Type Department Care Team (Late st Contact Info) Description 10/19/2019 Telephone [facility] Family & Internal Medicine [address] [place] [phone] Kwesi Shipman DO [address] [place] [address] Psychiatric Problem Social History Tobacco [...] AM CST Thank you for the update. SLATOR AND INTERPRETER * Norma Cifuentes MA - 10/20/2019 10:24 AM CST Patient went to [facility] yesterday and was admitted to [facility] in [place] today per Laura (mom) SLATOR AND INTERPRETER * Radha Sánchez MA - 10/19/2019 3:01 [...] She will give us an update tomorrow. SLATOR AND INTERPRETER * Kwesi Shipman DO - 10/19/2019 8:25 AM CST I would actually recommend ER evaluation today given that description. SLATOR AND INTERPRETER * Ronda Schaffer - 10/19/2019 8:20 AM [...] somewhere. I gave her a flier for [facility] rehab center and a phone number to call [facility]. Her goal is to get him checkedin somewhere today so that he can get the help he needs. SLATOR AND INTERPRETER documented in this encounter Plan of Treatment Not on file documented as of this encounter Visit Diagnoses Not on filedocumented in this encounter Care Teams Pharmacy Informatics Manager Relationship Specialty Start Date End Date Kwesi Shipman DO [address] [place] [address] PCP - General FAMILY PRACTICE 08/08/19 documented as of this encounter
--- OUTSIDE RECORDS SUMMARY | 2024-10-23 20:21 | XMS_ITS | Encounter Summary ---
Author Organization [facility] Address [address] [place] [address]. 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
--- OUTSIDE RECORDS SUMMARY | 2024-10-23 20:21 | XMS_ITS | Encounter Summary ---
Author Organization [facility] Address [address] [place] [address]. [place] [address] Care Team Providers Care Petroleum Plant Operator Name Role Phone Kwesi Shipman DO Primary Care Provider + Reason for Visit * Reason Comments Rash x 2 weeks Encounter Details Date Type Department Care Team (Late st Contact Info) Description 09/21/2019 7:00 AM JAIL KEEPER Office Visit [facility] Group Family & Internal Medicine [address] [address] Kwesi Shipman DO [address] [place] [address] [phone] Rash (x 2 weeks ) Social History [...] Comments Blood Pressure 114/72 09/21/2019 7:09 AM JAIL KEEPER Pulse 45 09/21/2019 7:09 AM JAIL KEEPER Temperature 36.5 ??C (97.7 ??F) 09/21/2019 7:09 AM CS T Respiratory Rate 16 09/21/2019 7:09 AM JAIL KEEPER Oxygen Saturation 98% 09/21/2019 7:09 AM JAIL KEEPER Inhaled Oxygen Concentration - - Weight 103.5 kg (228 lb 3 oz) 09/21/2019 7:09 AM JAIL KEEPER Height 172.7 cm (5' 8 ) 09/21/2019 7:09 AM JAIL KEEPER Body Mass Index 34.7 09/21/2019 7:09 AM JAIL KEEPER documented in this encounter Progress Notes * Kwesi Stock Ramontia, DO - 09/21/2019 7:00 AM CST Images [...] file Gets together: Not on file Attends protestant service: Not on file Active member of [...] eucrisa trial. Pt v/u. Kwesi Shipman DO KEEPER documented in this encounter Plan of Treatment Not on file documented as of this encounter Visit Diagnoses Diagnosis Rash- Primary Rash and other nonspecific skin eruption documented in this encounter Care Teams Petroleum Plant Operator Relationship Specialty Start Date End Date Kwesi Shipman DO [address] [place] [address] PCP - General FAMILY PRACTICE 08/08/19 documented as of this encounter
--- OUTSIDE RECORDS SUMMARY | 2024-10-23 20:21 | XMS_ITS | Encounter Summary ---
Author Organization [facility] Address [address] [place] [address]. 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 No / Unsure 12/11/2022 1:09 PM [employer] MEMBER[employer] SALES AGENT documented as of this encounter Plan of Treatment Not on file documented as of this encounter Visit Diagnoses Not on filedocumented in this encounter Additional Health Concerns Assessment Noted Time PHQ-9 Depression Total Score: 12 021 2:00 PM CDT documented as of this encounter Care Teams Control Specialist Relationship Specialty Start Date End Date Kwesi Shipman DO [address] [place] [address] PCP - General FAMILY PRACTICE 08/08/19 documented as of this encounter
--- OUTSIDE RECORDS SUMMARY | 2024-10-23 20:21 | XMS_ITS | Encounter Summary ---
Author Organization [facility] Address [address] [place] [address]. [place] [address] Care Team Providers Care Hogshead Wrecker Name Role Phone Kwesi Shipman DO Primary Care Provider + Reason for Referral * Imaging (Routine) - Closed Specialty Diagnoses / Procedures Referred By Jamison vegas Referred To Contact RADIOLOGY Diagnoses Abdominal hernia without obstruction and without gangrene, recurrence not specified, unspecified hernia type Periumbilical abdominal pain k46.[address] ABD+PEL W CON Kwesi Shipman DO [address] [place] [address] Phone: tel: fax: [facility] [address] [facility] [address] [place] [address] Phone: tel: fax: Referral ID Status Reason Start Date Expiration Date Visits Re quested Visits Authorized [id number] Closed 04/09/2021 05/08/2021 1 1 * Consultation/Treatment (Urgent) - Closed Specialty Diagnoses / Procedures Referred By Jamison vegas Referred To Contact Neurology Psychiatry Diagnoses Severe episode of recurrent major depressive disorder, without psychotic features ([facility]/HCC [facility]/HCC) PTSD (post-traumatic stress disorder) Kwesi Shipman DO [address] [place] [address] Phone: tel: fax: Robbi Montague MD Phone: tel: fax: Referral ID Status Reason Start Date Expiration Date V isits Requested Visits Authorized [id number] Closed Specialty Services 04/03/2021 05/03/2022 99 99 Reason for Visit * Reason Comments Depression follow up Encounter Details Date Type Department Care Team (Late st Contact Info) Description 04/03/2021 2:00 PM CDT Office Visit [facility] Medical Group Family & Internal Medicine [facility] [address] [place] [address] Kwesi Shipman DO [facility] [place] [address] Depression (follow up ) Social History Tobacco [...] 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 documented in this encounter Progress Notes [...] was recently in a mental facility at [facility]; per pt, this was in October. Pt will have moments where he spazes out. He is trying meditation. He quit drinking alcohol. Pt is having difficulty with sleep. His anxiety is going as high as it can. He is not seeing anyone at [facility] at this time and will not go back. Pt was referred to [facility] at some point and was given alprazolam 1 mg. He had a problem with a pill count in the past. He states he is unsure what medications he was given after he was discharged from [facility]. Pt has been on Zyprexa, Cymbalta, and [...] Not on file Occupational History ??? 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 Smoking [...] Gatherings with Friends and Family: ??? Attends Uatsdin Services: ??? Active Member of Clubs or [...] recurrent major depressive disorder, without psychotic features ([facility]/HCC [facility]) PTSD (post-traumatic stress disorder) Ordered: [...] Re sult [facility] [address] [place] [address] * (ABNORMAL) VITAMIN D, 25 [place] (04/03/2021 [...] and its performance characteristics determined by the [employer]. It has not been cleared or approved by the U.S. FDA. The [employer]. is regulated under Clinical Laboratory Improvement Amendments [...] D 25 HYDROXY D3 S/P/B 30.4 ng/mL [facility]. Comment: This test was developed and its analytical performance characteristics have been determined by [facility]. It has not been cleared or approved by the FDA. This assay has been validated pursuant to the CLIA regulations and is used for clinical purposes. VITAMIN D 25 HYDROXY D2 S/P/B <1.0(L) ng/mL [facility]enn[facility]. Comment: This test was developed and its analytical performance characteristics have been determined by [facility]. It has not been cleared or approved by the FDA. This assay has been validated pursuant to the CLIA regulations and is used for clinical purposes. 04/03/2021 2:31 PM CDT 04/04/2021 5:15 AM CDT Kwesi Shipman DO LABORATORY Final Re sult [facility]. [address], [address] [place] [address] * LIPID PANEL (04/03/2021 2:31 PM CDT) [...] LDL-C. Gurvinder SS et al. KAVYA. 2013;310(19): 7927-3929 (http://education.Zooomr.Blue Dot World/faq/NBT384) CHOL/HDL RATIO 2.2 <5.0 (calc) [facility] [...] LABORATORY Final Re sult Performing Organization Address City/[facility]/ZIP Co de Phone Number [facility] [address] [place] [address] * TSH W/REFLEX (04/03/2021 2:31 PM CDT) TSH 1.93 0.40 - 4.50 mIU/L [facility] 04/03/2021 2:3 1 PM CDT 04/04/2021 5:32 AM CDT Kwesi Shipman DO LABORATORY Final Re sult Performing Organization Address [facility] Co de Phone Number [facility] [address] [place] [address] * COMPREHENSIVE METABOLIC PANEL (04/03/2021 2:31 PM CDT) GLUCOSE 69 65 - 99 mg/dL [facility] Comment: ? Fasting reference interval BUN 15 7 - 25 mg/dL [facility] CREATININE S/P/B 0.97 0.60 - 1.35 mg/dL [facility] EGFR NON-AFR. AMER. 108 > OR = 60 mL/min/1. 73m2 [facility] EGFR AFR. AMER. 125 > OR = 60 mL/min/1. 73m2 [facility] BUN CREATININE RATIO NOT APPLICABLE 6 - 22 (calc) [facility] SODIUM S/P/B 141 135 - 146 mmol/L [facility] POTASSIUM S/P/B 4.9 3.5 - 5.3 mmol/L [facility] CHLORIDE S/P/B 102 98 - 110 mmol/L [facility] CO2 22 20 - 32 mmol/L [facility] CALCIUM S/P/B 10.0 8.6 - 10.3 mg/dL [facility] TOTAL PROTEIN S/P/B 7.0 6.1 - 8.1 g/dL [facility] ALBUMIN S/P/B 4.4 3.6 - 5.1 g/dL [facility] GLOBULIN 2.6 1.9 - 3.7 g/dL (calc) [facility] ALBUMIN/GLOBULI N RATIO 1.7 1.0 - 2.5 (calc) [facility] BILIRUBIN TOTAL S/P/B 0.5 0.2 - 1.2 mg/dL [facility] ALKALINE PHOSPHATASE S/P/B 63 36 - 130 U/L [facility] AST 19 10 - 40 U/L [facility] ALT 14 9 - 46 U/L [facility] 04/03/2021 2:31 PM CDT 04/04/2021 5:32 AM CDT Kwesi Shipman DO LABORATORY Final Re sult [facility] [address] [facility] [place] [address] * (ABNORMAL) CBC W/DIFF AUTOMATED (04/03/2021 2:31 [...] sult [facility] [address] [place] [address] documented in this encounter Visit Diagnoses Diagnosis Severe episode of recurrent major depressive disorder, without psychotic features ([facility]/HCC [facility])- Primary PTSD (post-traumatic stress disorder) [...] documented as of this encounter Care Teams Hogshead Wrecker Relationship Specialty Start Date End Date Kwesi Shipman DO [address] [place] [address] PCP - General FAMILY PRACTICE 08/08/19 documented as of this encounter
--- OUTSIDE RECORDS SUMMARY | 2024-10-23 20:21 | XMS_ITS | Encounter Summary ---
Author Organization [facility] Address [address] [place] [address]. 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 Contact letter sent * Sandra Tobar MA - 04/11/2021 2:57 PM CDT [facility] 04/11/21 * Norma Cifuentes MA - [...] documented as of this encounter Care Teams Video Effects Editor Relationship Specialty Start Date End Date Kwesi Shipman DO [address] [place] [address] PCP - General FAMILY PRACTICE 08/08/19 documented as of this encounter
--- OUTSIDE RECORDS SUMMARY | 2024-10-23 20:21 | XMS_ITS | Encounter Summary ---
Author Organization [facility] Address [address] [place] [address]. [place] [address] Care Team Providers Care Artificial Breeding Ranch Supervisor Name Role Phone Kwesi Shipman DO [...] on filedocumented in this encounter Care Teams Artificial Breeding Ranch Supervisor Relationship Specialty Start Date End Date Kwesi Shipman DO [address] [place], [place] [phone] PCP - General FAMILY PRACTICE 08/08/19 documented as of this encounter
--- OUTSIDE RECORDS SUMMARY | 2024-10-23 20:21 | XMS_ITS | Encounter Summary ---
Author Organization [facility] Address [address] [place] [address]. 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 Informed her of lab results. Informed patient's [...] documented as of this encounter Care Teams Compensator Relationship Specialty Start Date End Date Kwesi Shipman DO [address] [place] [address] PCP - General FAMILY PRACTICE 08/08/19 documented as of this encounter
--- OUTSIDE RECORDS SUMMARY | 2024-10-23 20:21 | XMS_ITS | Encounter Summary ---
Author Organization [facility] Address [address] [place] [address]. [place] [phone] Care Team Providers Care Front Desk Assistant Name Role Phone Kwesi Shipman DO Primary [...] on filedocumented in this encounter Care Teams Front Desk Assistant Relationship Specialty Start Date End Date Kwesi Shipman DO [address] [place] [address] PCP - General FAMILY PRACTICE 08/08/19 documented as of this encounter
--- OUTSIDE RECORDS SUMMARY | 2024-10-23 20:21 | XMS_ITS | Encounter Summary ---
Author Organization [facility] Address [address] [place] [address]. [place] [address] Care Team Providers Care Pin Maker Name Role Phone Kwesi Shipman DO Primary [...] on filedocumented in this encounter Care Teams Pin Maker Relationship Specialty Start Date End Date Kwesi Shipman DO [address] [place] [address] PCP - General FAMILY PRACTICE 08/08/19 documented as of this encounter
--- OUTSIDE RECORDS SUMMARY | 2024-10-23 20:21 | XMS_ITS | Encounter Summary ---
Author Organization [facility] Address [address] [place] [address]. [place] [address] Care Team Providers Care Ux Designer Name Role Phone Kwesi Shipman DO Primary Care Provider + Encounter Details Date Type Department Care Team (Late st Contact Info) Description 08/23/2019 2:00 PM HORSE STUD WORKER Laboratory Only [facility] Medical Group Family & Internal Medicine [address] [phone] Social History Tobacco Use Types Packs/Day Years [...] VENOUS BLOOD VENIPUNCTURE Routine 08/23/2019 1:52 PM HORSE STUD WORKER Annual physical exam Screening for endocrine, metabolic and immunity disorder documented in this encounter Visit Diagnoses Diagnosis Annual physical exam- Primary Routine general medical examination at a health care facility Screening for endocrine, metabolic and immunity disorder documented in this encounter Care Teams Ux Designer Relationship Specialty Start Date End Date Kwesi Shipman DO [facility] [place] [address] PCP - General FAMILY PRACTICE 08/08/19 documented as of this encounter
--- OUTSIDE RECORDS SUMMARY | 2024-10-23 20:21 | XMS_ITS | Encounter Summary ---
Author Organization [facility] Address [address] [place] [address]. [place] [address] Care Team Providers Care Economics Instructor Name Role Phone Kwesi Shipman DO Primary [...] OFFICE/OUTPT VISIT,EST,LEVL V Kwesi Shipman DO [address] [place] [address] Phone: tel: fax: [facility] Medical Group General Surgery [address], [address] [address] Phone: tel: fax: Referral ID Status Reason Start Date Expiration Date V isits Requested Visits Authorized [id number] Pending Review 02/09/2024 03/12/2025 99 99 Reason for Visit * Reason Comments Cough Patient states he is having some chest discomfort from coughing. 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
--- OUTSIDE RECORDS SUMMARY | 2024-10-23 20:21 | XMS_ITS | Encounter Summary ---
Author Organization [facility] Address [address] [place] [address]. [place] [address] Care Team Providers Care User Experience Architect Name Role Phone Kwesi Shipman DO Primary [...] on filedocumented in this encounter Care Teams User Experience Architect Relationship Specialty Start Date End Date Kwesi Shipman DO [address] [place], [place] [phone] PCP - General FAMILY PRACTICE 08/08/19 documented as of this encounter
--- OUTSIDE RECORDS SUMMARY | 2024-10-23 20:21 | XMS_ITS | Encounter Summary ---
Author Organization [facility] Address [address] [place] [address]. 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 No / Unsure 12/18/2022 8:53 AM WATER TANKER DRIVER documented as of this encounter Progress Notes [...] CDT To: Kwesi Shipman DO Subject: FW: Marcellusaprpateince Pt. Concerns please advise ----- Message ----- [...] recurrent major depressive disorder, without psychotic features ([facility]/HCC [facility])- Primary documented in this encounter Additional Health Concerns Assessment Noted Time PHQ-9 Depression Total Score: 12 021 2:00 PM CDT documented as of this encounter Care Teams Machine Precision Engraver Relationship Specialty Start Date End Date Kwesi Shipman DO [address] [place] [address] PCP - General FAMILY PRACTICE 08/08/19 documented as of this encounter
--- OUTSIDE RECORDS SUMMARY | 2024-10-23 20:21 | XMS_ITS | Encounter Summary ---
Author Organization [facility] Address [address] [place] [address]. [place], [place] [address] [place], [place] [phone] Care Team Providers Care Shovel Engineer Name Role Phone Mahnaz Shipmanchary Dayami HURTADO Primary Care Provider + Encounter Details Date Type Department Care Team (Late st Contact Info) Description 04/16/2020 Orders Only [facility] Medical Group Multispecialty Care - [address], [address] [place] [address] Whit Daniels RN Social History [...] on filedocumented in this encounter Care Teams Shovel Engineer Relationship Specialty Start Date End Date Kwesi Shipman DO [address] [place] [address] PCP - General FAMILY PRACTICE 08/08/19 documented as of this encounter
--- OUTSIDE RECORDS SUMMARY | 2024-10-23 20:21 | XMS_ITS | Encounter Summary ---
Author Organization [facility] Address [address] [place] [address]. 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 Financial [...] file Gets together: Not on file Attends jain service: Not on file Active member of [...] major depressive disorder, without psychotic features (CMS/HCC [facility]/HCC) documented in this encounter Additional Health Concerns Assessment Noted Time PHQ-9 Depression Total Score: 0 05/24/20 20 9:31 AM CDT documented as of this encounter Care Teams Special Needs Caregiver Relationship Specialty Start Date End Date Kwesi Shipman DO [address] [place] [address] PCP - General FAMILY PRACTICE 08/08/19 documented as of this encounter
--- OUTSIDE RECORDS SUMMARY | 2024-10-23 20:21 | XMS_ITS | Encounter Summary ---
Author Organization [facility] Address [address] [place] [address]. 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 No / Unsure 12/11/2022 1:09 PM SOCIAL SERVICE LIAISON documented as of this encounter Progress Notes * Norma Cifuentes MA - 12/12/2022 8:00 AM CST Patient contacted and informed of results and recommendations. Voiced understanding tn [place] SERVICE LIAISON * Norma Cifuentes MA - 12/12/2022 7:58 AM CST ----- Message from Kwesi Shipman DO sent at 12/11/2022 9:03 PM SOCIAL SERVICE LIAISON ----- No acute fracture on shoulder XR, although there is a possible old chip fracture. This would not change the recommendation for starting with PT. No abnormality noted on XR of cervical spine. [place] SERVICE LIAISON documented in this encounter Plan of Treatment Not on file documented as of this encounter Visit Diagnoses Not on filedocumented in this encounter Additional Health Concerns Assessment Noted Time PHQ-9 Depression Total Score: 12 021 2:00 PM CDT documented as of this encounter Care Teams Detonator Maker Relationship Specialty Start Date End Date Kwesi Shipman DO [address] [place] [address] PCP - General FAMILY PRACTICE 08/08/19 documented as of this encounter
--- OUTSIDE RECORDS SUMMARY | 2024-10-23 20:21 | XMS_ITS | Encounter Summary ---
Author Organization [facility] Address [address] [place] [address]. 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
--- OUTSIDE RECORDS SUMMARY | 2024-10-23 20:21 | XMS_ITS | Encounter Summary ---
Author Organization [facility] Address [address] [place] [address]. [place] [address] Care Team Providers Care Beater And Pulper Feeder Name Role Phone Kwesi Shipman DO Primary Care Provider + Reason for Visit * Reason Onset Date Comments Results 02/16/2020 Encounter Details Date Type Department Care Team (Late st Contact Info) Description 02/16/2020 Telephone [facility] Medical Group Family & Internal Medicine [place] [address] [place] [address] Kwesi Shipman DO [address] [place], [place] [phone] Results Social History Tobacco Use Types Packs/Day [...] on filedocumented in this encounter Care Teams Beater And Pulper Feeder Relationship Specialty Start Date End Date Kwesi Shipman DO [address] [place] [address] PCP - General FAMILY PRACTICE 08/08/19 documented as of this encounter
--- OUTSIDE RECORDS SUMMARY | 2024-10-23 20:21 | XMS_ITS | Encounter Summary ---
Author Organization [facility] Address [address] [place] [address]. [place] [address] Care Team Providers Care Defence Force Member Other Ranks Name Role Phone Saumya Nunes DO Primary Care Provider + Reason for Visit * Reason Onset Date Comments Advise 10/24/2019 Encounter Details Date Type Department Care Team (Late st Contact Info) Description 10/24/2019 Telephone [facility] Family & Internal Medicine [facility] [address] [place] [phone] Saumya Nunes DO [address] [place] [address] Advise Social History Tobacco Use [...] 8:07 AM CST Mother informed and v/u AL WORK COORDINATOR * Patsy Sepulveda MA - 10/24/2019 3:16 PM CST LMTC 10/24/18 AL WORK COORDINATOR * Saumya Nunes DO - 10/24/2019 12:33 PM CST Pt is not on librium per our records. If pt is in facility, this is typically managed by the doctorat the facility. Regardless, I have not prescribed this medicine nor do I routinely do so. AL WORK COORDINATOR * Melissa Molina MA - 10/24/2019 12:10 PM CST Refill request received from Patient Patient called stated that he is currently in the crisis unit at [facility] was therefor detox and now there in [...] in FAMILY PRACTICE was on: 09/21/2019 in [facility] Future Appointments Date Time Provider Department Center 12/14/2019 2:40 PM Saumya Nunes DO [id number] [place], [place] - [address] [place] [address] AT [facility] [phone] [facility] [phone] Current Outpatient Medications: ??? cyclobenzaprine 10 MG [...] times daily., Disp: 45 g, Rfl: 0 AL WORK COORDINATOR documented in this encounter Plan of Treatment Not on file documented as of this encounter Visit Diagnoses Not on filedocumented in this encounter Care Teams Defence [employer] Member Other Ranks Relationship Specialty Start Date End Date Saumya Nunes DO [address] [place] [id number] PCP - General FAMILY PRACTICE 08/08/19 documented as of this encounter
--- OUTSIDE RECORDS SUMMARY | 2024-10-23 20:21 | XMS_ITS | Encounter Summary ---
Author Organization [facility] Address [address] [place] [address]. [place] [address] Care Team Providers Care Record Tester Name Role Phone Kwesi Shipman DO Primary [...] on filedocumented in this encounter Care Teams Record Tester Relationship Specialty Start Date End Date Kwesi Shipman DO [address] [place] [id number] PCP - General FAMILY PRACTICE 08/08/19 documented as of this encounter
--- OUTSIDE RECORDS SUMMARY | 2024-10-23 20:21 | XMS_ITS | Encounter Summary ---
Author Organization [facility] Address [address] [place] [address]. [place], [place] [phone] [place] [address] Care Team Providers Care Traffic Manager Name Role Phone CalvinbrendalillycharanjitMahnazKwesi Dayami HURTADO Primary Care Provider + Reason for Visit * Reason Onset Date Comments No Show 01/07/2023 Patient failed t o keep appointment. When telephoned patient states his had surgery today and he forgot to call. Will call to reschedule. Encounter Details Date Type Department Care Team (Late st Contact Info) Description 01/07/2023 Telephone [facility] Physical Therapy [address] [facility] [address] [place] [address] Call, Karl Dumont PTA [facility] [place] [address] No Show (Patient failed to keep appointment. 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
--- OUTSIDE RECORDS SUMMARY | 2024-10-23 20:21 | XMS_ITS | Encounter Summary ---
Author Organization [facility] Address [address] [place] [address]. [place] [address] Care Team Providers Care Risk Management Intern Name Role Phone Kwesi Shipman DO Primary Care Provider + Reason for Visit * Reason Onset Date Comments Carpal Tunnel Syndrome 02/14/2020 Encounter Details Date Type Department Care Team (Late st Contact Info) Description 02/14/2020 Telephone [facility] Family & Internal Medicine [place] [phone] [place] [phone] Kwesi Shipman DO [address] [place] [address] Carpal Tunnel Syndrome Social History [...] they have wrist splints for CTS at [facility], so I recommend he purchase one from there. We can send an order if we need to. (We talked about this during his virtual visit today). documented in this encounter Plan of Treatment Not on file documented as of this encounter Visit Diagnoses Not on filedocumented in this encounter Care Teams Risk Management Intern Relationship Specialty Start Date End Date Kwesi Shipman DO [address] [place] [phone] PCP - General FAMILY PRACTICE 08/08/19 documented as of this encounter
--- OUTSIDE RECORDS SUMMARY | 2024-10-23 20:21 | XMS_ITS | Encounter Summary ---
Author Organization [facility] Address [address] [place] [address]. 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
--- OUTSIDE RECORDS SUMMARY | 2024-10-23 20:21 | XMS_ITS | Encounter Summary ---
Author Organization [facility] Address [address] [place] [address]. [place] [address] Care Team Providers Care Landcare Facilitator Name Role Phone Kwesi Shipman DO Primary Care Provider + Reason for Visit * Reason Onset Date Comments Information 02/16/2020 Encounter Details Date Type Department Care Team (Late st Contact Info) Description 02/16/2020 Telephone [facility] Family & Internal Medicine [place] [phone] [place] [phone] Kwesi Shipman DO [address] [place], [place] [phone] Information Social History Tobacco Use Types Packs/Day [...] on filedocumented in this encounter Care Teams Landcare Facilitator Relationship Specialty Start Date End Date Kwesi Shipman DO [address] [place] [address] PCP - General FAMILY PRACTICE 08/08/19 documented as of this encounter
--- OUTSIDE RECORDS SUMMARY | 2024-10-23 20:21 | XMS_ITS | Encounter Summary ---
Author Organization [facility] Address [address] [place] [address]. [place] [phone] [place], [place] [phone] Care Team Providers Care Student Services Counselor Name Role Phone Kwesi Shipman DO Primary Care Provider + Encounter Details Date Type Department Care Team (Latest Contact Info) Description 08/23/2019 6:09 PM BLASTING MINER - 08/23/2019 11:59 PM [facility] Hospital Encounter [facility] [place] [address] Kwesi Shipman DO [address] [place], [place] [phone] Discharge Disposition: Home or Self Care (Routine [...] recurrent major depressive disorder, without psychotic features ([facility]/HCC HHS/HCC) Take 1 tab daily for 1 week, then take 2 tabs daily 60 capsule 2 08/08/2019 09/12/2019 documented as of this encounter Plan of Treatment Not on file documented as of this encounter Procedures Procedure Name Priority Date/Time Associated Diagnosis Comments TSH W/REFLEX Routine 08/23/2019 1:41 PM BLASTING MINER Annual physical exam Screening for endocrine, metabolic and immunity disorder COMPREHENSIVE METABOLIC PANEL Routine 08/23/2019 1:41 PM BLASTING MINER Annual physical exam Screening for endocrine, metabolic and immunity disorder CBC W/DIFF AUTOMATED Routine 08/23/2019 1:41 PM BLASTING [facility]ER Annual physical exam Screening for endocrine, metabolic and immunity disorder VITAMIN D, 25 OH Routine 08/23/2019 1:41 PM BLASTING MINER Annual physical exam Screening for endocrine, metabolic and immunity disorder documented in this encounter Results * (ABNORMAL) VITAMIN D, 25 OH (08/23/2019 1:41 PM BLASTING MINER) Pathologist [facility] VITAMIN D 25 HYDROXY S/P/B 19(L) 30 - 100 NG/ML 08/23/2019 8:18 PM BLASTING MINER [facility] Comment: ? INTERPRETATION ? DEFICIENT ??<20 ? INSUFFICIENT 20-29 ?SUFFICIENT 30-100 08/23/2019 1:41 PM BLASTING MINER us Kwesi Shipman DO LABORATORY Final Re sult [facility] [address] [place] [address], [place] [phone] * TSH W/REFLEX (08/23/2019 1:41 PM BLASTING MINER) Pathologist [facility] TSH 2.520 0.358 - 3.74 uIU/ML 08/23/2019 7:53 PM [facility] Comment: HIGH DOSES OF BIOTIN MAY INTERFERE WITH THIS TEST RESULT. CORRELATION TO CLINICAL HISTORY AND PRESENTATION RECOMMENDED. FREE T4 NOT INDICATED 08/23/2019 1:41 PM BLASTING MINER Kwesi Shipman DO LABORATORY Final Re sult [facility] [address] [place] [address], [place] [phone] * (ABNORMAL) COMPREHENSIVE METABOLIC PANEL (08/23/2019 1:41 PM BLASTING MINER) GLUCOSE 74 70 - 99 MG/DL 08/23/2019 7:53 PM [facility] BUN 12 7 - 18 MG/DL 08/23/2019 7:53 PM [facility] CREATININE S/P/B 0.91 0.7 - 1.3 MG/DL 08/23/2019 7:53 PM [facility] SODIUM S/P/B 141 136 - 145 MMOL/L 08/23/2019 7:53 PM [facility] POTASSIUM S/P/B 4.1 3.5 - 5.1 MMOL/L 08/23/2019 7:53 PM [facility] CHLORIDE S/P/B 108 100 - 108 MMOL/L 08/23/2019 7:53 PM [facility] CO2 26.8 21 - 32 MMOL/L 08/23/2019 7:53 PM [facility] CALCIUM S/P/B 8.9 8.5 - 10.1 MG/DL 08/23/2019 7:53 PM [facility] BILIRUBIN TOTAL S/P/B 0.7 0.2 - 1.2 MG/DL 08/23/2019 7:53 PM [facility] TOTAL PROTEIN S/P/B 6.8 6.4 - 8.2 G/DL 08/23/2019 7:53 PM [facility] ALBUMIN S/P/B 4.2 3.4 - 5.0 G/DL 08/23/2019 7:53 PM [facility] AST 14(L) 15 - 37 U/L 08/23/2019 7:53 PM [facility] ALT 24 16 - 60 U/L 08/23/2019 7:53 PM [facility] ALKALINE PHOSPHATASE S/P/B 72 50 - 136 U/L 08/23/2019 7:53 PM [facility] ANION GAP 6.2 5 - 15 MMOL/L 08/23/2019 7:53 PM [facility] BUN CREATININE RATIO 13.2 6 - 26 08/23/2019 7:53 PM [facility] A/G RATIO 1.6 1.0 - 2.0 RATIO 08/23/2019 7:53 PM [facility] EGFR NON-AFR. AMER. >90 >90 ML/MIN/1.7 3 M2 08/23/2019 7:53 PM [facility] EGFR AFR. AMER. >90 >90 ML/MIN/1.7 3 M2 08/23/2019 7:53 PM [facility] Comment: NOTE: eGFR is not calculated for patients <18 years of age. This is an estimated GFR (CKD EPI) and should not be used for calculating drug doses. 08/23/2019 1:41 PM BLASTING MINER us Kwesi Shipman DO LABORATORY Final Re sult [facility] [address] [place] [address], [place] [phone] * (ABNORMAL) CBC W/DIFF AUTOMATED (08/23/2019 1:41 PM BLASTING MINER) [facility] WBC 8.8 4.5 - 11.0 x10'3/uL 08/23/2019 8:08 PM [facility] RBC 5.47 4.70 - 6.10 x10'6/uL 08/23/2019 8:08 PM [facility] HGB 16.4 14.0 - 18.0 G/DL 08/23/2019 8:08 PM [facility] HCT 50.3 43.0 - 54.0 % 08/23/2019 8:08 PM [facility] MCV 92.0 80.0 - 94.0 FL 08/23/2019 8:08 PM [facility] MCH 30.0 27.0 - 31.0 PG 08/23/2019 8:08 PM [facility] MCHC 32.6 32.0 - 36.0 G/DL 08/23/2019 8:08 PM [facility] RDW 11.9 11.5 - 14.5 % 08/23/2019 8:08 PM [facility] PLT 265 130 - 400 x10'3/uL 08/23/2019 8:08 PM [facility] MPV 10.1 9.3 - 12.2 FL 08/23/2019 8:08 PM [facility] DIFFERENTIAL TYPE AUTOMATED DIFFERENTIAL 08/23/2019 8:08 PM [facility] NEUTROPHILS % 49.6 % 08/23/2019 8:08 PM [facility] LYMPHOCYTES % 35.6 % 08/23/2019 8:08 PM [facility] MONOCYTES % 9.8 % 08/23/2019 8:08 PM [facility] EOSINOPHILS 4.0 % 08/23/2019 8:08 PM BLASTING MINER [facility] BASOPHILS 0.7 % 08/23/2019 8:08 PM [facility] IMMATURE GRANS % 0.3 % 08/23/20 19 8:08 PM [facility] ABS. NEUTROPHILS TOTAL 4.35 1.80 - 7.70 x10'3/uL 08/23/2019 8:08 PM [facility] ABS. LYMPHOCYTES 3.12 1.00 - 4.80 x10'3/uL 08/23/2019 8:08 PM [facility] ABS. MONOCYTES 0.86(H) 0.30 - 0.82 x10'3/uL 08/23/2019 8:08 PM [facility] ABS. EOSINOPHILS 0.35 0.04 - 0.54 x10'3/uL 08/23/2019 8:08 PM [facility] ABS. BASOPHILS 0.06 0.01 - 0.08 x10'3/uL 08/23/2019 8:08 PM [facility] ABS. IMMATURE GRANULOCYTES 0.03 0.00 - 0.49 x10'3/uL 08/23/2019 8:08 PM [facility] 08/23/2019 1:41 PM BLASTING [facility]ER us Kwesi Shipman DO LABORATORY Final Re sult [facility] [address] [place] [address], [place] [phone] documented in this encounter Visit Diagnoses Diagnosis Annual physical exam Routine general medical examination at a health care facility Screening for endocrine, metabolic and immunity disorder documented in this encounter Care Teams Student Services Counselor Relationship Specialty Start Date End Date Kwesi Shipman DO [address] [place] [phone] PCP - General FAMILY PRACTICE 08/08/19 documented as of this encounter
--- OUTSIDE RECORDS SUMMARY | 2024-10-23 20:21 | XMS_ITS | Encounter Summary ---
Author Organization [facility] Address [address] [place] [address]. 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 No / Unsure 12/18/2022 8:53 AM [employer]OR [employer] documented as of this encounter Plan of Treatment Not on file documented as of this encounter Visit Diagnoses Not on filedocumented in this encounter Additional Health Concerns Assessment Noted Time PHQ-9 Depression Total Score: 12 021 2:00 PM CDT documented as of this encounter Care Teams Director Of Enrollment Relationship Specialty Start Date End Date Kwesi Shipman DO [address] [place] [id number] PCP - General FAMILY PRACTICE 08/08/19 documented as of this encounter
== END 2024-10-17 12:51 | disposition home or self-care (01) ==
PROVIDERS: Emergency Provider Physician Assistant
DX: J10.1 Influenza due to other identified influenza virus with other respiratory manifestations (principal); Z20.822 Contact with and (suspected) exposure to COVID-19; F17.210 Nicotine dependence, cigarettes, uncomplicated
CPT/HCPCS: 87637; 87651; 99283